=== PATIENT | female | born 1940 | race Caucasian/White ===

== ENCOUNTER → 2022-06-21 12:52 | Outpatient (CLI) | payer MEDICARE, BC, SELFPAY ==
--- NOTE | 2022-06-21 | DI.CT.S_ITS ---
PROCEDURE: CT SINUS SCREEN WO CON INDICATIONS: Deviated nasal septum TECHNIQUE: Noncontrast 3.0 mm axial images acquired from the frontal sinuses to the mid-sella, with coronal and sagittal reformats. For radiation dose reduction, the following was used: automated exposure control, adjustment of mA and/or kV according to patient size. COMPARISON: None. FINDINGS: Image quality: Excellent. Maxillary Sinuses: No bony remodeling or destruction. Sinuses are clear. Ethmoid Air Cells: No bony remodeling or destruction. Sinuses are clear. Sphenoid Sinuses: No bony remodeling or destruction. Sinuses are clear. Frontal Sinuses: No bony remodeling or destruction. Sinuses are clear. Ostiomeatal Complexes: Ostiomeatal complexes are patent. No John cells. Miscellaneous: Visualized intra-orbital contents are normal. No nicky bullosa or paradoxical turbinate curvature. No nasal septal deviation. IMPRESSION: 1. Nasal septum is very nearly midline. 2. Sinuses are clear Dictated by: Rodney Alfred M.D. on 06/21/2022 at 15:35 Approved by: Rodney Alfred M.D. on 06/21/2022 at 15:36
== END ==
PROVIDERS: PCP Family Medicine; Referring Provider Otolaryngology; Visit Provider Otolaryngology
DX: J32.4 Chronic pansinusitis (principal); J34.89 Other specified disorders of nose and nasal sinuses; G44.89 Other headache syndrome
CPT/HCPCS: 70486

== ENCOUNTER → 2023-01-03 09:05 | Outpatient (CLI) | payer MEDICARE, BC, SELFPAY ==
--- NOTE | 2023-01-03 | DI.ECHO.S_ITS ---
[facility] +---------+ : : [address] : : : : [id number] : : : : Phone: [phone]+ Echocardiogram Report + + :Name: CAMRYN PENA Study Date: 01/03/2023 Height: 66 in : :[facility] ReadingLocation: Weight: 125 lb : : Gender: Female BSA: 1.6 m2 : :: 1940 Age: 82 yrs BP: 160/79 mmHg: :Reason For Study: Shortness of Breath : :Ordering Physician: REA, : :LURDES Performed By: Leonie Terrazas : :Referring: LURDES HUERTA : + + Interpretation Summary 1) Normal left ventricular thicknes and, size with low normal systolic function (EF 50-55%). 2) Normal right ventricular size and function. 3) There is mild aortic regurgitation. 4) No prior Echo available for comparison. Procedure: A two-dimensional transthoracic echocardiogram with color flow and Doppler was performed. The study quality was technically adequate. There is no prior echocardiogram noted for this patient. Left Ventricle: The left ventricle is normal in size and wall thickness. The ejection fraction is estimated to be 50-55%. There are no focal wall motion abnormalities. Diastolic parameters suggest a relaxation abnormality of the left ventricle, consistent with probable normal filling pressures. Right Ventricle: The right ventricle is normal in size and function. Atria: The left atrial size is normal. Right atrial size is normal. There is no Doppler evidence for an interatrial shunt. Mitral Valve: The mitral valve is normal. There is no mitral valve stenosis. There is trace mitral regurgitation. Aortic Valve: The aortic valve is trileaflet. There is mild aortic valve sclerosis. There is no aortic valve stenosis. There is mild aortic regurgitation. Tricuspid Valve: The tricuspid valve is normal. There is no tricuspid stenosis. There is mild tricuspid regurgitation. The right ventricular systolic pressure is estimated to be at least 32 mmHg based on an estimated right atrial pressure of 3 mm Hg. Pulmonic Valve: The pulmonic valve is not well visualized. There is no pulmonic valvular stenosis. There is trace pulmonic regurgitation. Great Vessels: The aortic root is normal size. The ascending aorta is normal in size. The pulmonary artery is normal size. The IVC is of normal diameter and collapses greater than 50% with a sniff. This suggests a low right atrial pressure of 3 mm Hg. Pericardium/ Pleura There is no pericardial effusion. There is no pleural effusion. MMode/2D Measurements & Calculations LVIDd: 4.4 cm LVOT diam: 1.9 cm LVIDs: 3.3 cm Ao root diam: 3.3 cm FS: 25.0 % asc Aorta Diam: 3.4 cm EPSS: 1.3 cm IVSd: 0.90 cm LVPWd: 0.90 cm LV mancia. diameter/BSA (cm/m^2): 2.7 LV sys. diameter/BSA (cm/m^2): 2.0 LA A2 area: 18.0 cm2 RA long axis: 5.1 cm LA A4 area: 12.0 cm2 RA area: 12.6 cm2 LA length (vol): 5.3 cm RA vol: 26.5 ml LA vol: 34.5 ml RA : 16.2 ml/m2 LA vol index: 21.1 ml/m2 RVD1 (basal): 3.1 cm LVLs ap4: 6.9 cm LVLd ap2: 7.2 cm TAPSE_phl: 2.3 cm LVLs ap2: 6.5 cm Doppler Measurements & Calculations Ao V2 max: 109.5 cm/sec LVOT Max Michael: 90.0 cm/sec Ao V2 mean: 77.7 cm/sec LV V1 max P.2 mmHg Ao max P.0 mmHg LV V1 VTI: 19.1 cm Ao mean P.0 mmHg PAZ(I,D): 2.2 cm2 Ao V2 VTI: 24.5 cm PAZ(V,D): 2.3 cm2 sev ratio: 0.78 PAZ indexed to BSA (cm^2/m^2): 1.3 MV E max michael: 58.2 cm/sec TR max michael: 267.0 cm/sec MV A max michael: 110.0 cm/sec TR max P.5 mmHg MV E/A: 0.53 PA V2 max: 91.2 cm/sec Med Peak E' Michael: 7.1 cm/sec PA V2 mean: 62.7 cm/sec E/E' med: 8.2 PA mean P.0 mmHg Lat Peak E' Michael: 8.6 cm/sec PA pr(Accel): 43.5 mmHg E/E' lat: 6.8 E/e' average: 7.5 MV dec time: 0.24 sec SV(LVOT): 54.0 ml AV VR_phl: 0.82 PAZ(VTI)/BSA_phl: 1.3 Reading Physician:09:49 PM
== END ==
PROVIDERS: PCP Family Medicine; Referring Provider Internal Medicine Cardiovascular Disease; Visit Provider Internal Medicine Cardiovascular Disease
DX: R06.02 Shortness of breath (principal); I08.2 Rheumatic disorders of both aortic and tricuspid valves
CPT/HCPCS: 93306

== ENCOUNTER → 2023-01-24 09:35 | Outpatient (CLI) | payer MEDICARE, BC, SELFPAY | PROVIDERS: PCP Family Medicine; Referring Provider Internal Medicine Cardiovascular Disease; Visit Provider Internal Medicine Cardiovascular Disease | DX: R06.02 Shortness of breath (principal); Z87.891 Personal history of nicotine dependence; J98.8 Other specified respiratory disorders | CPT/HCPCS: 94060; 94726; 94729 ==

== ENCOUNTER 2023-04-17 08:01 | Emergency (ER) | payer MEDICARE, BC, SELFPAY ==
[2023-04-17] VITALS (8 sets, daily range): BP systolic 142–174; BP diastolic 78–83; PULSE 79–92; RESP 15–20; TEMP 36.6–36.8; O2SAT 94–100; BMI 21.2
--- NOTE | 2023-04-17 08:12 | ED_ITS ---
HPI - SOB/Dyspnea General Chief Complaint: Shortness of Breath/Dyspnea Stated Complaint: SOB Time Seen by Provider: 04/17/23 08:02 Source: patient, EMS, RN notes reviewed and old records reviewed Mode of arrival: EMS Limitations: no limitations History of Present Illness HPI Narrative: This is an 83-year-old female with history of hypertension and COPD. Patient states has had a slow decrease in her breathing but particularly in the last 2 days. She is felt more tight. She denies any chest pain or pressure. No fevers. She is noticed some nasal congestion or difficulty breathing through her nose. Patient states she has had a dry cough that has been nonproductive. Denies diaphoresis. Denies nausea or vomiting. No diarrhea or constipation, no urinary symptoms. She is chronic swelling bilateral lower extremities she is unsure if it is any worse but does not think so. Patient does an albuterol inhaler which he has been using but finding less helpful for the last day. She does not have steroid inhalers. She states her medications at home for blood pressure. She is allergic to penicillin. She has not recently been on any prednisone but has taken it in the past. Note history of smoking quit 20 years ago. PCP is Dr. Coronel. Related Data Home Medications Medication Instructions Recorded Confirmed vitamins A,C,P-emuo-mpqygj 4,296 1 cap PO BID 02/27/22 02/27/22 mcg-226 mg-90 mg capsule (PreserVision AREDS) Previous Rx's Medication Instructions Recorded albuterol sulfate 90 mcg/actuation See Rx Instructions .Route 04/17/23 breath activated powder inhaler .COMPLEX PRN shortness of breath or wheezing #1 ea prednisone 10 mg tablets in a dose See Rx Instructions PO .COMPLEX 04/17/23 pack #21 ea Allergies Allergy/AdvReac Type Severity Reaction Status Date / Time Penicillins Allergy Intermediate Rash and Verified 02/27/22 09:30 swelling Shell beans Allergy Intermediate swelling Uncoded 02/27/22 09:30 and blistering around mouth, rash Review of Systems Review of Systems ROS Unobtainable: All systems reviewed & are unremarkable except as noted in HPI and below Patient History Medical History COPD (chronic obstructive pulmonary disease) Macular degeneration Tinnitus Hearing loss Surgical History Anesthesia History of surgery on wrist (~2017) Family History Father History of emphysema Mother Alzheimer's disease Brother No problems noted. Social History Smoking Status: Former smoker (Quit 1998 ) Tobacco: How many years used: 30 alcohol intake: current (1 glass of wine weekly ) substance use type: does not use Smoking Status: Former smoker (Quit 1998 ) Exam Narrative Exam Narrative: GENERAL: Alert and oriented x three, elderly female in mild distress. HEENT: Head normocephalic, atraumatic, EOMI, pupils reactive, face symmetric, moist mucous membranes NECK: Supple, full range of motion CARDIOVASCULAR: Regular rate and rhythm without murmurs, rubs or gallops. No JVD. Mild bilateral lower extremity edema, nonpitting. RESPIRATORY: Breath sounds equal bilaterally, faint expiratory wheezes bilateral upper and lower lungs, no tachypnea, speaks in full sentences. No rales or crackles. Patient is receiving nebulizer treatment during evaluation. ABDOMEN: Soft, nontender. Normoactive bowel sounds all 4 quadrants. No guarding or rebound, rigidity, no mass : No CVA tenderness EXTREMITIES: Normal range of motion, no clubbing. Neurovascularly intact NEUROLOGICAL: Cranial nerves II through XII grossly intact. Moving all extremities SKIN: Warm, dry, no petechiae, no rashes or lesions. Initial Vital Signs Initial Vital Signs: Vital Signs Blood Pressure 174/79 H 04/17/23 08:05 Course Orders Ordered: Discontinued Medications Albuterol (Albuterol 2.5 Mg/3 Ml Neb (Adult)) 5 mg INH NOW ONE Stop: 04/17/23 08:12 Last Admin: 04/17/23 08:33 Dose: 5 mg Documented By: SAT Methylprednisolone (Methylprednisolone 125 Mg/2 Ml Vial) 125 mg IV NOW ONE Stop: 04/17/23 08:11 Last Admin: 04/17/23 08:50 Dose: 125 mg Documented By: RB Vital Signs Vital signs: Vital Signs - 8 hr 04/17/23 08:05 04/17/23 08:06 04/17/23 08:12 Temperature 98.2 F Pulse Rate 80 79 Respiratory Rate 20 Blood Pressure 174/79 H 174/79 H Pulse Oximetry 100 94 Oxygen Delivery Method Room Air 04/17/23 08:30 04/17/23 08:37 04/17/23 08:38 Temperature Pulse Rate 80 82 Respiratory Rate 18 Blood Pressure 147/83 H Pulse Oximetry 97 99 Oxygen Delivery Method Room Air 04/17/23 08:38 04/17/23 09:00 Temperature Pulse Rate 84 82 Respiratory Rate 15 Blood Pressure Pulse Oximetry 98 94 Oxygen Delivery Method MDM - SOB/Dyspnea Lab Data 04/17/23 08:25 04/17/23 08:25 Labs: Lab Results 04/17/23 Range/Units 08:25 WBC 4.6 (4.5-11.0) X10^3/uL RBC 4.09 (4.0-5.2) X10^6/uL Hgb 12.7 (12.0-16.0) g/dL Hct 37.5 (36-46) % MCV 91.5 (80-100) fL MCH 31.1 (26-34) PG MCHC 34.0 (30-36) % RDW 13.2 (11.6-14.8) % Plt Count 251 (150-400) X10^3/uL Neut % (Auto) 46.2 L (50-75) % Lymph % (Auto) 31.7 (25-40) % Faulk % (Auto) 14.3 H (3-14) % Eos % (Auto) 6.5 H (2-4) % Baso % (Auto) 1.3 (0-2) % Neut # (Auto) 2100 (4539-1414) /uL Lymph # (Auto) 1500 (2971-0411) /uL Faulk # (Auto) 700 (0-900) /uL Eos # (Auto) 300 (0-450) /uL Baso # (Auto) 100 (0-100) /uL Sodium 129 L (137-145) mmol/L Potassium 4.1 (3.4-5.1) mmol/L Chloride 94 L (98-107) mmol/L Carbon Dioxide 29 (22-32) mmol/L BUN 14 (7-17) mg/dL Creatinine 0.57 (0.52-1.04) mg/dL Estimated GFR > 60 (>60) mL/min BUN/Creatinine Ratio 24.6 H (6-22) Glucose 95 (80-110) mg/dL Calcium 9.7 (8.4-10.2) mg/dL Total Bilirubin 0.9 (0.2-1.3) mg/dL AST 30 (14-36) IU/L ALT 25 (<35) IU/L Alkaline Phosphatase 75 (38-126) U/L Total Creatine Kinase 66 (30-135) U/L Troponin I < 0.012 (0.01-0.034) ng/mL NT-Pro-B Natriuret Pep 601 H (<450) pg/mL Total Protein 7.5 (6.3-8.2) g/dL Albumin 4.3 (3.5-5.0) g/dL Globulin 3.2 (1.7-4.1) g/dL Albumin/Globulin Ratio 1.3 (1.0-2.8) Lipase 370 H (23-300) U/L SARS-CoV-2 (PCR) Negative (Negative) Influenza A (RT-PCR) Flu a negative (NEGATIVE) Influenza B (RT-PCR) Flu b negative (NEGATIVE) RSV (PCR) Negative (Negative) Imaging Data Chest x-ray: Radiologist's Impression: Close Chest X-Ray (Signed) Mercedes Armendariz - 04/17/23 PFT Result 01/24/23 Echocardiogram Ultrasound (Signed) BradleyAmbika - 01/03/[address] (Signed) Rodney Alfred - 06/21/22 [place] [address] XRay Report Signed Patient: Allyson Alas MR#: [id number] : 1940 Acct:[id number] Age/Sex: 83 / F Date of Service: 04/17/23 Loc: ED Accession Number: [id number] Procedure: XR chest 1V Ordering Provider: Tanya Smart D.O. PROCEDURE: XR CHEST 1V INDICATIONS: sob, wheeze, hx COPD TECHNIQUE: One view of the chest was acquired. COMPARISON: None. FINDINGS: Surgical changes and devices: None. Lungs and pleura: Lungs are clear. No pleural effusions or pneumothorax. Mediastinum: Mediastinal contours appear normal. Heart size is normal. Bones and chest wall: No suspicious bony lesions. Overlying soft tissues appear unremarkable. IMPRESSION: No acute cardiopulmonary abnormality is seen. Dictated by: Mercedes Armendariz M.D. on 04/17/2023 at 9:05 Approved by: Mercedes Armendariz M.D. on 04/17/2023 at 9:05 ECG Data Attestation: I personally reviewed and interpreted this ECG as follows: Prior ECG tracings: not available for review Interpretation: Sinus rhythm rate of 79 IN 170 QRS is 72 QTC of 426. No acute ST elevation or depression appreciated. Does not have any priors for comparison. MDM Narrative Medical decision making narrative: 83-year-old female with known COPD and hypertension who is wheezy on examination, does not appear to be in significant respiratory distress. Vital signs patient is hypertensive but no hypoxia. 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 Patient does have some wheezes on examination. Suspect possible viral syndrome causing flare of her COPD but patient does have some mild edema bilateral lower extremities she does not believe that is much worse than typical so will include labs, chest x-ray EKG. Labs show no leukocytosis no leftward shift, normal hemoglobin and platelets elevation of monocytes 14%. Sodium is 129 chloride 94 normal creatinine and potassium normal LFTs troponins negative with a BNP of 601 and lipase of 370. COVID/influenza/RSV is negative Chest x-ray shows no acute change EKG no priors for comparison but no acute changes. Patient noted to have echo from December of 2022 with a EF of 50-55%, right ventricular size and function mild aortic regurg. Plan for Solu-Medrol, additional albuterol and re-evaluation patient's wheeze has almost entirely resolved she feels much improved. Reviewed all if patient's findings suspect she has viral syndrome flaring her COPD at this time. She typically uses her albuterol 4-5 times daily but does 2 puffs at a time we will have her increase to 4-8 puffs daily, offered to write for nebulizer but patient defers. We will also place her on steroids for short term. Discussed return precautions all questions answered. Patient felt comfortable with this plan she does describe a lot of congestion in the nasal area so discussed can try an oral antihistamine [id number]. Discharge Plan Departure Patient Disposition: Home Clinical Impression: Acute exacerbation of chronic obstructive pulmonary disease Instructions: DI for Chronic Obstructive Pulmonary Disease Activity Restrictions/Additional Instructions: Please follow up for recheck if you are not having any improvement over the next several days. Take steroids until gone. Use inhaler 2-4 puffs every 4 hours as needed for wheezing or shortness of breath. Prescription sent to [facility] in [place]. You can take a loratadine or similar antihistamine [id number] once daily for nasal congestion. Please return if you are having new or worsening symptoms, new chest pain, increasing shortness of breath, lightheadedness or passing out, increasing swelling in extremities or other new or concerning changes. Prescriptions: New prednisone 10 mg tablets,dose pack See Rx Instructions .ROUTE .COMPLEX Qty: 21 0RF Rx Instructions: Take 6 tablets p.o. x1 day, then 5 tablets p.o. x1 day, then 4 tablets p.o. x1 day, then 3 tablets p.o. x1 day, then 2 tablets p.o. x1 day, then 1 tablet p.o. x1 day albuterol sulfate 90 mcg/actuation aerosol powdr breath activated See Rx Instructions .ROUTE .COMPLEX PRN (Reason: shortness of breath or wheezing) Qty: 1 0RF Rx Instructions: May use 4-8 puffs Q4 hours prn wheezing/shortness of breath No Action PreserVision AREDS 14,320-226-200 [id number] capsule 1 cap PO BID Referrals: Chinedu Coronel [Primary Care Provider] - Stand Alone Forms: Patient Portal/API
[2023-04-17 08:33] LABS: Add Manual Diff / Slide Review NO; Basophils Absolute Auto 100 /uL (0-100); Basophils Percent Auto 1.3 % (0-2); Eosinophils Absolute Auto 300 /uL (0-450); Eosinophils Percent Auto 6.5 % (2-4); Hematocrit 37.5 % (36-46); Hemoglobin 12.7 g/dL (12.0-16.0); Lymphocytes Absolute Auto 1500 /uL (1100-4500); Lymphocytes Percent Auto 31.7 % (25-40); Mean Corpuscular Hemoglobin 31.1 PG (26-34); Mean Corpuscular Volume 91.5 fL (80-100); Monocytes Absolute Auto 700 /uL (0-900); Monocytes Percent Auto 14.3 % (3-14); Neutrophils Absolute Auto 2100 /uL (1500-7000); Neutrophils Percent Auto 46.2 % (50-75); Platelet Count 251 X10^3/uL (150-400); Red Blood Cell Count 4.09 X10^6/uL (4.0-5.2); Red Cell Distribution Width 13.2 % (11.6-14.8); White Blood Cell Count 4.6 X10^3/uL (4.5-11.0)
[2023-04-17] MEDS: ALBUTEROL 2.5 MG/3 ML NEB (ADULT) 5 MG INH (08:33)
[2023-04-17 08:44] LABS: Alanine Aminotransferase 25 IU/L (<35); Albumin 4.3 g/dL (3.5-5.0); Albumin Globulin Ratio 1.3 (1.0-2.8); Alkaline Phosphatase 75 U/L (38-126); Aspartate Aminotransferase 30 IU/L (14-36); BUN Creatinine Ratio 24.6 (6-22); Bilirubin Total 0.9 mg/dL (0.2-1.3); Blood Urea Nitrogen 14 mg/dL (7-17); Calcium 9.7 mg/dL (8.4-10.2); Carbon Dioxide 29 mmol/L (22-32); Chloride 94 mmol/L (98-107); Creatine Kinase 66 U/L (30-135); Estimated Glomerular Filt Rate > 60 mL/min (>60); Globulin 3.2 g/dL (1.7-4.1); Glucose 95 mg/dL (80-110); HEMOLYSIS < 15 (0-50); Lipase 370 U/L (23-300); Potassium 4.1 mmol/L (3.4-5.1); Sodium 129 mmol/L (137-145); Total Protein 7.5 g/dL (6.3-8.2)
[2023-04-17] MEDS: methylPREDNISolone 125 MG/2 ML VIAL IV (08:50)
[2023-04-17 08:56] LABS: NT-proBNP (BNP-Adult 18+) 601 pg/mL (<450); Troponin I < 0.012 ng/mL (0.01-0.034)
[2023-04-17 09:09] LABS: Influenza A - CEPHEID Flu A NEGATIVE (NEGATIVE); Influenza B - CEPHEID Flu B NEGATIVE (NEGATIVE); Respiratory Syncytial Virus Negative (Negative)
[2023-04-17 09:10] LABS: COVID-19 CEPHEID 4-PLEX PCR Negative (Negative)
== END 2023-04-17 09:41 | disposition home or self-care (01) ==
PROVIDERS: Emergency Provider Emergency Medicine; PCP Family Medicine
DX: J44.1 Chronic obstructive pulmonary disease with (acute) exacerbation (principal)
CPT/HCPCS: 0241U; 36415; 71045; 80053; 82550; 83690; 83880; 84484; 85025; 93005; 93010; 96374; 99284; J2930; J7613

== ENCOUNTER → 2023-10-22 13:51 | Outpatient (CLI) | payer MEDICARE, BC, SELFPAY ==
[2023-10-22 15:25] LABS: BUN Creatinine Ratio 22.2 (6-22); Blood Urea Nitrogen 18 mg/dL (7-17); Calcium 8.7 mg/dL (8.4-10.2); Carbon Dioxide 26 mmol/L (22-32); Chloride 95 mmol/L (98-107); Estimated Glomerular Filt Rate > 60 mL/min (>60); Glucose 117 mg/dL (80-110); HEMOLYSIS < 15 (0-50); Potassium 4.4 mmol/L (3.4-5.1); Sodium 130 mmol/L (137-145)
== END ==
PROVIDERS: PCP Family Medicine; Referring Provider Family Medicine; Visit Provider Family Medicine
DX: I10 Essential (primary) hypertension (principal); E87.1 Hypo-osmolality and hyponatremia
CPT/HCPCS: 36415; 80048

== ENCOUNTER → 2024-04-16 15:21 | Outpatient (CLI) | payer MEDICARE, BC, SELFPAY ==
[2024-04-16 16:33] LABS: Influenza A - CEPHEID Flu A POSITIVE (NEGATIVE); Influenza B - CEPHEID Flu B NEGATIVE (NEGATIVE); Respiratory Syncytial Virus Negative (Negative)
[2024-04-16 16:52] LABS: COVID-19 CEPHEID 4-PLEX PCR Negative (Negative)
== END ==
PROVIDERS: PCP Family Medicine; Visit Provider Nurse Practitioner Family
DX: R05.1 Acute cough (principal)
CPT/HCPCS: 0241U

== ENCOUNTER → 2024-04-16 16:00 | Outpatient (CLI) | payer MEDICARE, BC, SELFPAY ==
--- NOTE | 2024-04-16 16:04 | DI.RAD.S_ITS ---
PROCEDURE: XR CHEST 2V INDICATIONS: Cough TECHNIQUE: 2 views of the chest were acquired. COMPARISON: [facility], CR, XR CHEST 1V, 04/17/2023, 8:27. FINDINGS: Surgical changes and devices: None. Lungs and pleura: Lungs are clear. No pleural effusions or pneumothorax. Mediastinum: Mediastinal contours are normal. Heart size is normal. Bones and chest wall: No suspicious bony abnormalities. Soft tissues appear unremarkable. IMPRESSION: No acute cardiopulmonary abnormality is seen. Dictated by: Tio Charles M.D. on 04/16/2024 at 16:25 Approved by: Tio Charles M.D. on 04/16/2024 at 16:26
== END ==
LOC: RAD 16:04
PROVIDERS: PCP Family Medicine; Referring Provider Physician Assistant; Visit Provider Physician Assistant
DX: R05.1 Acute cough (principal)
CPT/HCPCS: 0241U; 71046

== ENCOUNTER 2024-04-18 12:09 | Inpatient (IN) | payer MEDICARE, BC, SELFPAY ==
[2024-04-18] VITALS (19 sets, daily range): BP systolic 157–180; BP diastolic 77–106; PULSE 83–149; RESP 16–46; TEMP 36.6–36.9; O2SAT 82–96; BMI 20.1
--- NOTE | 2024-04-18 12:37 | DI.RAD.S_ITS ---
PROCEDURE: XR CHEST 2V INDICATIONS: cough, flu A TECHNIQUE: 2 views of the chest were acquired. COMPARISON: [facility], , XR CHEST 1V, 04/17/2023, 8:27. [facility], CR, XR CHEST 2V, 04/16/2024, 16:13. FINDINGS: Surgical changes and devices: None. Lungs and pleura: The lungs are hyperexpanded, with flattening of the hemidiaphragms seen. No pneumothorax or large pleural effusion can be seen. Mediastinum: The cardiac contours are within normal limits. The aorta demonstrates calcification and tortuosity. Bones and chest wall: No suspicious bony abnormalities. Age-appropriate bony degenerative changes are seen. Accentuated thoracic kyphosis is seen. Soft tissues appear unremarkable. IMPRESSION: Hyperexpanded lungs, without an acute cardiopulmonary process identified. Dictated by: Barrett Garg M.D. on 04/18/2024 at 12:28 Approved by: Barrett Garg M.D. on 04/18/2024 at 12:30
[2024-04-18] MEDS: ALBUTEROL/IPRATROPIUM 3 ML AMPUL 6 ML INH (15:14)
--- NOTE | 2024-04-18 15:20 | PC.NURSE ---
Pt appears in respiratory distress. Pt is nasal flaring and using accessory muscles to breath. RT called for evaluation. Pt has productive cough. VSS.
--- NOTE | 2024-04-18 15:21 | EKG_ITS ---
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
[2024-04-18 15:22] LABS: Add Manual Diff / Slide Review NO; Basophils Absolute Auto 0 /uL (0-100); Basophils Percent Auto 0.2 % (0-2); Eosinophils Absolute Auto 0 /uL (0-450); Eosinophils Percent Auto 0.1 % (2-4); Hematocrit 37.1 % (36-46); Hemoglobin 12.5 g/dL (12.0-16.0); Lymphocytes Absolute Auto 1000 /uL (1100-4500); Lymphocytes Percent Auto 16.4 % (25-40); Mean Corpuscular HGB Conc 33.7 % (30-36); Mean Corpuscular Hemoglobin 30.4 PG (26-34); Mean Corpuscular Volume 90.2 fL (80-100); Monocytes Absolute Auto 700 /uL (0-900); Monocytes Percent Auto 11.6 % (3-14); Neutrophils Absolute Auto 4400 /uL (1500-7000); Neutrophils Percent Auto 71.7 % (50-75); Platelet Count 293 X10^3/uL (150-400); Red Blood Cell Count 4.12 X10^6/uL (4.0-5.2); Red Cell Distribution Width 13.5 % (11.6-14.8); White Blood Cell Count 6.1 X10^3/uL (4.5-11.0)
[2024-04-18 15:36] LABS: Alanine Aminotransferase 45 IU/L (<35); Albumin 4.4 g/dL (3.5-5.0); Albumin Globulin Ratio 1.5 (1.0-2.8); Alkaline Phosphatase 100 U/L (38-126); Aspartate Aminotransferase 61 IU/L (14-36); BUN Creatinine Ratio 22.2 (6-22); Bilirubin Total 0.5 mg/dL (0.2-1.3); Blood Urea Nitrogen 12 mg/dL (7-17); Calcium 9.4 mg/dL (8.4-10.2); Carbon Dioxide 23 mmol/L (22-32); Chloride 95 mmol/L (98-107); Creatine Kinase 222 U/L (30-135); Estimated Glomerular Filt Rate > 60 mL/min (>60); Globulin 2.9 g/dL (1.7-4.1); Glucose 109 mg/dL (80-110); HEMOLYSIS < 15 (0-50); Lipase 236 U/L (23-300); Potassium 5.2 mmol/L (3.4-5.1); Sodium 129 mmol/L (137-145); Total Protein 7.3 g/dL (6.3-8.2)
--- NOTE | 2024-04-18 15:39 | ED.SOB ---
HPI - SOB/Dyspnea General Chief Complaint: Shortness of Breath/Dyspnea Stated Complaint: flu Time Seen by Provider: 04/18/24 14:28 Mode of arrival: Ambulatory History of Present Illness HPI Narrative: Patient is a 84-year-old female history of COPD emphysema hypertension recently diagnosed with influenza a 2 days ago presenting today with increasing shortness of breath. There was an issue with the prednisone prescription did not get ordered however she started it yesterday or today. Still having significant difficulty breathing mostly with exertion. She feels like her chest is tight. She coughs so hard she vomits. She also notes to have significant lower extremity edema bilaterally. She has no prior history of congestive heart failure. She was drinking fluids but does have decrease in appetite. Related Data Home Medications Medication Instructions Recorded Confirmed vitamins A,C,O-vwnh-nnsvrc 4,296 1 cap PO BID 02/27/22 04/16/24 mcg-226 mg-90 mg capsule (PreserVision AREDS) albuterol sulfate 90 mcg/actuation 2 puff inhalation Q6H PRN wheezing 10/22/23 04/16/24 aerosol inhaler losartan 50 mg tablet 50 mg PO DAILY 04/16/24 04/16/24 Previous Rx's Medication Instructions Recorded albuterol sulfate 90 mcg/actuation 2 inh inhalation Q6H PRN shortness 07/02/23 breath activated powder inhaler of breath or wheezing #1 ea fluticasone 250 mcg-salmeterol 50 1 inh inhalation BID #60 ea 07/02/23 mcg/dose blistr powdr for inhalation amlodipine 5 mg tablet (Norvasc) 5 mg PO DAILY #90 tabs 10/22/23 furosemide 20 mg tablet 20 mg PO DAILY #20 tabs 12/05/23 albuterol sulfate 2.5 mg/3 mL 2.5 mg (3 mL) inhalation Q6H #75 mL 04/17/24 (0.083 %) solution for nebulization benzonatate 200 mg capsule 200 mg PO BID-TID PRN cough #30 04/17/24 caps prednisone 10 mg tablets in a dose 10 mg PO DAILY #21 ea 04/17/24 pack furosemide 20 mg tablet 20 mg PO DAILY #5 tabs 04/18/24 Allergies Allergy/AdvReac Type Severity Reaction Status Date / Time doxycycline Allergy Intermediate TENNITIUS Verified 04/18/24 12:38 Penicillins Allergy Intermediate Rash and Verified 04/18/24 12:38 swelling Shell beans Allergy Intermediate swelling Uncoded 04/18/24 12:38 and blistering around mouth, rash Patient History Medical History Benign essential HTN COPD (chronic obstructive pulmonary disease) Macular degeneration Tinnitus Hearing loss Surgical History Anesthesia History of surgery on wrist (~2017) Family History Father History of emphysema Mother Alzheimer's disease Brother No problems noted. Social History Smoking Status: Former smoker Tobacco: How many years used: 30 alcohol intake: current (1 glass of wine weekly ) substance use type: does not use Smoking Status: Former smoker alcohol intake frequency: a few times a week Exam Initial Vital Signs Initial Vital Signs: Vital Signs Temperature 98 F 04/18/24 12:31 Pulse Rate 104 H 04/18/24 12:31 Respiratory Rate 18 04/18/24 12:31 Blood Pressure 180/85 H 04/18/24 12:31 Pulse Oximetry 94 04/18/24 12:31 Oxygen Delivery Method Room Air 04/18/24 12:31 GENERAL: Alert 84-year-old female and in no acute distress. HEENT: Head atraumatic,EOMI, pupils reactive, face symmetric, moist mucous membranes CARDIOVASCULAR: Regular rate and rhythm without murmurs, rubs or gallops. RESPIRATORY: Wheezing bilaterally ABDOMEN: Soft, nontender. Normoactive bowel sounds all 4 quadrants. No guarding or rebound. EXTREMITIES: Normal range of motion, no clubbing. Bilateral lower extremity edema Neurovascularly intact NEUROLOGICAL: Alert and oriented x4.Normal gait and speech. Cranial nerves II through XII grossly intact. SKIN: Warm, dry, no laceration, no petechiae, no rashes or lesions. Course Orders Ordered: ED Orders 04/18/24 12:37 Chest [XR chest 2V] Stat 04/18/24 14:29 EKG-12 Lead Stat 04/18/24 15:15 Complete Blood Count AUTO DIFF Stat Comprehensive Metabolic Panel Stat Lipase Stat NT-proBNP (BNP-Adult 18+) Stat Troponin & CK Cardiac Panel Stat 04/18/24 16:10 Sputum Culture Stat Discontinued Medications Albuterol/Ipratropium (Albuterol/Ipratropium 3 Ml Ampul) 6 ml INH NOW ONE Stop: 04/18/24 15:13 Last Admin: 04/18/24 15:14 Dose: 6 ml Documented By: DEBRA Furosemide (Furosemide 40 Mg/4 Ml Vial) 20 mg IV NOW ONE Stop: 04/18/24 15:55 Last Admin: 04/18/24 16:02 Dose: 20 mg Documented By: Methylprednisolone (Methylprednisolone 125 Mg/2 Ml Vial) 125 mg IV NOW ONE Stop: 04/18/24 15:57 Last Admin: 04/18/24 16:02 Dose: 125 mg Documented By: Vital Signs Vital signs: Vital Signs - 8 hr 04/18/24 12:31 04/18/24 14:17 04/18/24 14:18 Temperature 98 F Pulse Rate 104 H 102 H 100 H Respiratory Rate 18 Blood Pressure 180/85 H Pulse Oximetry 94 93 86 L Oxygen Delivery Method Room Air Room Air Oxygen Flow Rate 04/18/24 14:18 04/18/24 14:30 04/18/24 14:30 Temperature Pulse Rate 83 Respiratory Rate Blood Pressure 180/85 H 159/85 H Pulse Oximetry 95 Oxygen Delivery Method Nasal Cannula Oxygen Flow Rate 2 04/18/24 15:00 04/18/24 15:00 04/18/24 15:15 Temperature Pulse Rate 94 H 96 H Respiratory Rate 16 Blood Pressure 160/90 H Pulse Oximetry 94 95 Oxygen Delivery Method Room Air Oxygen Flow Rate 04/18/24 15:30 04/18/24 16:00 04/18/24 16:00 Temperature Pulse Rate 102 H 94 H Respiratory Rate 32 H 25 H Blood Pressure 159/79 H Pulse Oximetry 94 96 Oxygen Delivery Method Oxygen Flow Rate 04/18/24 16:30 04/18/24 16:30 04/18/24 17:00 Temperature Pulse Rate 104 H 92 H Respiratory Rate 46 H 21 Blood Pressure 160/106 H Pulse Oximetry 94 95 Oxygen Delivery Method Oxygen Flow Rate 04/18/24 17:00 04/18/24 17:10 04/18/24 17:30 Temperature Pulse Rate 149 H 101 H Respiratory Rate 38 H 34 H Blood Pressure 157/78 H Pulse Oximetry 82 L 95 Oxygen Delivery Method Room Air Oxygen Flow Rate 04/18/24 17:31 04/18/24 17:31 04/18/24 18:00 Temperature Pulse Rate 104 H 92 H Respiratory Rate 37 H 20 Blood Pressure 163/97 H Pulse Oximetry 95 92 Oxygen Delivery Method Oxygen Flow Rate 04/18/24 18:00 Temperature Pulse Rate Respiratory Rate Blood Pressure 163/77 H Pulse Oximetry Oxygen Delivery Method Oxygen Flow Rate MDM - SOB/Dyspnea Lab Data 04/18/24 15:15 04/18/24 15:15 Labs: Lab Results 04/18/24 Range/Units 15:15 WBC 6.1 (4.5-11.0) X10^3/uL RBC 4.12 (4.0-5.2) X10^6/uL Hgb 12.5 (12.0-16.0) g/dL Hct 37.1 (36-46) % MCV 90.2 (80-100) fL MCH 30.4 (26-34) PG MCHC 33.7 (30-36) % RDW 13.5 (11.6-14.8) % Plt Count 293 (150-400) X10^3/uL Neut % (Auto) 71.7 (50-75) % Lymph % (Auto) 16.4 L (25-40) % [place] % (Auto) 11.6 (3-14) % Eos % (Auto) 0.1 L (2-4) % Baso % (Auto) 0.2 (0-2) % Neut # (Auto) 4400 (1289-1796) /uL Lymph # (Auto) 1000 L (8235-7134) /uL [place] # (Auto) 700 (0-900) /uL Eos # (Auto) 0 (0-450) /uL Baso # (Auto) 0 (0-100) /uL Sodium 129 L (137-145) mmol/L Potassium 5.2 H (3.4-5.1) mmol/L Chloride 95 L (98-107) mmol/L Carbon Dioxide 23 (22-32) mmol/L BUN 12 (7-17) mg/dL Creatinine 0.54 (0.52-1.04) mg/dL Estimated GFR > 60 (>60) mL/min BUN/Creatinine Ratio 22.2 H (6-22) Glucose 109 (80-110) mg/dL Calcium 9.4 (8.4-10.2) mg/dL Total Bilirubin 0.5 (0.2-1.3) mg/dL AST 61 H (14-36) IU/L ALT 45 H (<35) IU/L Alkaline Phosphatase 100 (38-126) U/L Total Creatine Kinase 222 H (30-135) U/L Troponin I 0.016 (0.01-0.034) ng/mL NT-Pro-B Natriuret Pep 4540 H (<450) pg/mL Total Protein 7.3 (6.3-8.2) g/dL Albumin 4.4 (3.5-5.0) g/dL Globulin 2.9 (1.7-4.1) g/dL Albumin/Globulin Ratio 1.5 (1.0-2.8) Lipase 236 (23-300) U/L Imaging Data Chest x-ray: Radiologist's Impression: PROCEDURE: XR CHEST 2V INDICATIONS: cough, flu A TECHNIQUE: 2 views of the chest were acquired. COMPARISON: [facility], CR, XR CHEST 1V, 04/17/2023, 8:27. [facility], CR, XR CHEST 2V, 04/16/2024, 16:13. FINDINGS: Surgical changes and devices: None. Lungs and pleura: The lungs are hyperexpanded, with flattening of the hemidiaphragms seen. No pneumothorax or large pleural effusion can be seen. Mediastinum: The cardiac contours are within normal limits. The aorta demonstrates calcification and tortuosity. Bones and chest wall: No suspicious bony abnormalities. Age-appropriate bony degenerative changes are seen. Accentuated thoracic kyphosis is seen. Soft tissues appear unremarkable. IMPRESSION: Hyperexpanded lungs, without an acute cardiopulmonary process identified. Dictated by: Barrett Garg M.D. on 04/18/2024 at 12:28 ECG Data Attestation: I personally reviewed and interpreted this ECG as follows: Prior ECG tracings: available for review Interpretation: Sinus rhythm rate 95 CO interval 158 QRS [address] changes similar to previous EKGs no evidence of ischemia MDM Narrative Medical decision making narrative: MDM CC: Shortness of breath Complicating co-morbidities: COPD Medical records reviewed: Seen at walk-in clinic on 04/16/2024 positive for influenza ED visit from 04/17/2023, 1 year ago, showed increased difficulty breathing Echo in 01/03/2023 shows EF of 50-55% Differential considered: Viral illness COPD exacerbation CHF Exam documented above, pertinent findings include: Wheezing bilaterally bilateral lower extremity edema Lab Test results independently reviewed as above. Pertinent findings: BNP 4540, previously 6011 year ago, troponin 0.016 Sodium 129 potassium 5.2 chloride 95 carbon dioxide 23 BUN 12 creatinine 0.5 Bilirubin 0.5, AST 61, ALT 45 alk-phos 100 WBC 6.1 hemoglobin 12.5 hematocrit 37.1 platelets 293 Independently reviewed EKG as above: No ischemia Imaging studies independently reviewed: No chest x-ray no acute process Consultations: Dea, request tamiflu, however patient has had symptoms for 6 days and tested positive for influenza 2 days ago, out of window. Treatments: Albuterol and Lasix, Solu-Medrol Re-evaluations: Patient is feeling better after Lasix and albuterol. She was urinated quite a bit. Attempted ambulation trial. She did okay initially however by the time she got back to the room O2 sat was 82% and heart rate was 139. She was placed on oxygen. Discussion: Patient 84-year-old female diagnosed with influenza couple of days ago presenting today with increasing shortness of breath. She was have history of COPD. No history of CHF although on her med list it does show that she has previously been on Lasix. She does have some lower extremity edema and elevated BNP today as well suggesting some fluid overload. She has not hypoxic at rest however with exertion she does quickly become hypoxic. Discharge Plan Departure Patient Disposition: Admitted as Observation Clinical Impression: Influenza A, COPD (chronic obstructive pulmonary disease), CHF (congestive heart failure), Acute hyperkalemia Admit Date/Time: 04/18/24 19:44 Admit Provider: Paul Malin
[2024-04-18 15:46] LABS: NT-proBNP (BNP-Adult 18+) 4540 pg/mL (<450)
[2024-04-18 15:48] LABS: Troponin I 0.016 ng/mL (0.01-0.034)
[2024-04-18] MEDS: FUROSEMIDE 40 MG/4 ML VIAL 20 MG IV (16:02)
[2024-04-18] MEDS: methylPREDNISolone 125 MG/2 ML VIAL IV (16:02)
--- NOTE | 2024-04-18 17:25 | PC.NURSE ---
Ambulated Pt in little 20 ft. Pt's HR up to 139, Sats decreased to 82% on RA. Pt gasping for air. Returned to room. Placed on 2L per NC. Sats improved to 94%.
--- NOTE | 2024-04-18 18:56 | PC.NURSE ---
Pt understands that she is being admitted. Call lopes within reach. Denies pain. Pt is tachy to 105, pt transferring self to [facility].
[2024-04-18] MEDS: OSELTAMIVIR 75 MG CAPSULE PO (22:03)
[2024-04-19] VITALS (9 sets, daily range): BP systolic 133–165; BP diastolic 79–99; PULSE 88–113; RESP 14–20; TEMP 36.6–36.9; O2SAT 91–98
--- NOTE | 2024-04-19 03:51 | PM.HP.1 ---
History of Present Illness History of Present Illness Chief complaint: flu Narrative: 84 year old female with past medical history of COPD non O2 depedent, CHF and HTN presents with shortness of breath and coughing. Of note, the patient was diagnosed with influneza 2 days ago and was prescribed prednisone. The patient didn't get it filled right away and started it today after geting the prescription filled. The patient states that she started to have increasing shortness of breath and wheezing. The patient also has ongoing dry cough. The patient admits to have some mild LEs edema bilaterally but denies any chest pain. The patient denies any fever, chills, nausea, vomiting or diarrhea. In our ER, the patient was hemodynamically stable but was requiring 1-2 L of O2 per NC. The patient was given Solumedrol, nebs and Tamiflu. The patient also given IV Lasix 20mg x 1. CXR shows no acute findings. [facility] Medical History Benign essential HTN COPD (chronic obstructive pulmonary disease) Macular degeneration Tinnitus Hearing loss Surgical History Anesthesia History of surgery on wrist (~2017) Family History Father History of emphysema Mother Alzheimer's disease Brother No problems noted. Social History Smoking Status: Former smoker Tobacco: How many years used: 30 alcohol intake: current substance use type: does not use Meds Home Medications and Allergies Home Medications Medication Instructions Recorded Confirmed Type albuterol sulfate 90 mcg/actuation 2 puff inhalation Q6H PRN wheezing 10/22/23 04/18/24 History aerosol inhaler losartan 50 mg tablet 50 mg PO DAILY 04/16/24 04/18/24 History albuterol sulfate 2.5 mg/3 mL 2.5 mg (3 mL) inhalation Q6H #75 mL 04/17/24 04/18/24 Rx (0.083 %) solution for nebulization fluticasone 250 mcg-salmeterol 50 1 ea inhalation BID 04/18/24 04/18/24 History mcg/dose blistr powdr for inhalation furosemide 20 mg tablet 20 mg PO DAILY #5 tabs 04/18/24 04/18/24 Rx Allergies Allergy/AdvReac Type Severity Reaction Status Date / Time doxycycline Allergy Intermediate TENNITIUS Verified 04/18/24 12:38 Penicillins Allergy Intermediate Rash and Verified 04/18/24 12:38 swelling Shell beans Allergy Intermediate swelling Uncoded 04/18/24 12:38 and blistering around mouth, rash Review of Systems Review of Systems ROS: Yes All systems reviewed with the patient and are negative except as otherwise documented Exam Vital Signs (past 8 hours): - 04/18/24 21:00 04/18/24 21:30 04/18/24 21:30 Temperature 98.4 F Pulse Rate 117 H Respiratory Rate 20 Blood Pressure 160/93 H Pulse Oximetry 92 94 Oxygen Delivery Method Nasal Cannula Nasal Cannula Oxygen Flow Rate 0 2 04/19/24 01:00 Temperature 98.1 F Pulse Rate 99 H Respiratory Rate 20 Blood Pressure 165/83 H Pulse Oximetry 91 Oxygen Delivery Method Oxygen Flow Rate 2 Oxygen Delivery Method Nasal Cannula Oxygen Flow Rate 2 Narrative Exam Narrative: Physical Exam: GENERAL: The patient is not in any acute distressed. Awake and alert. HEENT: Nonicteric sclerae, PERRLA, EOMI. Oropharynx clear. Moist mucous membranes. Conjunctivae appear well perfused. HEART: Regular rate and rhythm without murmurs. No lower extremities edema. LUNGS: Clear to auscultation bilaterally. No wheezing, crackles or rhonchi ABDOMEN: Soft, positive bowel sounds, nontender. SKIN: No rash, no excessive bruising, petechiae, or purpura. NEUROLOGIC: AxO x 3. Cranial nerves II-XII intact without motor/sensory deficit. Const General: in distress Objective Labs 04/18/24 15:15 04/18/24 15:15 Labs: Laboratory Results - last 24 hr 04/18/24 15:15 WBC 6.1 RBC 4.12 Hgb 12.5 Hct 37.1 MCV 90.2 MCH 30.4 MCHC 33.7 RDW 13.5 Plt Count 293 Neut % (Auto) 71.7 Lymph % (Auto) 16.4 L [place] % (Auto) 11.6 Eos % (Auto) 0.1 L Baso % (Auto) 0.2 Neut # (Auto) 4400 Lymph # (Auto) 1000 L [place] # (Auto) 700 Eos # (Auto) 0 Baso # (Auto) 0 Sodium 129 L Potassium 5.2 H Chloride 95 L Carbon Dioxide 23 BUN 12 Creatinine 0.54 Estimated GFR > 60 BUN/Creatinine Ratio 22.2 H Glucose 109 Calcium 9.4 Total Bilirubin 0.5 AST 61 H ALT 45 H Alkaline Phosphatase 100 Total Creatine Kinase 222 H Troponin I 0.016 NT-Pro-B Natriuret Pep 4540 H Total Protein 7.3 Albumin 4.4 Globulin 2.9 Albumin/Globulin Ratio 1.5 Lipase 236 Assessment & Plan Assessment & Plan narrative: COPD exacerbation. Admit the patient to medical telemetry as inpatient. Continue IV Solumedrol ,nebs and O2. Treat underlying infection. Influenza pneumonia. Continue Tamiflu. Acute respirator failure with hypoxemia. Currently on 1-2L of O2 per NC. Likely from above. Treat as above and wean down O2 as able. Possible mild acute on chornic heart failure. Strict I/Os daily weight and continue IV lasix 40mg daily. HTN. Monitor BP and treat accordingly. DVT PPx hep SQ Code status DNR/DNI Disposition home in 2 days Time-Based Coding :: [TOTAL MINUTES] spent with patient and on the chart (including review of chart, obtaining history, exam, reviewing outside data, placing orders, documenting exam and treatment plan, and counseling patient) on [DATE].
[2024-04-19] MEDS: methylPREDNISolone 125 MG/2 ML VIAL 60 MG IV ×3 (04:34→21:00)
[2024-04-19 05:44] LABS: Add Manual Diff / Slide Review NO; Basophils Absolute Auto 0 /uL (0-100); Eosinophils Absolute Auto 0 /uL (0-450); Hematocrit 40.5 % (36-46); Hemoglobin 13.9 g/dL (12.0-16.0); Lymphocytes Absolute Auto 1100 /uL (1100-4500); Lymphocytes Percent Auto 17.2 % (25-40); Mean Corpuscular HGB Conc 34.2 % (30-36); Mean Corpuscular Hemoglobin 30.5 PG (26-34); Monocytes Absolute Auto 600 /uL (0-900); Monocytes Percent Auto 9.4 % (3-14); Neutrophils Absolute Auto 4700 /uL (1500-7000); Neutrophils Percent Auto 73.4 % (50-75); Platelet Count 366 X10^3/uL (150-400); Red Blood Cell Count 4.55 X10^6/uL (4.0-5.2); Red Cell Distribution Width 13.4 % (11.6-14.8); White Blood Cell Count 6.4 X10^3/uL (4.5-11.0)
[2024-04-19 06:05] LABS: Alanine Aminotransferase 54 IU/L (<35); Albumin 4.5 g/dL (3.5-5.0); Albumin Globulin Ratio 1.4 (1.0-2.8); Alkaline Phosphatase 105 U/L (38-126); Aspartate Aminotransferase 58 IU/L (14-36); BUN Creatinine Ratio 28.6 (6-22); Bilirubin Total 0.5 mg/dL (0.2-1.3); Blood Urea Nitrogen 18 mg/dL (7-17); Calcium 9.8 mg/dL (8.4-10.2); Carbon Dioxide 28 mmol/L (22-32); Chloride 94 mmol/L (98-107); Estimated Glomerular Filt Rate > 60 mL/min (>60); Globulin 3.2 g/dL (1.7-4.1); Glucose 128 mg/dL (80-110); HEMOLYSIS < 15 (0-50); Potassium 4.5 mmol/L (3.4-5.1); Sodium 131 mmol/L (137-145); Total Protein 7.7 g/dL (6.3-8.2)
[2024-04-19] MEDS: FUROSEMIDE 40 MG/4 ML VIAL IV (08:28)
[2024-04-19] MEDS: HEPARIN 5,000 UNIT/ML VIAL 5000 UNIT SUBCUT ×2 (08:29→21:36)
[2024-04-19] MEDS: OSELTAMIVIR 75 MG CAPSULE PO ×2 (08:29→21:36)
[2024-04-19] MEDS: SODIUM CHLORIDE 0.9% FLUSH 10 ML IV ×2 (08:29→21:55)
[2024-04-19] MEDS: BUDESONIDE 0.5 MG/2 ML NEB INH ×2 (09:04→19:23)
[2024-04-19] MEDS: ALBUTEROL/IPRATROPIUM 3 ML AMPUL INH ×3 (09:05→19:23)
--- NOTE | 2024-04-19 12:03 | PT.IIE ---
Surgical History (Last Reviewed 04/18/24 @ 15:42 by Adelaida Hand DO) Anesthesia History of surgery on wrist (~2017) Medical History (Last Reviewed 04/18/24 @ 15:42 by Adelaida Hand DO) Benign essential HTN COPD (chronic obstructive pulmonary disease) Hearing loss Macular degeneration Tinnitus Physical Therapy Inpatient Evaluation/Re-Eval M1 PT/OT-IP Prior Functional Status Start: 04/19/24 09:19 Freq: NEEDED Status: Active Protocol: Document 04/19/24 11:36 MB (Rec: 04/19/24 12:02 MB [id number]) Medical Review Prior Functional Status Medical History Reviewed Yes Diet/Fluid Consistency Regular Communication WNLs, dyspneic and has to catch her breath often Mobility and Gait I at [facility] Activities of Daily Living and IADL's I Social History Living Arrangements Assisted Living Number of Floors (Floors) One Floor Number of Stairs To Enter/Railing? No steps, does not drive Home Environment Standard Height Toilet,Walk in Shower,Built-In Shower Seat Home Equipment Hand Held Shower,Grab Bars Near Toilet,Grab Bars In Shower Employment Status Retired M2 PT-IP Current Condition Start: 04/19/24 09:19 Freq: NEEDED Status: Active Protocol: Document 04/19/24 11:36 MB (Rec: 04/19/24 12:02 MB [id number]) Physical Therapy Current Condition Current Condition Evaluation Date 04/19/24 Treatment Diagnosis SOB and influenza A M3 PT-IP Subjective Start: 04/19/24 09:19 Freq: NEEDED Status: Active Protocol: Document 04/19/24 11:36 MB (Rec: 04/19/24 12:02 MB [id number]) Subjective Physical Therapy Visit Type Type Initial Evaluation Visit Start Time 11:36 Visit Stop Time 11:53 Number of CONSERVATION SCIENTIST Visits 0 Physical Therapy Visit Comments Patient Comments Pt reports she is SOB and needing to catch her breath with all mobility Therapy Pain Assessment Pain When Pain Assessed At Rest Pain Present Pain Present Denied Pain M4 PT-IP Mobility and Gait Start: 04/19/24 09:19 Freq: NEEDED Status: Active Protocol: Document 04/19/24 11:36 MB (Rec: 04/19/24 12:02 [id number]) PT-Bed Mobility Assessment Supine to Sit Supine to Sit Standby Assistance,Head of Bed Elevated Sit to Supine Sit to Supine Standby Assistance,Head of Bed Elevated,Bedrails Scooting Scooting to Edge of Bed Standby Assistance Scooting Up and Down in Bed Standby Assistance PT-Transfer Assessment Sit to and From Stand Sit to and from Stand Standby Assistance Equipment Transfer Assistive Device None Orthotic/Prosthetic Devices or Brace: No Transfers Transfer Destination Chair Transfer Technique Stand Step Pivot Transfer Ability Level of Assist Standby Assistance Comments Mobility Comments Pt is too DELATORRE to mobilize further and does not like sitting up in the chair. O2 sats on 1.5L O2 drop to 85% transiently and tend to stay in the low 90s and HR occ bumps up to the 120s and is typically in the lower 100s PT-Balance Assessment Sitting Balance and Reactions Static Sitting Balance Ability Normal Dynamic Sitting Balance Ability Good Standing Balance and Reactions Static Standing Balance Ability Good Dynamic Standing Balance Ability Fair Device Used Holds bed and chair M5 PT-IP Objective Assessments Start: 04/19/24 09:19 Freq: NEEDED Status: Active Protocol: Document 04/19/24 11:36 MB (Rec: 04/19/24 12:02 [id number]) Orientation Orientation/Cognition Level of Alertness Alert Orientation Name,Birthday,Situation Language Function Ability No Deficits Noted Safety Awareness Understands Safety Issues Memory Description No Deficits Noted Gross Range of Motion Upper Extremity ROM Assessment Within Functional Limits Impairments Functionally assessed only and WFLs Lower Extremity ROM Assessment Within Functional Limits Strength Upper Extremity Strength Assessment Within Functional Limits Lower Extremity Strength Assessment Within Functional Limits Coordination Assessment Assessment Coordination Comments NT Sensation Assessment Comments Sensation Comments NT Muscle Tone Muscle Tone WNL Yes M6 PT-IP Treatment Start: 04/19/24 09:19 Freq: NEEDED Status: Active Protocol: Document 04/19/24 11:36 MB (Rec: 04/19/24 12:02 MB [id number]) Physical Therapy Treatment Education Education Provided Safety M7 PT-IP Assessment and Plan Start: 04/19/24 09:19 Freq: NEEDED Status: Active Protocol: Document 04/19/24 11:36 MB (Rec: 04/19/24 12:02 [id number]) PT Summary Assessment and Plan Potential Rehabilitation Potential Fair Status of Condition at Evaluation Unstable Summary Impairments Balance,Bed Mobility,Transfers ,Gait,Activity Tolerance Progress Towards Goals Slow Progress due to Activity Tolerance Assessment Summary Pt is an 84 y/o female who states that she is usually I at [employer] and does not use AD. She is too acutely sick flu-wize to tolerate much mobility today. She presents with severe DELATORRE and O2 sats dropping and HR increasing on 1.5L O2 with minimal mobility and she requires frequent rest breaks and requests to get back to bed. She will likely mobilize much better when she is feeling better. Recommend up to chair with nsg for meals when appropriate. Goals Bed Mobility Goal Independent Transfer Goal Independent Gait Goal Independent Gait Distance 100 Days to Meet Goals 5 Frequency of Treatment Frequency Of Treatment Once a Day Treatment Plan Physical Therapy Treatment Plan Bed Mobility Training,Transfer Training,Gait Training, Therapeutic Exercise,Balance Retraining,Discharge Planning, Hot or Cold Pack Precautions Other Precautions Decreasing O2 sats and increasing HR on 1.5L with minimal mobility today Recommendations To Nursing Amount of Assist Needed 1 Person Assist Discharge Recommendations PT Discharge Recommendations Home Health Transportation Needs at Discharge Private Vehicle
--- NOTE | 2024-04-19 12:46 | P.PN_ITS ---
Subjective Subjective Date Patient Seen: 04/19/24 Time Patient Seen: 08:45 Interval history: Narrative: 84 year old female with past medical history of COPD non O2 depedent, CHF and HTN presents with shortness of breath and coughing. Of note, the patient was diagnosed with influneza 2 days ago and was prescribed prednisone. The patient didn't get it filled right away and started it today after geting the prescription filled. The patient states that she started to have increasing shortness of breath and wheezing. The patient also has ongoing dry cough. The patient admits to have some mild LEs edema bilaterally but denies any chest pain. The patient denies any fever, chills, nausea, vomiting or diarrhea. In our ER, the patient was hemodynamically stable but was requiring 1-2 L of O2 per NC. The patient was given Solumedrol, nebs and Tamiflu. The patient also given IV Lasix 20mg x 1. CXR shows no acute findings. Subjective: Patient reports feeling persistent shortness of breath and cough, remaining on 1 L of oxygen by nasal cannula with saturations 92%. Exam Vital Signs (past 8 hours): - 04/19/24 05:00 04/19/24 08:00 04/19/24 09:00 Temperature 98.2 F 98.2 F Pulse Rate 113 H 88 Respiratory Rate 18 18 Blood Pressure 163/99 H 154/87 H Pulse Oximetry 94 92 Oxygen Delivery Method Nasal Cannula Oxygen Flow Rate 1 1 04/19/24 09:05 04/19/24 12:00 Temperature 97.9 F Pulse Rate 102 H 107 H Respiratory Rate 20 20 Blood Pressure 160/91 H Pulse Oximetry 98 92 Oxygen Delivery Method Nasal Cannula Oxygen Flow Rate 1.5 1 Oxygen Delivery Method Nasal Cannula Oxygen Flow Rate 1 Narrative Exam Narrative: GENERAL: The patient is awake and alert, with mildly labored breathing at rest. HEENT: Nonicteric sclerae, PERRLA, EOMI. Oropharynx clear. Moist mucous membranes. Conjunctivae appear well perfused. HEART: Regular rate and rhythm without murmurs. LUNGS: Scattered coarse bilateral rhonchi, faint end-expiratory wheeze. ABDOMEN: Soft, positive bowel sounds, nontender. EXTREMITIES: Trace edema. SKIN: No rash, skin lesions. NEUROLOGIC: AxO x 3. Cranial nerves II-XII intact without motor/sensory deficit. Objective Imaging Chest x-ray: Radiologist's impression: Hyperexpanded lungs, without an acute cardiopulmonary process identified. Labs 04/19/24 05:26 04/19/24 05:26 Labs: Laboratory Results - last 24 hr 04/18/24 04/19/24 15:15 05:26 WBC 6.1 6.4 RBC 4.12 4.55 Hgb 12.5 13.9 Hct 37.1 40.5 MCV 90.2 89.0 MCH 30.4 30.5 MCHC 33.7 34.2 RDW 13.5 13.4 Plt Count 293 366 Neut % (Auto) 71.7 73.4 Lymph % (Auto) 16.4 L 17.2 L [place] % (Auto) 11.6 9.4 Eos % (Auto) 0.1 L 0.0 L Baso % (Auto) 0.2 0.0 Neut # (Auto) 4400 4700 Lymph # (Auto) 1000 L 1100 [place] # (Auto) 700 600 Eos # (Auto) 0 0 Baso # (Auto) 0 0 Sodium 129 L 131 L Potassium 5.2 H 4.5 Chloride 95 L 94 L Carbon Dioxide 23 28 BUN 12 18 H Creatinine 0.54 0.63 Estimated GFR > 60 > 60 BUN/Creatinine Ratio 22.2 H 28.6 H Glucose 109 128 H Calcium 9.4 9.8 Total Bilirubin 0.5 0.5 AST 61 H 58 H ALT 45 H 54 H Alkaline Phosphatase 100 105 Total Creatine Kinase 222 H Troponin I 0.016 NT-Pro-B Natriuret Pep 4540 H Total Protein 7.3 7.7 Albumin 4.4 4.5 Globulin 2.9 3.2 Albumin/Globulin Ratio 1.5 1.4 Lipase 236 [facility] Medical History Benign essential HTN COPD (chronic obstructive pulmonary disease) Macular degeneration Tinnitus Hearing loss Surgical History Anesthesia History of surgery on wrist (~2017) Family History Father History of emphysema Mother Alzheimer's disease Brother No problems noted. Social History Smoking Status: Former smoker Tobacco: How many years used: 30 alcohol intake: current substance use type: does not use Assessment & Plan Assessment & Plan narrative: 1. COPD exacerbation. Admit the patient to medical telemetry as inpatient. Continue IV Solumedrol ,nebs and O2. Treat underlying infection. 2. Influenza pneumonia. Continue Tamiflu. 3. Acute respiratory failure with hypoxemia. Currently on 1-2L of O2 per NC. Likely from above. Treat as above and wean down O2 as able. 4. Possible mild acute on chronic heart failure. Strict I/Os daily weight and continue IV lasix 40mg daily. 5. HTN. Monitor BP and treat accordingly. 6. DVT PPx hep SQ 7. Code status DNR/DNI Disposition home in 2 days [facility] Charge codes Subsequent inpatient/observation care: 65514
[2024-04-19] MEDS: ACETAMINOPHEN 325 MG TABLET 650 MG PO (21:55)
[2024-04-20] VITALS (9 sets, daily range): BP systolic 134–169; BP diastolic 71–93; PULSE 79–110; RESP 12–24; TEMP 35.9–36.8; O2SAT 90–98
[2024-04-20] MEDS: methylPREDNISolone 125 MG/2 ML VIAL 60 MG IV ×2 (05:53→12:20)
[2024-04-20] MEDS: BUDESONIDE 0.5 MG/2 ML NEB INH ×2 (08:17→18:43)
[2024-04-20] MEDS: ALBUTEROL/IPRATROPIUM 3 ML AMPUL INH ×3 (08:18→18:43)
--- NOTE | 2024-04-20 08:34 | PM.PN.1 ---
Subjective Subjective Date Patient Seen: 04/20/24 Interval history: She is seen in her room to follow-up her influenza illness. The CBC is normal. The sodium is 131 with a potassium of 4.5 and a creatinine of 0.63. The AST is 58 and the ALT is 54. The BNP is 4540. She is anticipating going to [facility], where she would normally lives at the assisted living facility tomorrow. She is feeling better but still quite weak. She did not receive an influenza vaccination this year. Exam Vital Signs (past 8 hours): - 04/20/24 04:00 Temperature 98.0 F Pulse Rate 79 Respiratory Rate 16 Blood Pressure 143/78 H Pulse Oximetry 94 Oxygen Flow Rate 1 Fraction of Inspired Oxygen 24 SaO2/FiO2 Ratio 387 Oxygen Delivery Method Nasal Cannula Oxygen Flow Rate 1 Narrative Exam Narrative: Hard of hearing. Alert and oriented x3. No anxiety or distress. Heart is regular rate and rhythm without murmur Lungs are clear to auscultation bilaterally Extremities have no ankle edema. Objective Labs 04/19/24 05:26 04/19/24 05:26 [facility] Medical History Benign essential HTN COPD (chronic obstructive pulmonary disease) Macular degeneration Tinnitus Hearing loss Surgical History Anesthesia History of surgery on wrist (~2017) Family History Father History of emphysema Mother Alzheimer's disease Brother No problems noted. Social History Smoking Status: Former smoker Tobacco: How many years used: 30 alcohol intake: current substance use type: does not use Assessment & Plan Assessment & Plan narrative: 1. COPD exacerbation. Change to PO Prednisone, continue nebs and O2. Treat underlying infection. 2. Influenza pneumonia. Continue Tamiflu. 3. Acute respiratory failure with hypoxemia. Currently on 1-2L of O2 per NC. Likely from above. Treat as above and wean down O2 as able. 4. Possible mild acute on chronic heart failure. Strict I/Os daily weight and continue IV lasix 40mg daily. 5. HTN. Monitor BP and treat accordingly. 6. DVT PPx hep SQ 7. Code status DNR/DNI Disposition home in 1 more day to [facility]. Time-Based Coding :: [TOTAL MINUTES] spent with patient and on the chart (including review of chart, obtaining history, exam, reviewing outside data, placing orders, documenting exam and treatment plan, and counseling patient) on [DATE].
[2024-04-20] MEDS: ACETAMINOPHEN 325 MG TABLET 650 MG PO ×3 (09:48→22:56)
[2024-04-20] MEDS: FUROSEMIDE 40 MG/4 ML VIAL IV (09:48)
[2024-04-20] MEDS: HEPARIN 5,000 UNIT/ML VIAL 5000 UNIT SUBCUT ×2 (09:48→20:43)
[2024-04-20] MEDS: OSELTAMIVIR 75 MG CAPSULE PO ×2 (09:49→20:43)
[2024-04-20] MEDS: SODIUM CHLORIDE 0.9% FLUSH 10 ML IV ×2 (09:49→20:44)
--- NOTE | 2024-04-20 12:43 | CM.DANOTE ---
Patient is an 84 yo female who was admitted on 04/18/24 for Influenza A. Pt has MCR and BC[employer] OUT [employer] for insurance and her PCP is Dr. Anoop Partida. EMR was reviewed. Per MD, pt still with crackles and SOB and weakness and on 1LO2 and not yet stable for discharge but possibly tomorrow Tues. Per PT, 1PA and recommending home with HH. SW met bedside with pt and explained role and pt still with NC O2 and wheezing/cough but confirms she lives at [facility] alone and is active and independent at baseline and does not use DME for ambulation and does not drive but relies on facility van or friends/family. Pt's DPOA is currently her Dtr Bri who lives in [place]. Pt preference is home to [facility] at d/ and SW inquired about HH and discussed services and frequency and pt states she would like to think about it and see how she is feeling tomorrow before any HH referrals made. Plan: SW to follow for further PT and then to follow up with pt to r/o any HH needs at d/c back to [facility]. HARVEY Merino Discharge Planning/Care Management CM Discharge Assessment Start: 04/20/24 12:18 Freq: Status: Active Protocol: Document 04/20/24 12:18 BF (Rec: 04/20/24 12:20 BF [id number]) Discharge Planning Assessment Assigned Vegetable Cutter HARVEY Ruiz DPOA/Assigned Designee Name Jacqueline Gregory Contact Information [phone] Advance Directives? No Advance Directives on File No History Provided By Patient,Medical Record Has Patient been admitted in last 30 No days? Prior Living Arrangements Assisted Facility Type of transporation used prior to Relies on Others admit Facility Name Admitted From: [facility] Willing to Return to Facility? Yes Independent with ADL's Yes Is patient alert and oriented? Yes Caregiver for Another No DME Already Rented / Owned Cane Patient/Family Preference Home with Home Health Barriers to Discharge No Discharge Plan Home Community Services Physical Therapy,Home Health Nurse Transportation Arrangement friend Referrals Initiated Home Health Additional Comment Pending pt's progress with PT/ OT Whiteboard Updated in Patient Room with Yes name and ext. # of Vegetable Cutter Review Status In Process Please Provide Date Initial DC 04/20/24 Assessment Was Performed Next Review Type Continued Stay Review
--- NOTE | 2024-04-20 15:21 | OT.IP.EVAL ---
Current Diagnoses Chronic obstructive pulmonary disease, unspecified (04/18/24) Past Medical History (Last Reviewed 04/18/24 @ 15:42 by Adelaida Hand DO) Benign essential HTN COPD (chronic obstructive pulmonary disease) Hearing loss Macular degeneration Tinnitus Surgical History (Last Reviewed 04/18/24 @ 15:42 by Adelaida Hand DO) Anesthesia History of surgery on wrist (~2017) Occupational Therapy Inpatient Evaluation/Re-Eval M1 PT/OT-IP Prior Functional Status Start: 04/19/24 09:19 Freq: NEEDED Status: Active Protocol: Document 04/20/24 16:01 CGR (Rec: 04/20/24 16:13 CGR [id number]) Medical Review Prior Functional Status Medical History Reviewed Yes Diet/Fluid Consistency Regular Communication WNLs, dyspneic and has to catch her breath often Mobility and Gait I at [facility] Activities of Daily Living and IADL's Ind for all ADLs and IADLs Social History Living Arrangements Long-Term Facility Number of Floors (Floors) One Floor Number of Stairs To Enter/Railing? No steps, does not drive Home Environment Standard Height Toilet,Walk in Shower,Built-In Shower Seat Home Equipment Hand Held Shower,Grab Bars Near Toilet,Grab Bars In Shower Employment Status Retired M2 OT-IP Current Condition Start: 04/20/24 16:00 Freq: Status: Active Protocol: Document 04/20/24 16:01 CGR (Rec: 04/20/24 16:13 CGR [id number]) Occupational Therapy Current Condition Current Condition Evaluation Date 04/20/24 Treatment Diagnosis Flu, COPD exacerbation, SOB Diagnosis Onset Date 04/18/24 M3 OT- IP Subjective and Pain Start: 04/20/24 16:00 Freq: Status: Active Protocol: Document 04/20/24 16:01 CGR (Rec: 04/20/24 16:13 CGR [id number]) OT- Subjective Occupational Therapy Visit Type Type Initial Evaluation Visit Start Time 15:07 Visit Stop Time 15:21 Notes Partial co-treat with P.T. OT Pain Assessment Pain When Pain Assessed At Rest Pain Present Pain Present Denied Pain M4 OT- IP ADL's Start: 04/20/24 16:00 Freq: Status: Active Protocol: Document 04/20/24 16:01 CGR (Rec: 04/20/24 16:13 CGR [id number]) OT [id number] Comments OT Self-Feeding Comments not meal time OT ADL-Grooming General Evaluation Grooming Ability Independent Areas Needing Assistance Retrieving/Set-up of Grooming Items,Face Washing Comments OT Grooming Comments standing at sink OT ADL-Oral Care General Eval Oral Care Ability Independent Areas of Assistance Brushing Teeth,Retrieving/Set- Up of Items Comments Oral Care Comments standing at sink. Pt was very grateful for brushing her teeth. OT ADL-Dressing General Eval Lower Body Dressing Ability Independent Areas Needing Assistance Socks Comments OT Dressing Comments Pt donned socks seated in bed. OT ADL-Toileting Comments OT Toileting Comments not performed OT ADL-Bathing Comments OT Bathing Comments not performed M5 OT- IP IADL's Start: 04/20/24 16:00 Freq: Status: Active Protocol: Document 04/20/24 16:01 CGR (Rec: 04/20/24 16:13 CGR [id number]) OT-Instrumental Activities of Daily Living Deficits IADL Deficits Identified No Deficits Home Safety Awareness Awareness of Need for Assistance at Home Good Awareness Ability to Problem Solve Emergency Able to Problem Solve Situations Medication Management Medication Management No Deficits Identified Money Management Money Management No Deficits Identified Meal Preparation Meal Preparation No Deficits Identified Account Review Specialist Account Review Specialist No Deficits Identified Driving Driving Comments Pt states she does not drive. M6 OT- IP Functional Cognition Start: 04/20/24 16:00 Freq: Status: Active Protocol: Document 04/20/24 16:01 CGR (Rec: 04/20/24 16:13 CGR [id number]) Cognitive Factors Limiting Selfcare Function Cognitive Ability Level of Alertness Alert Patient Orientation Name,Age,Birthday,Month,Date, Year,Day of Week,Place, Situation Attention Span Ability Capable of Focused Attention, Capable of Sustained Attention Ability to Follow Commands Able to Follow Multi-Step Commands Cognitive Comments Cognitive Assessment Comments Pt is [place] but fully oriented OT- Vision and Hearing OT- Hearing Assessment OT- Hearing Assessment Hearing Impaired,Use of Hearing Aids OT- Vision Assessment Vision History Macular Degeneration Visual Acuity Glasses All The Time Visual Attentiveness WFL Occular Pursuits WFL Vision Assessment Comments Pt wears bifocals M7 OT- IP Mobility and Balance Start: 04/20/24 16:00 Freq: Status: Active Protocol: Document 04/20/24 16:01 CGR (Rec: 04/20/24 16:13 CGR [id number]) OT- Bed Mobility Assessment Supine to Sit Supine to Sit Assist Independent,Head of Bed Elevated Scooting Scooting to Edge of Bed Independent OT-Transfer Assessment Sit to and From Stand Sit to and from Stand Independent,Standby Assistance Transfers Transfer Ability Independent,Standby Assistance Technique Transfer Destination Bed,Chair Transfer Technique Stand Step Pivot Devices Transfer Assistive Devices Gait Belt Comments Mobility Comments Pt ambualted from the bed to the chair then to the sink and returned to the chair. OT- Gait Assessment Gait Gait Assistance Required: Independent,Standby Assistance Assistive Devices Assistive Device Gait Belt Comments Gait Ability Comments Mobility in the room. OT- Balance Assessment Sitting Balance and Reactions Static Sitting Balance Ability Normal Dynamic Sitting Balance Ability Normal M8 OT- IP Objective Assessments Start: 04/20/24 16:00 Freq: Status: Active Protocol: Document 04/20/24 16:01 CGR (Rec: 04/20/24 16:13 R [id number]) OT Gross Range of Motion Upper Extremity Range of Motion Assessment Within Functional Limits OT Strength Upper Extremity Strength Assessment Within Functional Limits Comments Strength Comments grossly 4+/5 OT- Coordination Assessment Upper Extremity Finger to Nose Test Within Functional Limits Finger Tapping Test Within Functional Limits OT-Muscle Tone Assessment Muscle Tone WNL Yes OT Sensation Assessment Edema Edema Absent M9 OT- IP Assessment and Plan Start: 04/20/24 16:00 Freq: Status: Active Protocol: Document 04/20/24 16:01 CGR (Rec: 04/20/24 16:13 CGR [id number]) OT Summary Assessment and Plan Potential Rehabilitation Potential Excellent Analytic Complexity at Evaluation Low Summary OT Impairments Balance,Functional Mobility, Activity Tolerance Progress Towards Goals Goals Met Assessment Summary Pt presents as a low complexity evaluation s/p admit for the flu and COPD exacerbation. Pt is performing at her baseline of IND for ADLs with lower activity tolerance. P.T. will be addressing mobility and activity tolerance so will defer to P.T. No further OT needs. Frequency of Treatment Frequency Of Treatment Discharge Discharge Recommendations Other Discharge Recommendations Defer to P.T.
--- NOTE | 2024-04-20 15:50 | PT.IPTN ---
Current Diagnoses Chronic obstructive pulmonary disease, unspecified (04/18/24) Physical Therapy Treatment Note M2 PT-IP Current Condition Start: 04/19/24 09:19 Freq: NEEDED Status: Active Protocol: Document 04/20/24 15:18 SP (Rec: 04/20/24 16:19 SP [id number]) Physical Therapy Current Condition Current Condition Evaluation Date 04/19/24 Treatment Diagnosis SOB and influenza A M3 PT-IP Subjective Start: 04/19/24 09:19 Freq: NEEDED Status: Active Protocol: Document 04/20/24 15:18 SP (Rec: 04/20/24 16:19 SP [id number]) Subjective Physical Therapy Visit Type Type Treatment Note Visit Start Time 15:18 Visit Stop Time 15:50 Number of DYNAMOMETER TESTER Visits 1 Physical Therapy Visit Comments Patient Comments Pt agreeable to working DYNAMOMETER TESTER. Therapy Pain Assessment Pain Present Pain Present Denied Pain Location Ribs Scale Used soreness in ribs and abdoment from coughing M4 PT-IP Mobility and Gait Start: 04/19/24 09:19 Freq: NEEDED Status: Active Protocol: Document 04/20/24 15:18 SP (Rec: 04/20/24 16:28 SP [id number]) PT-Transfer Assessment Sit to and From Stand Sit to and from Stand Standby Assistance Equipment Transfer Assistive Device None,Gait Belt,Front Wheeled Walker,4 Wheeled Walker Transfers Transfer Destination Chair Transfer Technique gait around room /c no AD, FWW , 4WW, DYNAMOMETER TESTER assisted O2 line Transfer Ability Level of Assist Standby Assistance Comments Mobility Comments Pt compeleted 5xSTS use BUEs on chair arms support. Gait around room no AD, little sways reports tiring, stop stand rest breath. Trialed 2nd lap and 3rd laps using fWW then 4WW for education performance and education breath and slower energy conservation and reports does help not so tiring. Continue destat with mobility 87-89% on 1L, at rest improves to 90-91 % on 1L, seated rest breath and use breathing pickle apparatus improves to 93% on 1L. Recommending continue skilled PT for progressing ed breath and energy conservation and use AD. Friend at [facility] has 1 can borrow. PT-Balance Assessment Sitting Balance and Reactions Static Sitting Balance Ability Normal Dynamic Sitting Balance Ability Normal Standing Balance and Reactions Static Standing Balance Ability Good Dynamic Standing Balance Ability Fair Device Used no AD, tandem LOB Functional Assessments Functional Tests 5 Times Sit to Stand 5 reps not timed Other Functional Tests Performed see ex: comments NBOS, semitandem, tandem. M5 PT-IP Objective Assessments Start: 04/19/24 09:19 Freq: NEEDED Status: Active Protocol: Document 04/19/24 11:36 MB (Rec: 04/19/24 12:02 MB [id number]) Orientation Orientation/Cognition Level of Alertness Alert Orientation Name,Birthday,Situation Language Function Ability No Deficits Noted Safety Awareness Understands Safety Issues Memory Description No Deficits Noted Gross Range of Motion Upper Extremity ROM Assessment Within Functional Limits Impairments Functionally assessed only and WFLs Lower Extremity ROM Assessment Within Functional Limits Strength Upper Extremity Strength Assessment Within Functional Limits Lower Extremity Strength Assessment Within Functional Limits Coordination Assessment Assessment Coordination Comments NT Sensation Assessment Comments Sensation Comments NT Muscle Tone Muscle Tone WNL Yes M6 PT-IP Treatment Start: 04/19/24 09:19 Freq: NEEDED Status: Active Protocol: Document 04/20/24 15:18 SP (Rec: 04/20/24 16:19 SP [id number]) Physical Therapy Treatment Education Education Provided Safety Other Treatments Other Treatment Performed Instructed 5 reps of STS from chair, use arm rests support for functional strengthening. NBOS: Head turns & EC 30 sec stable, Semitandem: head turns , EC 30 sec each LE position Tandem: unable complete without UE support. M7 PT-IP Assessment and Plan Start: 04/19/24 09:19 Freq: NEEDED Status: Active Protocol: Document 04/20/24 15:18 SP (Rec: 04/20/24 16:19 SP [id number]) PT Summary Assessment and Plan Potential Rehabilitation Potential Fair Status of Condition at Evaluation Unstable Summary Impairments Balance,Bed Mobility,Transfers ,Gait,Activity Tolerance Progress Towards Goals Slow Progress due to Activity Tolerance Assessment Summary Pt eager to mobilize gait around room 3 laps, approx 90 ft but tires quickly need stand/seated rest between lengths and c/o SOB SaO2 87-88 % on 1 L HR 132bpm, education for slower pacing, diaphramatic breath and provided use of FWW for energy conservation support, improves to 93% on1L HR 118 bpm. Riterated use of pickle breathing apparatus Respiratory Therapy supplied for support. Continued recommend up to chair with nsg for meals when appropriate. Pt would benefit from continued skilled PT for standing strengthening and balance and progress gait distance, continue education use of FWW/4WW for support energy conservation. Goals Bed Mobility Goal Independent Transfer Goal Independent Gait Goal Independent Gait Distance 100 Days to Meet Goals 5 Frequency of Treatment Frequency Of Treatment Once a Day Treatment Plan Physical Therapy Treatment Plan Bed Mobility Training,Transfer Training,Gait Training, Therapeutic Exercise,Balance Retraining,Discharge Planning, Hot or Cold Pack Other Recommendations and Next Treatment STS, standing strength ex, Focus further distance gait LRAD, ed breath & energy conservation. Precautions Other Precautions Decreasing O2 sats and increasing HR on 1.5L with minimal mobility today Recommendations To Nursing Amount of Assist Needed Standby Assistance Discharge Recommendations PT Discharge Recommendations Home Health Other Discharge Recommendations FWW/4WW can borrow from neighbor for longer distances in facility energy conservation. Transportation Needs at Discharge Private Vehicle
[2024-04-20] MEDS: predniSONE 20 MG TABLET 30 MG PO (16:41)
[2024-04-20] MEDS: BENZONATATE 100 MG CAPSULE PO (16:41)
[2024-04-21 02:21] VITALS: BP 160/83; PULSE 85; RESP 19; TEMP 36.9; O2SAT 94
[2024-04-21] MEDS: BENZONATATE 100 MG CAPSULE PO (05:09)
[2024-04-21 06:00] VITALS: BP 144/89; PULSE 90; RESP 17; TEMP 37; O2SAT 93
--- NOTE | 2024-04-21 07:59 | P.DS_ITS ---
History of Present Illness History of Present Illness Date Patient Seen: 04/21/24 Chief complaint: flu Narrative: 84 year old female with past medical history of COPD non O2 depedent, CHF and HTN presents with shortness of breath and coughing. Of note, the patient was diagnosed with influneza 2 days ago and was prescribed prednisone. The patient didn't get it filled right away and started it today after geting the prescription filled. The patient states that she started to have increasing shortness of breath and wheezing. The patient also has ongoing dry cough. The patient admits to have some mild LEs edema bilaterally but denies any chest pain. The patient denies any fever, chills, nausea, vomiting or diarrhea. In our ER, the patient was hemodynamically stable but was requiring 1-2 L of O2 per NC. The patient was given Solumedrol, nebs and Tamiflu. The patient also given IV Lasix 20mg x 1. CXR shows no acute findings. Discharge Providers Provider Date of admission: 04/18/24 19:44 Discharge Date: 04/21/24 Primary care physician: Anoop Partida DO Consults: 04/18/24 20:04 Consult to Occupational Therapy Evaluate & Treat Comment: Physician Instructions: Evaluate and treat Consult to Physical Therapy Evaluate & Treat Comment: Physician Instructions: Evaluate and Treat Discharge provider: Carole Klein MD Summary Hospital Course Discharge Diagnosis: 1. COPD exacerbation. At discharge on PO Prednisone, Albuterol and O2. 2. Influenza pneumonia. Complete 5 day course of Tamiflu. 3. Acute respiratory failure with hypoxemia. Currently on 1-2L of O2 per NC. 86% on room air at discharge. Arranged 1.5 L NC for home use. 4. Acute on chronic heart failure. Resume home Lasix at discharge. 5. HTN. Losartan Code status DNR/DNI Hospital Course: She is reporting that her strength has improved close to her baseline. She did have a cough exacerbation last night and this morning. Her sputum culture is growing ?mold. ? Until that is identified she will be covered for the next 10 days with fluconazole. This will need to be followed up by her PCP at next visit. She will be on a prednisone 30 mg daily course and complete 5 days of Tamiflu. Home oxygen has been arranged. Status at Discharge Cognitive/behavioral status at discharge: at baseline, oriented Functional status at discharge: independent ambulation Overall status at discharge: patient is progressing back to baseline Exam Vital Signs (past 8 hours): - 04/21/24 02:21 04/21/24 06:00 Temperature 98.4 F 98.6 F Pulse Rate 85 90 Respiratory Rate 19 17 Blood Pressure 160/83 H 144/89 H Pulse Oximetry 94 93 Oxygen Flow Rate 1 1 Fraction of Inspired Oxygen 24 SaO2/FiO2 Ratio 387 Oxygen Delivery Method Nasal Cannula Oxygen Flow Rate 1 Narrative Exam Narrative: Alert, oriented x3, coughing, no apparent distress. Heart is regular rate and rhythm without murmur Lungs are clear to auscultation with diminished breath sounds bilaterally. Extremities have no ankle edema Objective Labs 04/19/24 05:26 04/19/24 05:26 [facility] Medical History Benign essential HTN COPD (chronic obstructive pulmonary disease) Macular degeneration Tinnitus Hearing loss Surgical History Anesthesia History of surgery on wrist (~2017) Family History Father History of emphysema Mother Alzheimer's disease Brother No problems noted. Social History Smoking Status: Former smoker Tobacco: How many years used: 30 alcohol intake: current substance use type: does not use Discharge Plan Discharge Plan Patient Disposition: Home Provider Discharge Comment: Home oxygen 1.5 L NM Discharge orders & Medications Prescriptions: New furosemide 20 mg tablet 20 mg PO DAILY Qty: 5 0RF prednisone 20 mg Tablet 30 mg PO DAILY Qty: 7 0RF benzonatate 100 mg Capsule 100 mg PO TID PRN (Reason: Cough) Qty: 20 0RF oseltamivir [Tamiflu] 75 mg Capsule 75 mg PO BID Qty: 4 0RF fluconazole 100 mg tablet 100 mg PO DAILY Qty: 10 0RF Continued losartan 50 mg tablet 50 mg PO DAILY albuterol sulfate 2.5 mg /3 mL (0.083 %) solution for nebulization 2.5 mg inhalation Q6H Qty: 75 0RF albuterol sulfate 90 mcg/actuation HFA aerosol inhaler 2 puff inhalation Q6H PRN (Reason: wheezing) fluticasone propion-salmeterol 250-50 mcg/dose blister with device 1 ea INHALATION BID Follow up/Referrals: Anoop Partida DO [Primary Care Provider] - Activity Restrictions/Additional Instructions: *You have been diagnosed with influenza a, CHF, COPD *What to do: At this time you do have influenza a which is likely causing your fever and body aches, you also have increased fluid on you as well. *Continue to take medications as directed Take prednisone as prescribed Take furosemide 20 mg once a day *Follow up with your primary care provider in 2-3 days or call [phone] *Return to ER if you should have increasing shortness of breath body aches not drinking fluids, increased confusion or any new, worsening or concerning symptoms Diet/Activity/Treatments Diet: Regular Visit Report/Discharge Packet Instructions: DI for Influenza -- Adult, Prednisone, Furosemide, Oseltamivir, Benzonatate (By mouth) Stand Alone Forms: Patient Portal/API, Stroke Signs & Symptoms, Patient Portal/API/Survey Discharge Data Primary Care Provider: Anoop Partida
--- NOTE | 2024-04-21 08:20 | PT-IP ANOTE ---
Pt declined working with DIRECTOR OF QUALITY IMPROVEMENT upon arrival early am. I can't right now, I feel to wiped out coughing alot last night. Agreeable to work with physical therapy later. Pt was not seen today.
[2024-04-21 08:48] VITALS: PULSE 92; RESP 20; O2SAT 94
[2024-04-21] MEDS: ALBUTEROL/IPRATROPIUM 3 ML AMPUL INH ×2 (08:48→13:37)
[2024-04-21] MEDS: BUDESONIDE 0.5 MG/2 ML NEB INH (08:48)
[2024-04-21] MEDS: OSELTAMIVIR 75 MG CAPSULE PO (09:30)
[2024-04-21] MEDS: FUROSEMIDE 40 MG/4 ML VIAL IV (09:30)
[2024-04-21] MEDS: ACETAMINOPHEN 325 MG TABLET 650 MG PO (09:30)
[2024-04-21] MEDS: predniSONE 20 MG TABLET 30 MG PO (09:30)
[2024-04-21] MEDS: SODIUM CHLORIDE 0.9% FLUSH 10 ML IV (09:31)
[2024-04-21 09:48] VITALS: TEMP 36.8
[2024-04-21 09:50] VITALS: BP 177/80
--- NOTE | 2024-04-21 13:16 | PT-IP ANOTE ---
Pt refused physical therapy treatment this afternoon upon arrival. I am leaving in 1 hr and don't feel need try anything further with therapy. She restated I can borrow a neighbor's FWW if feel needed. Pt was not seen, will defer further progress with HHPT upon DC.
[2024-04-21 13:37] VITALS: PULSE 89; RESP 20; O2SAT 94
--- NOTE | 2024-04-21 13:40 | CM.DPC ---
DCP Discharge Home Per MD, pt is medically stable to d/c home today once RT assesses for new home O2 and Dtr will provide transport home this afternoon. Per HAND INSPECTOR, pt refused today and still recommending home with FWW and pt confirms she has a friend at [facility] that can loan her FWW at d/c and pt denies any further needs and PT recommending home. Pt confirms that she does not feel HH needed and preference is home soon via Dtr POV. Sara Bui MSW
--- NOTE | 2024-04-21 14:39 | PC.NURSE ---
IV and Telemetry removed. Discussed new medications, worsening symptoms, follow up, home o2, and activity, s/s of stroke. No further questions. wheeled out via w/c by PCT to private vehicle and accompanied by daughter.
== END 2024-04-21 14:16 | disposition home or self-care (01) | DRG 190 ==
LOC: ED 19:39 → AC 04-19 08:52
PROVIDERS: Admitting Provider Internal Medicine; Emergency Provider Emergency Medicine; PCP Family Medicine; Referring Provider Emergency Medicine; Visit Provider Internal Medicine
DX: J44.1 Chronic obstructive pulmonary disease with (acute) exacerbation (principal); J10.01 Influenza due to other identified influenza virus with the same other identified influenza virus pneumonia; J96.01 Acute respiratory failure with hypoxia; I50.9 Heart failure, unspecified; E87.5 Hyperkalemia; I11.0 Hypertensive heart disease with heart failure; Z66 Do not resuscitate; Z87.891 Personal history of nicotine dependence
CPT/HCPCS: 36415; 71046; 80053; 82550; 83690; 83880; 84484; 85025; 87070; 87107; 87205; 93005; 94618; 94640; 94667; 94762; 96374; 96375; 97110; 97116; 97162; 97165; 99284; 99285; J1644; J1940; J2919

== ENCOUNTER 2024-04-23 12:07 | Inpatient (IN) | payer MEDICARE, BC, SELFPAY ==
[2024-04-22 16:48] VITALS: BMI 20.1
[2024-04-23] VITALS (25 sets, daily range): BP systolic 133–168; BP diastolic 62–85; PULSE 72–94; RESP 14–35; TEMP 36.7–37.6; O2SAT 94–98; BMI 19.3
--- NOTE | 2024-04-23 12:21 | DI.RAD.S_ITS ---
PROCEDURE: XR CHEST 1V INDICATIONS: Shortness of breath TECHNIQUE: One view of the chest was acquired. COMPARISON: [facility], CR, XR CHEST 2V, 04/16/2024, 16:13. [facility], CR, XR CHEST 2V, 04/18/2024, 12:50. [facility], CR, XR CHEST 1V, 04/17/2023, 8:27. FINDINGS: Surgical changes and devices: None. Lungs and pleura: Lungs are hyperexpanded. No pleural effusion or pneumothorax. Mediastinum: Normal size of the cardiac silhouette. Aortic atherosclerotic calcifications and tortuosity are again noted. Bones and chest wall: No suspicious bony lesions. Overlying soft tissues appear unremarkable. IMPRESSION: No acute cardiopulmonary abnormality is seen. Approved by: Nathaniel Givens M.D. on 04/23/2024 at 12:46
[2024-04-23] MEDS: ALBUTEROL/IPRATROPIUM 3 ML AMPUL INH (12:29)
--- NOTE | 2024-04-23 12:42 | EKG_ITS ---
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
[2024-04-23 12:45] LABS: Add Manual Diff / Slide Review NO; Basophils Absolute Auto 100 /uL (0-100); Basophils Percent Auto 0.7 % (0-2); Eosinophils Absolute Auto 0 /uL (0-450); Hematocrit 38.7 % (36-46); Hemoglobin 13.2 g/dL (12.0-16.0); Lymphocytes Absolute Auto 800 /uL (1100-4500); Lymphocytes Percent Auto 5.7 % (25-40); Mean Corpuscular HGB Conc 34.2 % (30-36); Mean Corpuscular Hemoglobin 30.2 PG (26-34); Mean Corpuscular Volume 88.3 fL (80-100); Monocytes Absolute Auto 700 /uL (0-900); Monocytes Percent Auto 4.7 % (3-14); Neutrophils Absolute Auto 13100 /uL (1500-7000); Neutrophils Percent Auto 88.9 % (50-75); Platelet Count 511 X10^3/uL (150-400); Red Blood Cell Count 4.39 X10^6/uL (4.0-5.2); Red Cell Distribution Width 12.6 % (11.6-14.8); White Blood Cell Count 14.7 X10^3/uL (4.5-11.0)
[2024-04-23 13:00] LABS: Alanine Aminotransferase 40 IU/L (<35); Albumin 4.1 g/dL (3.5-5.0); Albumin Globulin Ratio 1.4 (1.0-2.8); Alkaline Phosphatase 77 U/L (38-126); Aspartate Aminotransferase 45 IU/L (14-36); BUN Creatinine Ratio 36.6 (6-22); Bilirubin Total 1.1 mg/dL (0.2-1.3); Blood Urea Nitrogen 26 mg/dL (7-17); Calcium 8.4 mg/dL (8.4-10.2); Carbon Dioxide 26 mmol/L (22-32); Estimated Glomerular Filt Rate > 60 mL/min (>60); Globulin 2.9 g/dL (1.7-4.1); Glucose 130 mg/dL (80-110); HEMOLYSIS 40 (0-50); Lactate (Lactic Acid) 1.3 mmol/L (0.7-2.1); Potassium 4.7 mmol/L (3.4-5.1)
[2024-04-23 13:05] LABS: Chloride 74 mmol/L (98-107); Sodium 109 mmol/L (137-145)
[2024-04-23 13:12] LABS: NT-proBNP (BNP-Adult 18+) 5530 pg/mL (<450); Troponin I 0.013 ng/mL (0.01-0.034)
--- NOTE | 2024-04-23 13:19 | DI.US.S_ITS ---
PROCEDURE: US PERIPH VENOUS LOW EXTREM BI INDICATIONS: swelling TECHNIQUE: Real-time imaging, as well as color and pulse Doppler interrogation, were performed of the deep veins of both legs from the inguinal ligament to the popliteal fossa, with documentation of the visualized calf veins. COMPARISON: None. FINDINGS: Right: The common femoral, femoral, popliteal, and the visualized calf veins are normally compressible, and free of intraluminal thrombus. Color and pulse Doppler demonstrate normal phasic intravascular flow. There is normal augmentation response to distal compression maneuver. Left: The common femoral, femoral, popliteal, and the visualized calf veins are normally compressible, and free of intraluminal thrombus. Color and pulse Doppler demonstrate normal phasic intravascular flow. There is normal augmentation response to distal compression maneuver. IMPRESSION: No findings of deep venous thrombosis in either lower extremity. Approved by: Nathaniel Givens M.D. on 04/23/2024 at 14:36
[2024-04-23] MEDS: SODIUM CHLORIDE 3 % 100 ML 600 ML IV (13:35)
[2024-04-23 14:57] LABS: BUN Creatinine Ratio 38.5 (6-22); Blood Urea Nitrogen 25 mg/dL (7-17); Calcium 8.3 mg/dL (8.4-10.2); Carbon Dioxide 26 mmol/L (22-32); Chloride 78 mmol/L (98-107); Estimated Glomerular Filt Rate > 60 mL/min (>60); Glucose 125 mg/dL (80-110); HEMOLYSIS < 15 (0-50); Potassium 4.6 mmol/L (3.4-5.1)
[2024-04-23 15:02] LABS: Sodium 111 mmol/L (137-145)
--- NOTE | 2024-04-23 15:04 | ED_ITS ---
HPI - SOB/Dyspnea General Chief Complaint: Shortness of Breath/Dyspnea Stated Complaint: SOB, swelling in legs and feet, returning pt Time Seen by Provider: 04/23/24 12:37 Source: patient Mode of arrival: Wheelchair History of Present Illness HPI Narrative: Patient is a 84-year-old female history of COPD non O2 dependent, CHF hypertension presenting today with increasing shortness of breath. She was admitted to the hospital April 18 through the with COPD and influenza a She has been home for 2 days. Daughter states that she was doing well the 1st day today she started having some difficulty breathing. She now has lower extremity edema. She says that the edema actually went down. She was discharged home on Tamiflu prednisone and furosemide. She is really not eating very much he was drinking water but not excessively. Related Data Home Medications Medication Instructions Recorded Confirmed albuterol sulfate 90 mcg/actuation 2 puff inhalation Q6H PRN wheezing 10/22/23 04/23/24 aerosol inhaler losartan 50 mg tablet 50 mg PO DAILY 04/16/24 04/23/24 fluticasone 250 mcg-salmeterol 50 1 ea inhalation BID 04/18/24 04/23/24 mcg/dose blistr powdr for inhalation Previous Rx's Medication Instructions Recorded albuterol sulfate 2.5 mg/3 mL 2.5 mg (3 mL) inhalation Q6H #75 mL 04/17/24 (0.083 %) solution for nebulization furosemide 20 mg tablet 20 mg PO DAILY #5 tabs 04/18/24 benzonatate 100 mg capsule 100 mg PO TID PRN Cough #20 caps 04/21/24 fluconazole 100 mg tablet 100 mg PO DAILY #10 tabs 04/21/24 oseltamivir 75 mg capsule (Tamiflu) 75 mg PO BID #4 caps 04/21/24 prednisone 20 mg tablet 30 mg (1.5 x 20 mg) PO DAILY #7 04/21/24 tabs Allergies Allergy/AdvReac Type Severity Reaction Status Date / Time doxycycline Allergy Intermediate TENNITIUS Verified 04/18/24 12:38 Penicillins Allergy Intermediate Rash and Verified 04/18/24 12:38 swelling Shell beans Allergy Intermediate swelling Uncoded 04/18/24 12:38 and blistering around mouth, rash Patient History Medical History Benign essential HTN COPD (chronic obstructive pulmonary disease) Macular degeneration Tinnitus Hearing loss Surgical History Anesthesia History of surgery on wrist (~2017) Family History Father History of emphysema Mother Alzheimer's disease Brother No problems noted. Social History household members: none Smoking Status: Former smoker Tobacco: How many years used: 30 alcohol intake: current substance use type: does not use Smoking Status: Former smoker alcohol intake frequency: a few times a week Exam Initial Vital Signs Initial Vital Signs: Vital Signs Temperature 98.1 F 04/23/24 12:09 Pulse Rate 92 H 04/23/24 12:09 Respiratory Rate 30 H 04/23/24 12:09 Blood Pressure 149/72 H 04/23/24 12:09 Pulse Oximetry 94 04/23/24 12:09 Oxygen Delivery Method Nasal Cannula 04/23/24 12:09 Oxygen Flow Rate 2 04/23/24 12:09 GENERAL: Alert pleasant thin 84-year-old female hard of hearing and in [no acute] distress. HEENT: Head atraumatic,EOMI, pupils reactive, face symmetric, dry mucous membranes CARDIOVASCULAR: Regular rate and rhythm without murmurs, rubs or gallops. RESPIRATORY: Slight wheezing bilaterally, no significant wheezing or conversational dyspnea she did receive an albuterol treatment prior to my evaluation ABDOMEN: Soft, nontender. Normoactive bowel sounds all 4 quadrants. No guarding or rebound. EXTREMITIES: Normal range of motion, no clubbing. Bilateral lower extremity edema calves are nontender Neurovascularly intact NEUROLOGICAL: Alert and oriented x4.Normal gait and speech. Cranial nerves II through XII grossly intact. SKIN: Warm, dry, no laceration, no petechiae, no rashes or lesions. Course Orders Ordered: ED Orders 04/23/24 12:21 XR chest 1V Stat EKG-12 Lead Stat Measure peak expiratory flow ONCE RT Consult Eval and Treat NOW 04/23/24 12:36 Complete Blood Count AUTO DIFF Stat Comprehensive Metabolic Panel Stat Lactate (Lactic Acid) Stat NT-proBNP (BNP-Adult 18+) Stat Prothrombin Time INR Stat Troponin I Stat 04/23/24 13:19 US periph venous low extrem bi Stat 04/23/24 14:30 BMP [Basic Metabolic Panel] Stat Albuterol (Albuterol 2.5 Mg/3 Ml Neb (Adult)) 2.5 mg INH RTQ6HR ILANA Benzonatate (Benzonatate 100 Mg Capsule) 100 mg PO TID PRN PRN Reason: Cough Enoxaparin Sodium (Enoxaparin 30 Mg/0.3 Ml Syringe) 30 mg SUBCUT DAILY ILANA Losartan Potassium (Losartan 50 Mg Tablet) 50 mg PO DAILY ILANA Naloxone HCl (Naloxone 0.4 Mg/Ml Vial) 0.2 mg IV Q2MIN PRN PRN Reason: Opiate Reversal Prednisone (Prednisone 20 Mg Tablet) 30 mg PO DAILY ILANA Discontinued Medications Albuterol (Albuterol Hfa Mdi 60 Puff/8 Gm Inhaler) 2 puff INH Q6H PRN PRN Reason: wheezing Albuterol/Ipratropium (Albuterol/Ipratropium 3 Ml Ampul) 3 ml INH NOW ONE Stop: 04/23/24 12:26 Last Admin: 04/23/24 12:29 Dose: 3 ml Documented By: PONCHO Sodium Chloride (Hypertonic Saline 3%) 100 mls @ 600 mls/hr IV NOW ONE Stop: 04/23/24 13:27 Last Infusion: 04/23/24 13:50 Dose: Infused Documented By: Admin: 04/23/24 13:35 Dose: 600 mls/hr Documented By: ANNE Sodium Chloride (Normal Saline 0.9%) 1,000 mls @ 100 mls/hr IV CONT ILANA Last Admin: 04/23/24 17:09 Dose: Not Given Documented By: CORDELL Sodium Chloride (Hypertonic Saline 3%) 100 mls @ 150 mls/hr IV NOW ONE Stop: 04/23/24 17:29 Last Admin: 04/23/24 18:00 Dose: Not Given Documented By: CORDELL Sodium Chloride (Hypertonic Saline 3%) 50 mls @ 150 mls/hr IV NOW ONE Stop: 04/23/24 18:09 Last Infusion: 04/23/24 17:46 Dose: Infused Documented By: Admin: 04/23/24 17:26 Dose: 150 mls/hr Documented By: CORDELL Vital Signs Vital signs: Vital Signs - 8 hr 04/23/24 12:09 04/23/24 12:30 04/23/24 12:51 Temperature 98.1 F Pulse Rate 92 H 90 83 Respiratory Rate 30 H 24 33 H Blood Pressure 149/72 H Pulse Oximetry 94 98 97 Oxygen Delivery Method Nasal Cannula Nasal Cannula Oxygen Flow Rate 2 2 Fraction of Inspired Oxygen 28 04/23/24 13:00 04/23/24 13:30 04/23/24 13:50 Temperature Pulse Rate 85 85 86 Respiratory Rate 33 H 29 H 24 Blood Pressure Pulse Oximetry 97 96 94 Oxygen Delivery Method Nasal Cannula Oxygen Flow Rate 2 Fraction of Inspired Oxygen 04/23/24 13:50 04/23/24 14:00 04/23/24 14:00 Temperature Pulse Rate 84 Respiratory Rate 24 Blood Pressure 155/78 H 147/85 H Pulse Oximetry 96 Oxygen Delivery Method Oxygen Flow Rate Fraction of Inspired Oxygen 04/23/24 14:30 04/23/24 14:30 04/23/24 15:00 Temperature Pulse Rate 88 82 Respiratory Rate 24 Blood Pressure 146/71 H Pulse Oximetry 96 95 Oxygen Delivery Method Nasal Cannula Oxygen Flow Rate 2 Fraction of Inspired Oxygen 04/23/24 15:00 Temperature Pulse Rate Respiratory Rate Blood Pressure 133/73 Pulse Oximetry Oxygen Delivery Method Oxygen Flow Rate Fraction of Inspired Oxygen MDM - SOB/Dyspnea Lab Data 04/23/24 12:36 04/23/24 18:33 Labs: Lab Results 04/23/24 04/23/24 Range/Units 12:36 14:30 WBC 14.7 H (4.5-11.0) X10^3/uL RBC 4.39 (4.0-5.2) X10^6/uL Hgb 13.2 (12.0-16.0) g/dL Hct 38.7 (36-46) % MCV 88.3 (80-100) fL MCH 30.2 (26-34) PG MCHC 34.2 (30-36) % RDW 12.6 (11.6-14.8) % Plt Count 511 H (150-400) X10^3/uL Neut % (Auto) 88.9 H (50-75) % Lymph % (Auto) 5.7 L (25-40) % [place] % (Auto) 4.7 (3-14) % Eos % (Auto) 0.0 L (2-4) % Baso % (Auto) 0.7 (0-2) % Neut # (Auto) 85820 H (1894-2660) /uL Lymph # (Auto) 800 L (9682-0708) /uL [place] # (Auto) 700 (0-900) /uL Eos # (Auto) 0 (0-450) /uL Baso # (Auto) 100 (0-100) /uL PT 11.0 (9.4-12.5) SECONDS INR 1.0 (0.9-1.3) Sodium 109 L* D 111 L* (137-145) mmol/L Potassium 4.7 4.6 (3.4-5.1) mmol/L Chloride 74 L* 78 L (98-107) mmol/L Carbon Dioxide 26 26 (22-32) mmol/L BUN 26 H 25 H (7-17) mg/dL Creatinine 0.71 0.65 (0.52-1.04) mg/dL Estimated GFR > 60 > 60 (>60) mL/min BUN/Creatinine Ratio 36.6 H 38.5 H (6-22) Glucose 130 H 125 H (80-110) mg/dL Lactate 1.3 (0.7-2.1) mmol/L Calcium 8.4 8.3 L (8.4-10.2) mg/dL Total Bilirubin 1.1 (0.2-1.3) mg/dL AST 45 H (14-36) IU/L ALT 40 H (<35) IU/L Alkaline Phosphatase 77 (38-126) U/L Troponin I 0.013 (0.01-0.034) ng/mL NT-Pro-B Natriuret Pep 5530 H (<450) pg/mL Total Protein 7.0 (6.3-8.2) g/dL Albumin 4.1 (3.5-5.0) g/dL Globulin 2.9 (1.7-4.1) g/dL Albumin/Globulin Ratio 1.4 (1.0-2.8) Imaging Data Chest x-ray: Radiologist's Impression: PROCEDURE: XR CHEST 1V INDICATIONS: Shortness of breath TECHNIQUE: One view of the chest was acquired. COMPARISON: [facility], CR, XR CHEST 2V, 04/16/2024, 16:13. [facility], CR, XR CHEST 2V, 04/18/2024, 12:50. [facility], CR, XR CHEST 1V, 04/17/2023, 8:27. FINDINGS: Surgical changes and devices: None. Lungs and pleura: Lungs are hyperexpanded. No pleural effusion or pneumothorax. Mediastinum: Normal size of the cardiac silhouette. Aortic atherosclerotic calcifications and tortuosity are again noted. Bones and chest wall: No suspicious bony lesions. Overlying soft tissues appear unremarkable. IMPRESSION: No acute cardiopulmonary abnormality is seen. Approved by: Nathaniel Givens M.D. on 04/23/2024 at 12:46 US - DVT: Radiologist's Impression: PROCEDURE: US PERIPH VENOUS LOW EXTREM BI INDICATIONS: swelling TECHNIQUE: Real-time imaging, as well as color and pulse Doppler interrogation, were performed of the deep veins of both legs from the inguinal ligament to the popliteal fossa, with documentation of the visualized calf veins. COMPARISON: None. FINDINGS: Right: The common femoral, femoral, popliteal, and the visualized calf veins are normally compressible, and free of intraluminal thrombus. Color and pulse Doppler demonstrate normal phasic intravascular flow. There is normal augmentation response to distal compression maneuver. Left: The common femoral, femoral, popliteal, and the visualized calf veins are normally compressible, and free of intraluminal thrombus. Color and pulse Doppler demonstrate normal phasic intravascular flow. There is normal augmentation response to distal compression maneuver. IMPRESSION: No findings of deep venous thrombosis in either lower extremity. Approved by: Nathaniel Givens M.D. on 04/23/2024 at 14:36 ECG Data Attestation: I personally reviewed and interpreted this ECG as follows: Interpretation: Sinus rhythm rate 87 MD interval 148 QRS [address] changes similar to prior MDM Narrative Medical decision making narrative: MDM CC: Shortness of breath Complicating co-morbidities: COPD not oxygen dependent Medical records reviewed: Admission records reviewed Differential considered: COPD CHF pulmonary embolism Exam documented above, pertinent findings include: Alert thin 84-year-old female bilateral lower extremity edema breath sounds are clear Lab Test results independently reviewed as above. Pertinent findings: Sodium 109 previously 131, this did improve to 111 after hypertonic saline 3% 100 mL bolus Potassium 4.46 chloride 78 carbon dioxide 26 BUN 23 creatinine 0.6 glucose 125 Independently reviewed EKG as above Sinus rhythm Imaging studies independently reviewed: DVT study negative Chest x-ray no acute process Consultations: Dr. Klein accepts patient Treatments: 3% 100 mL bolus Re-evaluations: Patient remains awake alert oriented appropriate. Breathing has improved after albuterol she does continue to have some mild lower extremity edema Discussion: Patient 84-year-old female who has history of COPD not on oxygen congestive heart failure presents today with increasing shortness of breath. She has been drinking water but has had overall poor p.o. intake over last 2 days. She suddenly had increased lower extremity edema today. Breathing improved pretty quickly with albuterol but she is still requiring 1-2 L of oxygen. She was found to be quite hyponatremic with a sodium of 109. I think this is due to poor p.o. intake. It is quite acute over the last 2 days Pulmonary embolism was considered however breathing improved rather quickly with albuterol and she has a negative bilateral lower extremity Doppler. Discharge Plan Departure Patient Disposition: Admitted As Inpatient Clinical Impression: Acute hyponatremia Admit Date/Time: 04/23/24 15:22 Admit Provider: Carole Klein
--- NOTE | 2024-04-23 16:17 | PC.NURSE ---
PT reports that her SOB has decreased since arriving. Bilateral lung sounds are more clear with fine crackles. She continues to deny pain. Daughter enrique remains at bedside.
--- NOTE | 2024-04-23 17:21 | P.HP_ITS ---
History of Present Illness History of Present Illness Chief complaint: SOB, swelling in legs and feet, returning pt Narrative: This is an 84-year-old female with COPD, hypertension, macular degeneration, hearing loss and recent influenza A infection. She was just released from the hospital 2 days ago after completing her Tamiflu. She was prescribed 30 mg of prednisone daily along with fluconazole for ?mold? on her sputum culture but otherwise was continued on her low-dose Lasix and usual small amount of medications. She does not normally eat or drink very much and that seemed to have been exacerbated this week at the [facility] later [facility]. Her daughter brought her back today to the ED because of increasing edema and trouble breathing. Testing documented a sodium level of 109. In the ED she was given a 100 mL 3% saline bolus and the sodium level came up to 111. She has never had severe hyponatremia before. Her recent sodium levels are in the 129-131 range. She has had no seizures, myoclonus or tetany. She has no chest pain, vomiting or diarrhea. She has not been drinking excessive amounts of liquids. [facility]LY [facility] Medical History Benign essential HTN COPD (chronic obstructive pulmonary disease) Macular degeneration Tinnitus Hearing loss Surgical History Anesthesia History of surgery on wrist (~2017) Family History Father History of emphysema Mother Alzheimer's disease Brother No problems noted. Social History household members: none Smoking Status: Former smoker Tobacco: How many years used: 30 alcohol intake: current substance use type: does not use Meds Home Medications and Allergies Home Medications Medication Instructions Recorded Confirmed Type albuterol sulfate 90 mcg/actuation 2 puff inhalation Q6H PRN wheezing 10/22/23 04/23/24 History aerosol inhaler losartan 50 mg tablet 50 mg PO DAILY 04/16/24 04/22/24 History albuterol sulfate 2.5 mg/3 mL 2.5 mg (3 mL) inhalation Q6H #75 mL 04/17/24 04/23/24 Rx (0.083 %) solution for nebulization fluticasone 250 mcg-salmeterol 50 1 ea inhalation BID 04/18/24 04/23/24 History mcg/dose blistr powdr for inhalation furosemide 20 mg tablet 20 mg PO DAILY #5 tabs 04/18/24 04/23/24 Rx benzonatate 100 mg capsule 100 mg PO TID PRN Cough #20 caps 04/21/24 04/23/24 Rx fluconazole 100 mg tablet 100 mg PO DAILY #10 tabs 04/21/24 04/23/24 Rx oseltamivir 75 mg capsule (Tamiflu) 75 mg PO BID #4 caps 04/21/24 04/23/24 Rx prednisone 20 mg tablet 30 mg (1.5 x 20 mg) PO DAILY #7 04/21/24 04/22/24 Rx tabs Allergies Allergy/AdvReac Type Severity Reaction Status Date / Time doxycycline Allergy Intermediate TENNITIUS Verified 04/18/24 12:38 Penicillins Allergy Intermediate Rash and Verified 04/18/24 12:38 swelling Shell beans Allergy Intermediate swelling Uncoded 04/18/24 12:38 and blistering around mouth, rash Review of Systems Review of Systems Narrative: Positive for shortness of breath, peripheral edema, poor appetite and weakness. Negative for fevers, chills, sweats, dysuria, coughing, wheezing, diarrhea, vomiting, abdominal pain, chest pain, joint pain, rashes, sore throat, new allergies. Exam Vital Signs (past 8 hours): - 04/23/24 12:09 04/23/24 12:30 04/23/24 12:51 Temperature 98.1 F Pulse Rate 92 H 90 83 Respiratory Rate 30 H 24 33 H Blood Pressure 149/72 H Pulse Oximetry 94 98 97 Oxygen Delivery Method Nasal Cannula Nasal Cannula Oxygen Flow Rate 2 2 Fraction of Inspired Oxygen 28 04/23/24 13:00 04/23/24 13:30 04/23/24 13:50 Temperature Pulse Rate 85 85 86 Respiratory Rate 33 H 29 H 24 Blood Pressure Pulse Oximetry 97 96 94 Oxygen Delivery Method Nasal Cannula Oxygen Flow Rate 2 Fraction of Inspired Oxygen 04/23/24 13:50 04/23/24 14:00 04/23/24 14:00 Temperature Pulse Rate 84 Respiratory Rate 24 Blood Pressure 155/78 H 147/85 H Pulse Oximetry 96 Oxygen Delivery Method Oxygen Flow Rate Fraction of Inspired Oxygen 04/23/24 14:30 04/23/24 14:30 04/23/24 15:00 Temperature Pulse Rate 88 82 Respiratory Rate 24 Blood Pressure 146/71 H Pulse Oximetry 96 95 Oxygen Delivery Method Nasal Cannula Oxygen Flow Rate 2 Fraction of Inspired Oxygen 04/23/24 15:00 04/23/24 15:30 04/23/24 15:30 Temperature Pulse Rate 76 Respiratory Rate 30 H Blood Pressure 133/73 141/83 H Pulse Oximetry 96 Oxygen Delivery Method Nasal Cannula Oxygen Flow Rate 2 Fraction of Inspired Oxygen 04/23/24 16:00 04/23/24 16:00 Temperature Pulse Rate 72 Respiratory Rate 16 Blood Pressure 133/62 Pulse Oximetry 97 Oxygen Delivery Method Nasal Cannula Oxygen Flow Rate 2 Fraction of Inspired Oxygen Fraction of Inspired Oxygen 28 SaO2/FiO2 Ratio 350 Oxygen Delivery Method Nasal Cannula Oxygen Flow Rate 2 Narrative Exam Narrative: She is alert and oriented x3. She has in no apparent distress. She is hard of hearing. Pupils are equally round and reactive to light and accommodation. Extraocular muscles are intact. Sclerae are pink and nonicteric. Lymph nodes are not present in the head/supraclavicular/neck area. There is no thyromegaly Throat looks normal but dry. JVD is less than 6 cm. No carotid bruits are heard Heart is regular rate and rhythm without murmur Lungs are clear to auscultation bilaterally Abdomen is soft, bowel sounds positive, nontender, no organomegaly. Extremities have no ankle edema Skin has no rash or jaundice. There are scattered bruises. Neurological exam there is no tetany, increased reflexes, dysmetria, cranial nerve dysfunction, lateralizing deficit. Objective Labs 04/23/24 12:36 04/23/24 14:30 Labs: Laboratory Results - last 24 hr 04/23/24 04/23/24 12:36 14:30 WBC 14.7 H RBC 4.39 Hgb 13.2 Hct 38.7 MCV 88.3 MCH 30.2 MCHC 34.2 RDW 12.6 Plt Count 511 H Neut % (Auto) 88.9 H Lymph % (Auto) 5.7 L [place] % (Auto) 4.7 Eos % (Auto) 0.0 L Baso % (Auto) 0.7 Neut # (Auto) 00443 H Lymph # (Auto) 800 L [place] # (Auto) 700 Eos # (Auto) 0 Baso # (Auto) 100 PT 11.0 INR 1.0 Sodium 109 L* D 111 L* Potassium 4.7 4.6 Chloride 74 L* 78 L Carbon Dioxide 26 26 BUN 26 H 25 H Creatinine 0.71 0.65 Estimated GFR > 60 > 60 BUN/Creatinine Ratio 36.6 H 38.5 H Glucose 130 H 125 H Lactate 1.3 Calcium 8.4 8.3 L Total Bilirubin 1.1 AST 45 H ALT 40 H Alkaline Phosphatase 77 Troponin I 0.013 NT-Pro-B Natriuret Pep 5530 H Total Protein 7.0 Albumin 4.1 Globulin 2.9 Albumin/Globulin Ratio 1.4 Assessment & Plan Assessment & Plan narrative: This is an 84-year-old female who was just released from the hospital 2 days ago after completing her Influenza A Tamiflu. She was prescribed 30 mg of prednisone daily along with fluconazole for ?mold? on her sputum culture but otherwise was continued on her low-dose Lasix and usual small amount of medications. She does not normally eat or drink very much and that seemed to have been exacerbated this week at the assisted living [facility]. Her daughter brought her back today to the ED because of increasing edema and trouble breathing. Testing documented a sodium level of 109. Severe hyponatremia, present on admission. -Two days ago her sodium was 131. Today it is 109. -after 100 mL bolus of 3% saline her sodium level rises to 111. -give additional 50 mL bolus of 3% saline and recheck sodium level. -the goal is to raise her sodium level by 4-6 over the 1st 24 hours. -the etiology appears to be related to poor oral intake, Lasix and other unknown factors. COPD without current exacerbation -recent influenza A which she seems to have recovered from. -continue prednisone and albuterol. Hypertension -continue losartan and furosemide ?Mold? in recent sputum culture -holding fluconazole due to lack of symptoms and possible relationship to the hyponatremia Repeat culture if she develops a productive cough. Enoxaparin for DVT prevention Her daughter is her backup decision maker. Time-Based Coding :: [TOTAL MINUTES] spent with patient and on the chart (including review of chart, obtaining history, exam, reviewing outside data, placing orders, documenting exam and treatment plan, and counseling patient) on [DATE]. Quality VTE Deep Vein Thrombosis/Pulmonary Embolism Present on Admission: No
[2024-04-23] MEDS: SODIUM CHLORIDE 3 % 50 ML 150 ML IV (17:26)
--- NOTE | 2024-04-23 18:14 | PC.NURSE ---
Patient arrived to room 231, immediately transferred to [facility] where she had a small urine output and small soft BM. Patient wiped herself multiple times till there was blood on the toilet paper. Visible area of external hemorrhoid that looked irritated. Patient on 2L O2 by NC, satting at 97%, is tachypneic at 30-40 shallow respirations per minute. Fine crackles in bases, wet cough with yellow mucoid expectorant that she spits into tissue. Patient is AxOx4 but very hard of hearing. Patient given 3% Saline, 50mls around arrival, recheck being drawn right now at 1818. Patient without complaint at this time.
[2024-04-23 18:55] LABS: BUN Creatinine Ratio 38.3 (6-22); Blood Urea Nitrogen 23 mg/dL (7-17); Calcium 8.3 mg/dL (8.4-10.2); Carbon Dioxide 26 mmol/L (22-32); Chloride 80 mmol/L (98-107); Estimated Glomerular Filt Rate > 60 mL/min (>60); Glucose 143 mg/dL (80-110); HEMOLYSIS 38 (0-50); Potassium 4.4 mmol/L (3.4-5.1)
[2024-04-23 18:58] LABS: Sodium 112 mmol/L (137-145)
[2024-04-23 19:26] LABS: MRSA (Nasal) PCR NOT DETECTED (Not Detect)
[2024-04-23] MEDS: ALBUTEROL 2.5 MG/3 ML NEB (ADULT) INH (20:02)
[2024-04-24] VITALS (21 sets, daily range): BP systolic 127–197; BP diastolic 60–91; PULSE 76–105; RESP 15–41; TEMP 35.7–37.3; O2SAT 90–97
[2024-04-24 05:41] LABS: Add Manual Diff / Slide Review NO; Basophils Absolute Auto 0 /uL (0-100); Basophils Percent Auto 0.1 % (0-2); Eosinophils Absolute Auto 0 /uL (0-450); Eosinophils Percent Auto 0.1 % (2-4); Hematocrit 36.8 % (36-46); Hemoglobin 12.8 g/dL (12.0-16.0); Lymphocytes Absolute Auto 1200 /uL (1100-4500); Lymphocytes Percent Auto 7.1 % (25-40); Mean Corpuscular HGB Conc 34.7 % (30-36); Mean Corpuscular Hemoglobin 30.3 PG (26-34); Mean Corpuscular Volume 87.4 fL (80-100); Monocytes Absolute Auto 2100 /uL (0-900); Monocytes Percent Auto 12.9 % (3-14); Neutrophils Absolute Auto 13000 /uL (1500-7000); Neutrophils Percent Auto 79.8 % (50-75); Platelet Count 443 X10^3/uL (150-400); Red Blood Cell Count 4.21 X10^6/uL (4.0-5.2); Red Cell Distribution Width 12.9 % (11.6-14.8); White Blood Cell Count 16.3 X10^3/uL (4.5-11.0)
[2024-04-24 05:42] LABS: BUN Creatinine Ratio 33.3 (6-22); Blood Urea Nitrogen 20 mg/dL (7-17); Calcium 8.6 mg/dL (8.4-10.2); Carbon Dioxide 29 mmol/L (22-32); Chloride 83 mmol/L (98-107); Estimated Glomerular Filt Rate > 60 mL/min (>60); Glucose 97 mg/dL (80-110); HEMOLYSIS < 15 (0-50); Potassium 3.9 mmol/L (3.4-5.1)
[2024-04-24 05:49] LABS: Sodium 115 mmol/L (137-145)
[2024-04-24] MEDS: BENZONATATE 100 MG CAPSULE PO (08:16)
[2024-04-24] MEDS: LOSARTAN 50 MG TABLET PO (08:16)
[2024-04-24] MEDS: predniSONE 20 MG TABLET 30 MG PO (08:17)
[2024-04-24] MEDS: ENOXAPARIN 30 MG/0.3 ML SYRINGE SUBCUT (08:17)
--- NOTE | 2024-04-24 08:19 | P.PN_ITS ---
Subjective Subjective Date Patient Seen: 04/24/24 Interval history: She is seen today to follow-up her COPD and severe hyponatremia. She says she is having more trouble breathing today despite the prednisone and albuterol. Her sodium level anna to 112 last night and then to 115 this morning. That is a 6 point rise which was the goal for the 1st 24 hours. This was done using 2 or 3 small volume saline 3% boluses. She is requesting Tylenol and Robitussin for her cough. Tessalon has not been sufficient to suppress her cough adequately. Exam Vital Signs (past 8 hours): - 04/24/24 04:00 04/24/24 08:16 Temperature 98.3 F Pulse Rate 76 93 H Respiratory Rate 17 Blood Pressure 143/70 H 156/79 H Pulse Oximetry 94 Oxygen Flow Rate 1 Fraction of Inspired Oxygen 28 SaO2/FiO2 Ratio 350 Oxygen Delivery Method Nasal Cannula Oxygen Flow Rate 1 Narrative Exam Narrative: Alert and oriented x3. Appears to be in moderate distress from dyspnea and persistent coughing. Heart is regular rate and rhythm without murmur Lungs have wheezes bilaterally Bilateral trace ankle edema. She is very hard of hearing. Objective Labs 04/24/24 04:15 04/24/24 04:15 Labs: Laboratory Results - last 24 hr 04/23/24 04/23/24 04/23/24 12:36 14:30 17:06 WBC 14.7 H RBC 4.39 Hgb 13.2 Hct 38.7 MCV 88.3 MCH 30.2 MCHC 34.2 RDW 12.6 Plt Count 511 H Neut % (Auto) 88.9 H Lymph % (Auto) 5.7 L [place] % (Auto) 4.7 Eos % (Auto) 0.0 L Baso % (Auto) 0.7 Neut # (Auto) 49446 H Lymph # (Auto) 800 L [place] # (Auto) 700 Eos # (Auto) 0 Baso # (Auto) 100 PT 11.0 INR 1.0 Sodium 109 L* D 111 L* Potassium 4.7 4.6 Chloride 74 L* 78 L Carbon Dioxide 26 26 BUN 26 H 25 H Creatinine 0.71 0.65 Estimated GFR > 60 > 60 BUN/Creatinine Ratio 36.6 H 38.5 H Glucose 130 H 125 H Lactate 1.3 Calcium 8.4 8.3 L Total Bilirubin 1.1 AST 45 H ALT 40 H Alkaline Phosphatase 77 Troponin I 0.013 NT-Pro-B Natriuret Pep 5530 H Total Protein 7.0 Albumin 4.1 Globulin 2.9 Albumin/Globulin Ratio 1.4 Nasal Screen MRSA (PCR) Not detected 04/23/24 04/24/24 18:33 04:15 WBC 16.3 H RBC 4.21 Hgb 12.8 Hct 36.8 MCV 87.4 MCH 30.3 MCHC 34.7 RDW 12.9 Plt Count 443 H Neut % (Auto) 79.8 H Lymph % (Auto) 7.1 L [place] % (Auto) 12.9 Eos % (Auto) 0.1 L Baso % (Auto) 0.1 Neut # (Auto) 92627 H Lymph # (Auto) 1200 [place] # (Auto) 2100 H Eos # (Auto) 0 Baso # (Auto) 0 PT INR Sodium 112 L* 115 L* Potassium 4.4 3.9 Chloride 80 L 83 L Carbon Dioxide 26 29 BUN 23 H 20 H Creatinine 0.60 0.60 Estimated GFR > 60 > 60 BUN/Creatinine Ratio 38.3 H 33.3 H Glucose 143 H 97 Lactate Calcium 8.3 L 8.6 Total Bilirubin AST ALT Alkaline Phosphatase Troponin I NT-Pro-B Natriuret Pep Total Protein Albumin Globulin Albumin/Globulin Ratio Nasal Screen MRSA (PCR) [facility] Medical History Benign essential HTN COPD (chronic obstructive pulmonary disease) Macular degeneration Tinnitus Hearing loss Surgical History Anesthesia History of surgery on wrist (~2017) Family History Father History of emphysema Mother Alzheimer's disease Brother No problems noted. Social History household members: none Smoking Status: Former smoker Tobacco: How many years used: 30 alcohol intake: current substance use type: does not use Assessment & Plan Assessment & Plan narrative: This is an 84-year-old female who was just released from the hospital 2 days ago after completing her Influenza A Tamiflu. She was prescribed 30 mg of prednisone daily along with fluconazole for ?mold? on her sputum culture but otherwise was continued on her low-dose Lasix and usual small amount of medications. She does not normally eat or drink very much and that seemed to have been exacerbated this week at the assisted living community. Her daughter brought her back today to the ED because of increasing edema and trouble breathing. Testing documented a sodium level of 109. Severe hyponatremia, present on admission. -Two days ago her sodium was 131. On admission it is 109. -after 100 mL bolus of 3% saline her sodium level rises to 111. -after 50 ml bolus of 3% saline her sodium level is 112 -This morning her sodium level is 115 -the goal is to raise her sodium level by 4-6 over 24 hours. -the etiology appears to be related to poor oral intake, Lasix and other unknown factors. COPD with current exacerbation -recent influenza A which she seems to have recovered from. -begin Solumedrol IV as she appears to be worsening despite Prednisone PO -Albuterol -BNP 5530 but symptoms point towards COPD. Add Lasix if not responding. Hypertension -continue losartan and furosemide ?Mold? in recent sputum culture -holding fluconazole due to lack of symptoms and possible relationship to the hyponatremia Repeat culture if she develops a productive cough. Enoxaparin for DVT prevention Her daughter is her backup decision maker. She is Full Code. Time-Based Coding :: [TOTAL MINUTES] spent with patient and on the chart (including review of chart, obtaining history, exam, reviewing outside data, placing orders, documenting exam and treatment plan, and counseling patient) on [DATE]. Quality VTE Deep Vein Thrombosis/Pulmonary Embolism Present on Admission: No
[2024-04-24] MEDS: ALBUTEROL 2.5 MG/3 ML NEB (ADULT) INH ×3 (08:40→19:46)
--- NOTE | 2024-04-24 10:05 | PC.NURSE ---
Addendum entered by Josefa Ward R.N. 04/24/24 20:08: 1930 Report given to julius BOURNE. Plan of care discussed. Addendum entered by Josefa Ward R.N. 04/24/24 17:24: 1300 Patient daughter updated on plan of care. 1600 Patient daughter updated on plan of care. Addendum entered by Josefa Ward R.N. 04/24/24 10:58: [address] 1045 Patient back on unit from CT. Original Note: 23 Report received from julius BOURNE. Plan of care discussed. Patient AAO x's 3, able to HERRERA. Denies pain, numbness and tingling at this time. PIV noted to BUE. Call light within reach and bed in lowest position. 0900 Patient assisted to bedside commode, 88% on 1L NC with exertion. Patient back to bed sating 92% 0945 MD Stickle at the bedside. Patient assessed and updated on plan of care. Patient possibly to have CXR or CT scan. Steroid medication and Tylenol possibly to be added to MAR.
--- NOTE | 2024-04-24 10:17 | DI.CT.S_ITS ---
PROCEDURE: CT ANGIO CHEST PE PROTOCOL INDICATIONS: Shortness of Breath TECHNIQUE: After the administration of intravenous contrast, 2 mm thick sections acquired from the pulmonary apices to the posterior costophrenic angles. 3-dimensional maximum intensity projection (MIP) coronal and sagittal reformats were then acquired through the thorax. For radiation dose reduction, the following was used: automated exposure control, adjustment of mA and/or kV according to patient size. COMPARISON: None. FINDINGS: Image quality: Diagnostic. Pulmonary arteries: Pulmonary arteries are normal in size, and demonstrate no intraluminal filling defects to suggest central pulmonary embolism. Lower Neck: No enlarged lymph nodes. Thyroid: Normal CT appearance. Axillae: No enlarged lymph nodes. Chest Wall: Unremarkable. Bones: Mild thoracic endplate degenerative change. No suspicious bone lesions. Lungs and Pleura: [id number] centrilobular emphysema in upper and lower lobes. Patchy bilateral peripheral airways of nodular interstitial thickening and a small peripheral consolidation of the left posterior lung base and to lesser extent at the right posterior lung base. Minimal ground-glass opacities along the anterior pleural surfaces right middle lobe and lingula. No dominant dense consolidations. No pleural effusion or pneumothorax. Incidental small part solid nodule in the lateral right middle lobe, 206. Heart: Normal size heart. Trace anterior pericardial effusion or thickening. Mild to moderate coronary artery calcification. Thoracic Vessels: Mild ascending aortic aneurysm at 4.4 cm AP diameter. Heavy calcification at the aortic arch and great vessel origins. Moderate calcification of the normal caliber descending thoracic aorta. Mediastinum and Codie: No enlarged lymph nodes. There is a fat containing hernia in the posterior mediastinum along the prevertebral space to the right of the aorta. Esophagus: No wall thickening. No hiatal hernia. Upper Abdomen: Visualized upper abdomen solid organs and bowel loops appear normal. IMPRESSION: No pulmonary embolus. Small bilateral posterior lower lobe mixed interstitial and small left base alveolar opacities most suggestive of an infectious or inflammatory process, as are the minimal anterior ground-glass opacities. [id number] emphysematous change. Ascending aortic aneurysm. Consider surveillance. Dictated by: Kailey London M.D. on 04/24/2024 at 11:37 Approved by: Kailey London M.D. on 04/24/2024 at 11:45
--- NOTE | 2024-04-24 11:37 | DIET.CONS ---
Dietary Consultation Note Admission Date: 04/23/2024 15:22 Assessment: 84 y F admitted for severe hyponatremia. RD screened for low MNA. Pt getting scan this morning at attempted visits. EMR reviewed. Suspected to have low PO intakes for last week per H&P. Recorded PO intakes from 04/19-04/21 during recent hospitalization were 75-100%, however per DFM, these meals were 1/2 portion sizes. Ht: 167.64 cm Wt: 54.431 kg BMI: 19.3 UBW: 56.245 kg on 10/22/23 (-3% weight loss, non-severe) Last BM: 04/23/24 (04/23/24 21:00) MNA: 8 Kevan Score: 17 Diet: 04/23/24 Dinner General (Regular) Diet Diet Modifications: Nutrition Percent Meal Consumed 10 04/23/24 18:00 Labs: RBC 4.21 X10^6/uL (4.0-5.2) 04/24/24 04:15 Hgb 12.8 g/dL (12.0-16.0) 04/24/24 04:15 Hct 36.8 % (36-46) 04/24/24 04:15 Creatinine 0.60 mg/dL (0.52-1.04) 04/24/24 04:15 Lactate 1.3 mmol/L (0.7-2.1) 04/23/24 12:36 NT-Pro-B Natriuret Pep 5530 pg/mL (<450) H 04/23/24 12:36 Nutrition Diagnosis: Inadequate oral intakes r/t decrease appetite aeb reported low intakes, small portion sizing at meals Interventions: ONS BID EER: 1800 kcals (30 kcals/kg per BMI) 55 g protein (1g/kg per age) Monitoring/Evaluations: PO intakes, ONS tolerance Electronically Signed by: Emerita Garcia 04/24/24 11:37 Clinical Dietitian [address] [id number]
[2024-04-24] MEDS: methylPREDNISolone 125 MG/2 ML VIAL 60 MG IV ×2 (11:51→18:12)
[2024-04-24] MEDS: CEFEPIME 2 GM in SODIUM CHLORIDE 0.9% 100 ML IV (15:57)
--- NOTE | 2024-04-24 16:26 | CM.DANOTE ---
DCP Assessment Note pt is a 84yo F readmit here with severe hyponatremia. previously admitted for influenza A PCP Anoop Partida Payer Medicare and BCBS out of [facility] JUNIOR PROJECT COORDINATOR reviewed EMR. Per chart review, pt lives indep at [facility], dc'd home with no CM needs previous admission. Per hospitalist in morning rounds, unsure why sodium dropped so low. doing some testing to find out. Hold PT/OT for today, f/u on PT for Saturday. JUNIOR PROJECT COORDINATOR met with pt briefly in room. pt [place]. pt confirms living at [facility] indep, reports not wanting to dc until there are more answers to her sodium. denied HH last admission, will see how she does with PT this admission prior to discharging back home. P: CLAUDETTE unknown, likely a few days. anticipate return home to [facility], r/o need for HH. CM team will continue to follow closely for any DCP needs that arise. HARVEY Gomez Discharge Planning/Care Management CM Discharge Assessment Start: 04/24/24 16:24 Freq: Status: Active Protocol: Document 04/24/24 16:24 SL (Rec: 04/24/24 16:26 [id number]) Discharge Planning Assessment Assigned [employer] Operator Surface HARVEY Segundo DPOA/Assigned Designee Name renato Gregory Contact Information [phone] Advance Directives? No Advance Directives on File No History Provided By Patient,Medical Record Has Patient been admitted in last 30 Yes days? Comment 04/20/24-04/21/24 Prior Living Arrangements Custodial Facility Comment [facility] Household Members none Facility Name Admitted From: [facility] [address] Independent with ADL's Yes Is patient alert and oriented? Yes DME Already Rented / Owned Cane Discharge Plan Home Transportation Arrangement friend vs dtr Additional Comment Pending pt's progress with PT/ OT Review Status In Process Please Provide Date Initial DC 04/24/24 Assessment Was Performed Next Review Type Continued Stay Review
[2024-04-24] MEDS: ACETAMINOPHEN 325 MG TABLET 650 MG PO (18:14)
[2024-04-24] MEDS: MIRTAZAPINE 15 MG TABLET 7.5 MG PO (20:52)
[2024-04-24] MEDS: CODEINE/GUAIFENESIN LIQUID 5ML UDC 5 ML PO (20:56)
[2024-04-25] VITALS (17 sets, daily range): BP systolic 117–176; BP diastolic 66–88; PULSE 69–99; RESP 14–42; TEMP 36.3–37.4; O2SAT 88–98
[2024-04-25] MEDS: methylPREDNISolone 125 MG/2 ML VIAL 60 MG IV ×3 (02:37→17:41)
[2024-04-25] MEDS: CEFEPIME 2 GM in SODIUM CHLORIDE 0.9% 100 ML IV ×2 (03:39→15:12)
[2024-04-25] MEDS: CODEINE/GUAIFENESIN LIQUID 5ML UDC 5 ML PO ×3 (04:38→17:55)
[2024-04-25 05:49] LABS: BUN Creatinine Ratio 33.8 (6-22); Blood Urea Nitrogen 24 mg/dL (7-17); Calcium 8.6 mg/dL (8.4-10.2); Carbon Dioxide 30 mmol/L (22-32); Chloride 87 mmol/L (98-107); Estimated Glomerular Filt Rate > 60 mL/min (>60); Glucose 136 mg/dL (80-110); HEMOLYSIS < 15 (0-50); Potassium 4.1 mmol/L (3.4-5.1)
[2024-04-25 05:53] LABS: Sodium 118 mmol/L (137-145)
--- NOTE | 2024-04-25 08:00 | PM.PN.1 ---
Subjective Subjective Date Patient Seen: 04/25/24 Interval history: She is seen today to follow-up her COPD exacerbation and severe hyponatremia. She says she feels better. She actually looks better and sounds better too. She is not on antibiotics. A sputum culture was collected and will be sent today. The sodium level is 118. She will receive another 100 mL 3% saline bolus today. Exam Vital Signs (past 8 hours): - 04/25/24 00:01 04/25/24 00:01 04/25/24 02:00 Temperature Pulse Rate 77 69 Respiratory Rate 15 14 Blood Pressure 117/66 Pulse Oximetry 96 88 L Oxygen Flow Rate 04/25/24 03:30 04/25/24 03:38 Temperature 98.6 F 97.6 F Pulse Rate 71 Respiratory Rate 14 Blood Pressure 117/66 Pulse Oximetry 96 Oxygen Flow Rate 3 2 Fraction of Inspired Oxygen 28 SaO2/FiO2 Ratio 350 Oxygen Delivery Method Nasal Cannula Oxygen Flow Rate 2 Narrative Exam Narrative: Alert and oriented x3. No apparent distress Very hard of hearing Heart is regular rate and rhythm without murmur Lungs have mild wheezing bilaterally Extremities have trace bilateral ankle edema. Objective Labs 04/24/24 04:15 04/25/24 04:10 Labs: Laboratory Results - last 24 hr 04/25/24 04:10 Sodium 118 L* Potassium 4.1 Chloride 87 L Carbon Dioxide 30 BUN 24 H Creatinine 0.71 Estimated GFR > 60 BUN/Creatinine Ratio 33.8 H Glucose 136 H Calcium 8.6 PFSH Medical History Benign essential HTN COPD (chronic obstructive pulmonary disease) Macular degeneration Tinnitus Hearing loss Surgical History Anesthesia History of surgery on wrist (~2017) Family History Father History of emphysema Mother Alzheimer's disease Brother No problems noted. Social History household members: none Smoking Status: Former smoker Tobacco: How many years used: 30 alcohol intake: current substance use type: does not use Assessment & Plan Assessment & Plan narrative: This is an 84-year-old female who was just released from the hospital 2 days ago after completing her Influenza A Tamiflu. She was prescribed 30 mg of prednisone daily along with fluconazole for ?mold? on her sputum culture but otherwise was continued on her low-dose Lasix and usual small amount of medications. She does not normally eat or drink very much and that seemed to have been exacerbated this week at the assisted living community. Her daughter brought her back today to the ED because of increasing edema and trouble breathing. Testing documented a sodium level of 109. Severe hyponatremia, present on admission. -Two days prior her sodium was 131. On admission it was 109. -after 100 mL bolus of 3% saline her sodium level rises to 111. -after 50 ml bolus of 3% saline her sodium level is 112 -04/24 sodium level is 115 -04/25 sodium level is 118 -the goal is to raise her sodium level by 4-6 over 24 hours. -give additional 100 mL bolus of 3% saline 04/25 -the etiology appears to be related to poor oral intake, Lasix and other unknown factors. COPD with current exacerbation -chest CT negative for PE. Small bilateral posterior lower lobe mixed interstitial and small left base alveolar opacities most suggestive of an infectious or inflammatory process -recent influenza A which she seems to have recovered from. -improving without any antibiotic intervention. -begin Solumedrol IV as she appears to be worsening despite Prednisone PO -Albuterol -BNP 5530 but symptoms point towards COPD. Add Lasix if not responding. Hypertension -continue losartan and furosemide ?Mold? in recent sputum culture -holding fluconazole due to lack of symptoms and possible relationship to the hyponatremia -successful at obtaining sputum for repeat culture on 04/25 Enoxaparin for DVT prevention Her daughter is her backup decision maker. She is Full Code. Time-Based Coding :: [TOTAL MINUTES] spent with patient and on the chart (including review of chart, obtaining history, exam, reviewing outside data, placing orders, documenting exam and treatment plan, and counseling patient) on [DATE]. Quality VTE Deep Vein Thrombosis/Pulmonary Embolism Present on Admission: No
[2024-04-25] MEDS: ALBUTEROL 2.5 MG/3 ML NEB (ADULT) INH ×3 (08:39→20:10)
[2024-04-25] MEDS: ENOXAPARIN 40 MG/0.4 ML SYRINGE SUBCUT (09:15)
[2024-04-25] MEDS: LOSARTAN 50 MG TABLET PO (09:15)
[2024-04-25] MEDS: ACETAMINOPHEN 325 MG TABLET 650 MG PO ×2 (09:49→20:32)
[2024-04-25] MEDS: SODIUM CHLORIDE 3 % 100 ML 20 ML IV (10:00)
--- NOTE | 2024-04-25 14:37 | CM.DPNOTE ---
DCP note FINANCIAL ASSOCIATE reviewed EMR. Sodium of 118 today. Provider approved PT eval, PT attempted, pt refused. FINANCIAL ASSOCIATE attempted to meet with pt in room, sleeping soundly, allowed to rest. P: CLAUDETTE unknown, likely a few days. anticipate return home to [facility], r/o need for HH. CM team will continue to follow closely for any DCP needs that arise. Ratna Clarke, HARVEY
--- NOTE | 2024-04-25 15:41 | PT-IP ANOTE ---
PT eval order received. EMR reviewed. pt with Sodium level of 118. talked to nurse and stated that pt is currently receiving IV to increase sodium and will be ok to see PT. checked on pt and pt refused PT. stated that she is worn out today and does not want to move. informed pt that PT will check later today and pt requested not to. stated that she does not want to do PT for today. informed pt to do PT tomorrow and agreed. informed nurse and case hardener.
[2024-04-25 19:55] LABS: Sodium 125 mmol/L (137-145)
[2024-04-25] MEDS: MIRTAZAPINE 15 MG TABLET 7.5 MG PO (20:33)
[2024-04-26] VITALS (20 sets, daily range): BP systolic 143–214; BP diastolic 70–105; PULSE 72–107; RESP 15–47; TEMP 36.2–36.8; O2SAT 93–98
[2024-04-26] MEDS: methylPREDNISolone 125 MG/2 ML VIAL 60 MG IV ×3 (02:41→18:23)
[2024-04-26] MEDS: CEFEPIME 2 GM in SODIUM CHLORIDE 0.9% 100 ML IV ×2 (02:42→15:58)
[2024-04-26] MEDS: CODEINE/GUAIFENESIN LIQUID 5ML UDC 5 ML PO ×2 (02:54→20:29)
[2024-04-26 04:35] LABS: BUN Creatinine Ratio 45.3 (6-22); Blood Urea Nitrogen 34 mg/dL (7-17); Calcium 9.1 mg/dL (8.4-10.2); Carbon Dioxide 30 mmol/L (22-32); Chloride 94 mmol/L (98-107); Estimated Glomerular Filt Rate > 60 mL/min (>60); Glucose 131 mg/dL (80-110); HEMOLYSIS < 15 (0-50); Potassium 4.9 mmol/L (3.4-5.1); Sodium 125 mmol/L (137-145)
[2024-04-26] MEDS: ALBUTEROL 2.5 MG/3 ML NEB (ADULT) INH ×3 (07:51→19:05)
[2024-04-26] MEDS: ENOXAPARIN 40 MG/0.4 ML SYRINGE SUBCUT (08:15)
[2024-04-26] MEDS: ACETAMINOPHEN 325 MG TABLET 650 MG PO ×2 (08:16→20:29)
[2024-04-26] MEDS: LOSARTAN 50 MG TABLET PO (08:16)
--- NOTE | 2024-04-26 08:19 | PM.PN.1 ---
Subjective Subjective Date Patient Seen: 04/26/24 Interval history: She is seen today to follow-up her COPD exacerbation and her severe hyponatremia. She says she feels like she is slightly better. She is eating more now. The sodium level this morning is 125. She does look a little better on exam. The blood pressure is 167/77. Exam Vital Signs (past 8 hours): - 04/26/24 00:30 04/26/24 03:56 04/26/24 04:28 Temperature 97.3 F L 97.4 F L Pulse Rate 72 75 Respiratory Rate 15 15 Blood Pressure 153/78 H 159/77 H Pulse Oximetry 98 93 Oxygen Delivery Method Nasal Cannula Oxygen Flow Rate 04/26/24 07:29 04/26/24 07:30 04/26/24 07:30 Temperature 98.0 F Pulse Rate 104 H Respiratory Rate 47 H Blood Pressure 214/100 H 207/105 H Pulse Oximetry 94 Oxygen Delivery Method Oxygen Flow Rate 1 04/26/24 07:55 04/26/24 08:16 Temperature Pulse Rate 81 89 Respiratory Rate 18 Blood Pressure 167/77 H Pulse Oximetry 98 Oxygen Delivery Method Nasal Cannula Oxygen Flow Rate 97 Fraction of Inspired Oxygen 28 SaO2/FiO2 Ratio 350 Oxygen Delivery Method Nasal Cannula Oxygen Flow Rate 97 Narrative Exam Narrative: Alert and oriented x3. Moderate distress from respiratory effort. Heart is regular rate and rhythm without murmur Lungs are clear to auscultation bilaterally Extremities have no ankle edema Objective Labs 04/24/24 04:15 04/26/24 08:47 Labs: Laboratory Results - last 24 hr 04/25/24 04/26/24 19:43 03:50 Sodium 125 L 125 L Potassium 4.9 Chloride 94 L Carbon Dioxide 30 BUN 34 H Creatinine 0.75 Estimated GFR > 60 BUN/Creatinine Ratio 45.3 H Glucose 131 H Calcium 9.1 PFSH Medical History Benign essential HTN COPD (chronic obstructive pulmonary disease) Macular degeneration Tinnitus Hearing loss Surgical History Anesthesia History of surgery on wrist (~2017) Family History Father History of emphysema Mother Alzheimer's disease Brother No problems noted. Social History household members: none Smoking Status: Former smoker Tobacco: How many years used: 30 alcohol intake: current substance use type: does not use Assessment & Plan Assessment & Plan narrative: This is an 84-year-old female who was just released from the hospital 2 days ago after completing her Influenza A Tamiflu. She was prescribed 30 mg of prednisone daily along with fluconazole for ?mold? on her sputum culture but otherwise was continued on her low-dose Lasix and usual small amount of medications. She does not normally eat or drink very much and that seemed to have been exacerbated this week at the [facility] living [facility]. Her daughter brought her back today to the ED because of increasing edema and trouble breathing. Testing documented a sodium level of 109. Severe hyponatremia, present on admission. -Two days prior to admission her sodium was 131. On admission it was 109. -after 100 mL bolus of 3% saline her sodium level rises to 111. -after 50 ml bolus of 3% saline her sodium level is 112 -04/24 sodium level is 115 -04/25 sodium level is 118 -04/26 sodium level is 125 -the goal is to raise her sodium level by 4-6 over 24 hours. -gave additional 100 mL bolus of 3% saline 04/25 -the etiology appears to be related to poor oral intake, Lasix and other unknown factors. No signs of Lung Cancer on CT. COPD with current exacerbation -chest CT negative for PE. Small bilateral posterior lower lobe mixed interstitial and small left base alveolar opacities most suggestive of an infectious or inflammatory process -recent influenza A which she seems to have recovered from. -Improvements appear to be stalling so will add Ceftriaxone as there are GNB on the sputum gram stain. -Solumedrol IV -Albuterol -BNP 5530 but symptoms point towards COPD. Add Lasix if not responding. Hypertension -continue losartan and furosemide ?Mold? in recent sputum culture -holding fluconazole due to lack of symptoms and possible relationship to the hyponatremia -successful at obtaining sputum for repeat culture on 04/25 Disposition: Likely will return to her assisted living facility. Enoxaparin for DVT prevention Her daughter is her backup decision maker. She is Full Code. Time-Based Coding :: [TOTAL MINUTES] spent with patient and on the chart (including review of chart, obtaining history, exam, reviewing outside data, placing orders, documenting exam and treatment plan, and counseling patient) on [DATE]. Quality VTE Deep Vein Thrombosis/Pulmonary Embolism Present on Admission: No
[2024-04-26 09:06] LABS: BUN Creatinine Ratio 48.5 (6-22); Blood Urea Nitrogen 33 mg/dL (7-17); Calcium 9.3 mg/dL (8.4-10.2); Carbon Dioxide 27 mmol/L (22-32); Chloride 95 mmol/L (98-107); Estimated Glomerular Filt Rate > 60 mL/min (>60); Glucose 136 mg/dL (80-110); HEMOLYSIS 23 (0-50); Sodium 127 mmol/L (137-145)
--- NOTE | 2024-04-26 11:10 | PT.IIE ---
Current Diagnoses Hypo-osmolality and hyponatremia (04/23/24) Surgical History (Last Reviewed 04/23/24 @ 15:05 by Adelaida Hand DO) Anesthesia History of surgery on wrist (~2017) Medical History (Last Reviewed 04/23/24 @ 15:05 by Adelaida Hand DO) Benign essential HTN COPD (chronic obstructive pulmonary disease) Hearing loss Macular degeneration Tinnitus Physical Therapy Inpatient Evaluation/Re-Eval M1 PT/OT-IP Prior Functional Status Start: 04/26/24 09:37 Freq: NEEDED Status: Active Protocol: Document 04/26/24 10:50 MB (Rec: 04/26/24 11:10 MB [id number]) Medical Review Prior Functional Status Medical History Reviewed Yes Diet/Fluid Consistency Regular Communication [facility] Mobility and Gait I, denies falls at [facility] Activities of Daily Living and [facility]'s [facility], pt reports she is I with gait and ADLs, does not drive Social History Household Members none Living Arrangements Alf Facility Number of Stairs To Enter/Railing? Accessible entrance and living in [facility] Home Environment Standard Height Toilet,Walk in Shower,Built-In Shower Seat Home Equipment Hand Held Shower,Grab Bars Near Toilet,Grab Bars In Shower Employment Status Retired M2 PT-IP Current Condition Start: 04/26/24 09:37 Freq: NEEDED Status: Active Protocol: Document 04/26/24 10:50 MB (Rec: 04/26/24 11:10 MB [id number]) Physical Therapy Current Condition Current Condition Evaluation Date 04/26/24 Treatment Diagnosis Return to hospital after adm for influenza A, readm for low sodium M3 PT-IP Subjective Start: 04/26/24 09:37 Freq: NEEDED Status: Active Protocol: Document 04/26/24 10:50 MB (Rec: 04/26/24 11:10 MB [id number]) Subjective Physical Therapy Visit Type Type Initial Evaluation Visit Start Time 10:50 Visit Stop Time 11:00 Number of GLASS BLOWING INSTRUCTOR Visits 0 Physical Therapy Visit Comments Patient Comments Pt states she is cold and she con't with cough. Therapy Pain Assessment Pain When Pain Assessed At Rest Pain Present Pain Present Denied Pain M4 PT-IP Mobility and Gait Start: 04/26/24 09:37 Freq: NEEDED Status: Active Protocol: Document 04/26/24 10:50 MB (Rec: 04/26/24 11:10 MB [id number]) PT-Bed Mobility Assessment Rolling Type of Rolling Roll to Right Level of Assist Contact Guard Assistance Supine to Sit Supine to Sit Contact Guard Assistance,1 Person Assistance,Head of Bed Elevated Scooting Scooting to Edge of Bed Contact Guard Assistance PT-Transfer Assessment Sit to and From Stand Sit to and from Stand Contact Guard Assistance,1 Person Assistance,Use of Upper Extremities Equipment Transfer Assistive Device None Orthotic/Prosthetic Devices or Brace: No Transfers Transfer Destination Chair Transfer Technique Stepping Transfer Ability Level of Assist Contact Guard Assistance Gait Assessment Gait Gait Assistance Required: Contact Guard Assist Distance (Feet) 2 Able to Maintain Weight Bearing Status Yes During Gait Assistive Devices Assistive Device None Orthotic/Prosthetic Devices or Brace: No Gait Deviations General Gait Pattern Flexed Trunk,Step-to Gait Factors Limiting Gait Function Factors Limiting Gait Function Decreased Activity Tolerance, Poor Balance,Respiratory Distress PT-Balance Assessment Sitting Balance and Reactions Static Sitting Balance Ability Good Dynamic Sitting Balance Ability Good Standing Balance and Reactions Static Standing Balance Ability Good Dynamic Standing Balance Ability Fair M5 PT-IP Objective Assessments Start: 04/26/24 09:37 Freq: NEEDED Status: Active Protocol: Document 04/26/24 10:50 MB (Rec: 04/26/24 11:10 MB [id number]) Orientation Orientation/Cognition Level of Alertness Alert Orientation Name,Age,Birthday,Month,Date, Year,Day of Week,Place, Situation Language Function Ability Hard of Hearing Safety Awareness Decreased Safety Awareness Memory Description No Deficits Noted Gross Range of Motion Upper Extremity ROM Impairments Defer to OT Lower Extremity ROM Assessment Within Functional Limits Strength Lower Extremity Strength Assessment Within Functional Limits Coordination Assessment Assessment Coordination Comments NT Sensation Assessment Comments Sensation Comments NT Muscle Tone Muscle Tone WNL Yes M6 PT-IP Treatment Start: 04/26/24 09:37 Freq: NEEDED Status: Active Protocol: Document 04/26/24 10:50 MB (Rec: 04/26/24 11:10 MB [id number]) Physical Therapy Treatment Education Education Provided Safety M7 PT-IP Assessment and Plan Start: 04/26/24 09:37 Freq: NEEDED Status: Active Protocol: Document 04/26/24 10:50 MB (Rec: 04/26/24 11:10 MB [id number]) PT Summary Assessment and Plan Potential Rehabilitation Potential Good Status of Condition at Evaluation Evolving Summary Impairments Balance,Bed Mobility,Transfers ,Gait,Activity Tolerance Progress Towards Goals Slow Progress due to Medical Issues,Slow Progress due to Activity Tolerance Assessment Summary Pt is an 84 y/o female who was readm to hospital with low sodium. She has recent d/c after influenza A. She lives at [facility] and reports I and that she has not had falls . She con't on droplet precautions and 1L O2 this adm and no O2 desaturation with minimal mobility. She con't with cough. Pt con't with acute illness that limits functional mobility. Left up in chair with call lopes and ICU nsg consent. Progress activity as pt tolerates and recommend up to chair for meals and up to toileting, both with nsg. Goals Bed Mobility Goal Independent Transfer Goal Independent Gait Goal Independent Gait Distance 100 Other Goals Attempt to progress gait to no AD given that is her baseline . Days to Meet Goals 5 Frequency of Treatment Frequency Of Treatment Once a Day Treatment Plan Physical Therapy Treatment Plan Bed Mobility Training,Transfer Training,Gait Training, Therapeutic Exercise,Balance Retraining,Discharge Planning, Hot or Cold Pack,Neuromuscular Re-ed,Coordination Retraining ,Manual Therapy Precautions Other Precautions Droplet (completed treatment for influenza A per chart) Recommendations To Nursing Amount of Assist Needed 1 Person Assist Discharge Recommendations PT Discharge Recommendations Home with Assistance,Home Health Transportation Needs at Discharge Private Vehicle
[2024-04-26] MEDS: cefTRIAXone 1,000 MG in SODIUM CHLORIDE 0.9% 100 ML 200 MG IV (12:03)
[2024-04-26] MEDS: SODIUM CHLORIDE 0.9% FLUSH 10 ML IV (20:18)
[2024-04-27] VITALS (26 sets, daily range): BP systolic 140–198; BP diastolic 70–93; PULSE 70–135; RESP 14–42; TEMP 35.7–37; O2SAT 92–97
[2024-04-27] MEDS: methylPREDNISolone 125 MG/2 ML VIAL 60 MG IV ×3 (02:47→17:54)
[2024-04-27] MEDS: CEFEPIME 2 GM in SODIUM CHLORIDE 0.9% 100 ML IV ×2 (02:47→15:15)
[2024-04-27] MEDS: ALBUTEROL 2.5 MG/3 ML NEB (ADULT) INH ×4 (04:01→19:24)
[2024-04-27 05:11] LABS: Add Manual Diff / Slide Review NO; Basophils Absolute Auto 0 /uL (0-100); Eosinophils Absolute Auto 0 /uL (0-450); Hematocrit 39.1 % (36-46); Hemoglobin 13.1 g/dL (12.0-16.0); Lymphocytes Absolute Auto 700 /uL (1100-4500); Lymphocytes Percent Auto 4.4 % (25-40); Mean Corpuscular HGB Conc 33.6 % (30-36); Mean Corpuscular Hemoglobin 30.1 PG (26-34); Mean Corpuscular Volume 89.7 fL (80-100); Monocytes Absolute Auto 1100 /uL (0-900); Monocytes Percent Auto 6.6 % (3-14); Neutrophils Absolute Auto 14700 /uL (1500-7000); Platelet Count 615 X10^3/uL (150-400); Red Blood Cell Count 4.36 X10^6/uL (4.0-5.2); Red Cell Distribution Width 13.6 % (11.6-14.8); White Blood Cell Count 16.6 X10^3/uL (4.5-11.0)
[2024-04-27 05:19] LABS: BUN Creatinine Ratio 51.3 (6-22); Blood Urea Nitrogen 39 mg/dL (7-17); Calcium 9.2 mg/dL (8.4-10.2); Carbon Dioxide 29 mmol/L (22-32); Chloride 93 mmol/L (98-107); Estimated Glomerular Filt Rate > 60 mL/min (>60); Glucose 130 mg/dL (80-110); HEMOLYSIS < 15 (0-50); Potassium 4.7 mmol/L (3.4-5.1); Sodium 127 mmol/L (137-145)
--- NOTE | 2024-04-27 08:07 | PM.PN.1 ---
Subjective Subjective Date Patient Seen: 04/27/24 Interval history: She is seen today to follow-up her pneumonia, hyponatremia and COPD exacerbation. The white blood count is 60.6. The sodium has risen from 05/02 up to 127. Her sputum culture is showing moderate growth of mixed keisha. No mold this time. Antibiotics were started yesterday. She tells me that she drinks a lot of water and does not use much salt in her diet. This is not our understanding from our 1st interview with her and her daughter originally. This would explain the severe hyponatremia. We will add salt tablets. She will be going to [facility] in about 2 days. This time she agrees to using home health RN visits. Exam Vital Signs (past 8 hours): - 04/27/24 04:00 04/27/24 04:02 Temperature 98.6 F Pulse Rate 83 84 Respiratory Rate 22 24 Blood Pressure 167/77 H Pulse Oximetry 93 95 Oxygen Delivery Method Nasal Cannula Oxygen Flow Rate 1 1 Fraction of Inspired Oxygen 24 Fraction of Inspired Oxygen 24 SaO2/FiO2 Ratio 400 Oxygen Delivery Method Nasal Cannula Oxygen Flow Rate 1 Narrative Exam Narrative: Alert and oriented x3. Feeling somewhat better. No apparent distress. Heart is mildly tachycardic, regular rhythm, no murmur Lungs are clear to auscultation bilaterally Extremities have no ankle edema Objective Labs 04/27/24 04:20 04/27/24 04:20 Labs: Laboratory Results - last 24 hr 04/26/24 04/27/24 08:47 04:20 WBC 16.6 H RBC 4.36 Hgb 13.1 Hct 39.1 MCV 89.7 MCH 30.1 MCHC 33.6 RDW 13.6 Plt Count 615 H Neut % (Auto) 89.0 H Lymph % (Auto) 4.4 L [place] % (Auto) 6.6 Eos % (Auto) 0.0 L Baso % (Auto) 0.0 Neut # (Auto) 65781 H Lymph # (Auto) 700 L [place] # (Auto) 1100 H Eos # (Auto) 0 Baso # (Auto) 0 Sodium 127 L 127 L Potassium 5.0 4.7 Chloride 95 L 93 L Carbon Dioxide 27 29 BUN 33 H 39 H Creatinine 0.68 0.76 Estimated GFR > 60 > 60 BUN/Creatinine Ratio 48.5 H 51.3 H Glucose 136 H 130 H Calcium 9.3 9.2 [facility] Medical History Benign essential HTN COPD (chronic obstructive pulmonary disease) Macular degeneration Tinnitus Hearing loss Surgical History Anesthesia History of surgery on wrist (~2017) Family History Father History of emphysema Mother Alzheimer's disease Brother No problems noted. Social History household members: none Smoking Status: Former smoker Tobacco: How many years used: 30 alcohol intake: current substance use type: does not use Assessment & Plan Assessment & Plan narrative: This is an 84-year-old female who was just released from the hospital 2 days ago after completing her Influenza A Tamiflu. She was prescribed 30 mg of prednisone daily along with fluconazole for ?mold? on her sputum culture but otherwise was continued on her low-dose Lasix and usual small amount of medications. She does not normally eat or drink very much and that seemed to have been exacerbated this week at the assisted living [facility]. Her daughter brought her back today to the ED because of increasing edema and trouble breathing. Testing documented a sodium level of 109. Severe hyponatremia, present on admission. -Two days prior to admission her sodium was 131. On admission it was 109. -after 100 mL bolus of 3% saline her sodium level rises to 111. -after 50 ml bolus of 3% saline her sodium level is 112 -/17 sodium level is 115 -/18 sodium level is 118 -/19 sodium level is 125 -1/20 sodium level is 127 -the goal has been to raise her sodium level by 4-6 over 24 hours. -gave additional 100 mL bolus of 3% saline 04/25 -the etiology appears to be related to poor oral intake, Lasix and other unknown factors. No signs of Lung Cancer on CT. -04/27/2024 patient indicates ?I drink a lot of water, I love water?. Salt tablets will be added to her daily routine. COPD with current exacerbation -chest CT negative for PE. Small bilateral posterior lower lobe mixed interstitial and small left base alveolar opacities most suggestive of an infectious or inflammatory process -recent influenza A which she seems to have recovered from. -Improvements appear to be stalling so added Ceftriaxone as there were GNB on the sputum gram stain. -Solumedrol IV -Albuterol -BNP 5530 but symptoms point towards COPD. Add Lasix if not responding. Hypertension -continue losartan and furosemide ?Mold? in recent sputum culture -holding fluconazole due to lack of symptoms and possible relationship to the hyponatremia -successful at obtaining sputum for repeat culture on 04/25 -sputum culture is moderate growth mixed keisha Disposition: Likely will return to her assisted living facility. She is now agreeable to home health RN visits. Enoxaparin for DVT prevention Her daughter is her backup decision maker. She is Full Code. Time-Based Coding :: [TOTAL MINUTES] spent with patient and on the chart (including review of chart, obtaining history, exam, reviewing outside data, placing orders, documenting exam and treatment plan, and counseling patient) on [DATE]. Quality VTE Deep Vein Thrombosis/Pulmonary Embolism Present on Admission: No
[2024-04-27] MEDS: LOSARTAN 50 MG TABLET PO (08:16)
[2024-04-27] MEDS: ACETAMINOPHEN 325 MG TABLET 650 MG PO ×3 (08:16→21:43)
[2024-04-27] MEDS: ENOXAPARIN 40 MG/0.4 ML SYRINGE SUBCUT (08:17)
[2024-04-27] MEDS: SODIUM CHLORIDE 0.9% FLUSH 10 ML IV ×3 (08:17→20:20)
--- NOTE | 2024-04-27 10:26 | CM.DPNOTE ---
Addendum entered by HARVEY Gomez 04/27/24 10:39: From Leonie at [facility], able to accept pt. HOGSHEAD STRIPPER updated pt and gave copy of brochure. pt appreciative and sweet. SL Original Note: DCP note HOGSHEAD STRIPPER reviewed EMR. Per provider in morning rounds, anticipate another two days before pt is stable to nm. Per PT, rec HH. Per RN, pt could likely benefit from NURSE RESEARCH shower aid as well with . HOGSHEAD STRIPPER met with pt in room. Pleasant and chatty, agreeable to HH, no preference for agency. asked that this HOGSHEAD STRIPPER update dtr Bri. HOGSHEAD STRIPPER spoke with dtr [facility] ([phone]) about dcp. in agreement with . no preference for agency. dtr will be transport home when pt is stable. Referral sent to [facility] based on rotating vendor calendar. HOGSHEAD STRIPPER lvm with Leonie at [facility] notifying of referral. Acceptance pending. HOGSHEAD STRIPPER completed f2f and order. TCM team will need to be notified at nm. P: CLAUDETTE 04/29 home to [facility] with dtr to transport and [facility] to follow pending official acceptance (RN/PT/OT/NURSE RESEARCH). CM team will continue to follow as needed HARVEY Gomez
--- NOTE | 2024-04-27 10:49 | DIET.CONS ---
Dietary Consultation Note Admission Date: 04/23/2024 15:22 Assessment: RD f/u Pt with improved recorded PO intakes averaging 80%. Per DFM, meals are full portion sizes and full meals (i.e meat/poultry, carb, veg/side, dessert, drink). Met with pt at bedside. Pt reports improved appetite now. Reports decreased appetite previously for a week with small meals/portions. Before this past week or 2, her usual intake is just 1 meal per day at lunch. She plans to start implementing a dinner when she goes back to her [facility]. Reports they make and will bring dinner to her. Encouraged this plan to support weight gain. Pt noted her food allergy of shell beans. Per chart, allergy already entered in. Ht: 167.64 cm Wt: 54.431 kg BMI: 19.3 UBW: 56.245 kg on 10/22/23 (-3% weight loss, non-severe) Last BM: 04/25/24 (04/25/24 06:00) MNA: 8 Kevan Score: 21 Diet: 04/23/24 Dinner General (Regular) Diet Diet Modifications: Nutrition Percent Meal Consumed 75% 04/26/24 18:00 Percent Meal Consumed 50% 04/26/24 14:25 Percent Meal Consumed 90% 04/25/24 17:40 Percent Meal Consumed 90% 04/25/24 12:23 Labs: RBC 4.36 X10^6/uL (4.0-5.2) 04/27/24 04:20 Hgb 13.1 g/dL (12.0-16.0) 04/27/24 04:20 Hct 39.1 % (36-46) 04/27/24 04:20 Creatinine 0.76 mg/dL (0.52-1.04) 04/27/24 04:20 Lactate 1.3 mmol/L (0.7-2.1) 04/23/24 12:36 NT-Pro-B Natriuret Pep 5530 pg/mL (<450) H 04/23/24 12:36 Nutrition Diagnosis: Underweight BMI for age r/t inadequate oral intake aeb BMI 19.3, pt reports only 1 meal per day and a decreased appetite with <75% EER for 1-2 weeks Interventions: 1. Pt to aim for 2 meals per day over 1, >75% intake of both meals, and snack as needed between. EER: [id number] kcals (30-33 kcals/kg per BMI) 55 g protein (1g/kg per age) Monitoring/Evaluations: PO intakes and meal composition Electronically Signed by: Emerita Garcia 04/27/24 10:49 Clinical Dietitian [address] [id number]
[2024-04-27] MEDS: cefTRIAXone 1,000 MG in SODIUM CHLORIDE 0.9% 100 ML 200 MG IV (10:58)
[2024-04-27] MEDS: SODIUM CHLORIDE 1,000 MG TABLET 1000 MG PO (10:58)
--- NOTE | 2024-04-27 11:33 | PT-IP ANOTE ---
Pt adamantly refuses PT and getting OOB while she has IV running. Con't PT efforts.
[2024-04-27] MEDS: DOCUSATE 100 MG CAPSULE PO (12:20)
[2024-04-27] MEDS: SENNOSIDES 8.6 MG TABLET PO (12:20)
[2024-04-27] MEDS: CODEINE/GUAIFENESIN LIQUID 5ML UDC 5 ML PO (21:44)
[2024-04-28] VITALS (25 sets, daily range): BP systolic 153–189; BP diastolic 72–123; PULSE 73–117; RESP 10–38; TEMP 36.4–36.8; O2SAT 80–99
[2024-04-28] MEDS: methylPREDNISolone 125 MG/2 ML VIAL 60 MG IV ×3 (02:39→16:55)
[2024-04-28] MEDS: CEFEPIME 2 GM in SODIUM CHLORIDE 0.9% 100 ML IV ×2 (02:40→16:55)
[2024-04-28] MEDS: ALBUTEROL 2.5 MG/3 ML NEB (ADULT) INH ×4 (03:18→20:38)
[2024-04-28 05:19] LABS: Add Manual Diff / Slide Review NO; Basophils Absolute Auto 0 /uL (0-100); Basophils Percent Auto 0.1 % (0-2); Eosinophils Absolute Auto 0 /uL (0-450); Hematocrit 34.3 % (36-46); Hemoglobin 11.9 g/dL (12.0-16.0); Lymphocytes Absolute Auto 600 /uL (1100-4500); Lymphocytes Percent Auto 4.7 % (25-40); Mean Corpuscular HGB Conc 34.7 % (30-36); Mean Corpuscular Hemoglobin 31.2 PG (26-34); Mean Corpuscular Volume 89.7 fL (80-100); Monocytes Absolute Auto 900 /uL (0-900); Monocytes Percent Auto 7.6 % (3-14); Neutrophils Absolute Auto 10800 /uL (1500-7000); Neutrophils Percent Auto 87.6 % (50-75); Platelet Count 499 X10^3/uL (150-400); Red Blood Cell Count 3.83 X10^6/uL (4.0-5.2); Red Cell Distribution Width 13.6 % (11.6-14.8); White Blood Cell Count 12.3 X10^3/uL (4.5-11.0)
[2024-04-28 05:28] LABS: BUN Creatinine Ratio 50.7 (6-22); Blood Urea Nitrogen 38 mg/dL (7-17); Calcium 9.2 mg/dL (8.4-10.2); Carbon Dioxide 29 mmol/L (22-32); Chloride 94 mmol/L (98-107); Estimated Glomerular Filt Rate > 60 mL/min (>60); Glucose 121 mg/dL (80-110); HEMOLYSIS < 15 (0-50); Potassium 5.1 mmol/L (3.4-5.1); Sodium 127 mmol/L (137-145)
--- NOTE | 2024-04-28 08:09 | PM.PN.1 ---
Subjective Subjective Date Patient Seen: 04/28/24 Interval history: She is seen today to follow-up her pneumonia, COPD exacerbation and severe hyponatremia. Her white blood count has improved, down to 12.3. The hemoglobin is 11.9. The platelets have improved, down to 499. The sodium is stable at 127. The potassium is 5.1 and the creatinine is normal at 0.75. She says she is starting to feel better and her appetite is coming back. She has been on IV cefepime since admission. Exam Vital Signs (past 8 hours): - 04/28/24 02:00 04/28/24 03:18 04/28/24 03:54 Temperature Pulse Rate 79 84 89 Respiratory Rate 20 18 26 H Blood Pressure Pulse Oximetry 97 97 96 Oxygen Delivery Method Nasal Cannula Oxygen Flow Rate 1 Fraction of Inspired Oxygen 24 04/28/24 03:54 04/28/24 03:55 04/28/24 03:55 Temperature Pulse Rate 85 Respiratory Rate 18 Blood Pressure 189/81 H 170/77 H Pulse Oximetry 96 Oxygen Delivery Method Oxygen Flow Rate Fraction of Inspired Oxygen 04/28/24 04:00 04/28/24 04:00 04/28/24 06:00 Temperature 97.6 F Pulse Rate 88 86 75 Respiratory Rate 18 28 H 16 Blood Pressure 170/77 H Pulse Oximetry 96 96 97 Oxygen Delivery Method Oxygen Flow Rate 1 Fraction of Inspired Oxygen 04/28/24 07:16 Temperature Pulse Rate 73 Respiratory Rate Blood Pressure Pulse Oximetry 99 Oxygen Delivery Method Nasal Cannula Oxygen Flow Rate 1 Fraction of Inspired Oxygen 24 Fraction of Inspired Oxygen 24 SaO2/FiO2 Ratio 412 Oxygen Delivery Method Nasal Cannula Oxygen Flow Rate 1 Narrative Exam Narrative: She is alert and oriented x3. No apparent distress She remains hard of hearing. Her facial appearance is more healthy. Heart is regular rate and rhythm without murmur Lungs are clear to auscultation bilaterally Extremities have no ankle edema Objective Labs 04/28/24 03:50 04/28/24 03:50 Labs: Laboratory Results - last 24 hr 04/28/24 03:50 WBC 12.3 H RBC 3.83 L Hgb 11.9 L Hct 34.3 L MCV 89.7 MCH 31.2 MCHC 34.7 RDW 13.6 Plt Count 499 H Neut % (Auto) 87.6 H Lymph % (Auto) 4.7 L Stevens % (Auto) 7.6 Eos % (Auto) 0.0 L Baso % (Auto) 0.1 Neut # (Auto) 99979 H Lymph # (Auto) 600 L Stevens # (Auto) 900 Eos # (Auto) 0 Baso # (Auto) 0 Sodium 127 L Potassium 5.1 Chloride 94 L Carbon Dioxide 29 BUN 38 H Creatinine 0.75 Estimated GFR > 60 BUN/Creatinine Ratio 50.7 H Glucose 121 H Calcium 9.2 PFSH Medical History Benign essential HTN COPD (chronic obstructive pulmonary disease) Macular degeneration Tinnitus Hearing loss Surgical History Anesthesia History of surgery on wrist (~2017) Family History Father History of emphysema Mother Alzheimer's disease Brother No problems noted. Social History household members: none Smoking Status: Former smoker Tobacco: How many years used: 30 alcohol intake: current substance use type: does not use Assessment & Plan Assessment & Plan narrative: This is an 84-year-old female who was just released from the hospital 2 days ago after completing her Influenza A Tamiflu. She was prescribed 30 mg of prednisone daily along with fluconazole for ?mold? on her sputum culture but otherwise was continued on her low-dose Lasix and usual small amount of medications. She does not normally eat or drink very much and that seemed to have been exacerbated this week at the assisted living community. Her daughter brought her back today to the ED because of increasing edema and trouble breathing. Testing documented a sodium level of 109. Severe hyponatremia, present on admission. -Two days prior to admission her sodium was 131. On admission it was 109. -after 100 mL bolus of 3% saline her sodium level rises to 111. -after 50 ml bolus of 3% saline her sodium level is 112 -04/24 sodium level is 115 -04/25 sodium level is 118 -04/26 sodium level is 125 -04/27 and 04/28 sodium level is 127 -the goal has been to raise her sodium level by 4-6 over 24 hours. -gave additional 100 mL bolus of 3% saline 04/25 -the etiology appears to be related to poor oral intake, Lasix and other unknown factors. No signs of Lung Cancer on CT. -04/27/2024 patient indicates ?I drink a lot of water, I love water?. Salt tablets added. COPD with current exacerbation -chest CT negative for PE. Small bilateral posterior lower lobe mixed interstitial and small left base alveolar opacities most suggestive of an infectious or inflammatory process -recent influenza A which she seems to have recovered from. -Cefepime IV -Solumedrol IV -Albuterol -BNP 5530 but symptoms point towards COPD. Resumed home Lasix PO on 04/28/24. Hypertension -continue losartan and furosemide ?Mold? in recent sputum culture -holding fluconazole due to lack of symptoms and possible relationship to the hyponatremia -successful at obtaining sputum for repeat culture on 04/25 -sputum culture is moderate growth mixed keisha Disposition: Likely will return to her assisted living facility in 1-2 days. She is now agreeable to home health RN visits. Enoxaparin for DVT prevention Her daughter is her backup decision maker. She is Full Code. Time-Based Coding :: [TOTAL MINUTES] spent with patient and on the chart (including review of chart, obtaining history, exam, reviewing outside data, placing orders, documenting exam and treatment plan, and counseling patient) on [DATE]. Quality VTE Deep Vein Thrombosis/Pulmonary Embolism Present on Admission: No
--- NOTE | 2024-04-28 08:14 | PT.IPTN ---
Current Diagnoses Hypo-osmolality and hyponatremia (04/23/24) Physical Therapy Treatment Note M2 PT-IP Current Condition Start: 04/26/24 09:37 Freq: NEEDED Status: Active Protocol: Document 04/28/24 07:59 SP (Rec: 04/28/24 08:31 SP [id number]) Physical Therapy Current Condition Current Condition Evaluation Date 04/26/24 Treatment Diagnosis Return to hospital after adm for influenza A, readm for low sodium M3 PT-IP Subjective Start: 04/26/24 09:37 Freq: NEEDED Status: Active Protocol: Document 04/28/24 07:59 SP (Rec: 04/28/24 08:31 SP [id number]) Subjective Physical Therapy Visit Type Type Treatment Note Visit Start Time 07:59 Visit Stop Time 08:14 Number of WEB DEVELOPMENT CONSULTANT Visits 1 Physical Therapy Visit Comments Patient Comments Pt agreeable to working with WEB DEVELOPMENT CONSULTANT. Patient Goals Return home. Therapy Pain Assessment Pain Present Pain Present Denied Pain M4 PT-IP Mobility and Gait Start: 04/26/24 09:37 Freq: NEEDED Status: Active Protocol: Document 04/28/24 07:59 SP (Rec: 04/28/24 08:31 SP [id number]) PT-Bed Mobility Assessment Supine to Sit Supine to Sit Independent Scooting Scooting to Edge of Bed Independent PT-Transfer Assessment Sit to and From Stand Sit to and from Stand Standby Assistance,Use of Upper Extremities Equipment Transfer Assistive Device None,Gait Belt Orthotic/Prosthetic Devices or Brace: No Transfers Transfer Destination Chair Transfer Technique ambulated with no AD Transfer Ability Level of Assist Standby Assistance Comments Mobility Comments I with bed mobility. Complete STS with light use BUEs on bed stability. Gait around room to door and back x2 laps approx 60 ft helping manage O2 , heart monitor & pulse oximeter tubing SBA, noted trunk weight shift gait but no LOB or deviations, occ counter contact but report out of habit. She continues to report can borroow FWW if needed longer distances from neighbor if needed for energy conservation. Pt good at verbalizing and demonstrating slow gait, breath during mobility. SaO2 91% on1L during mobility, BP LUE automated 181/123 HR 102 when returned to chair, no SOB. 1 Min rest BP 173/99 HR 107 SaO2 97% 1L. Pt was up in chair with call light and all needs in reach before left. WEB DEVELOPMENT CONSULTANT notified nursing hypertension. Recommending HHPT with assist available. Gait Assessment Gait Gait Assistance Required: Standby Assistance Distance (Feet) 60 Able to Maintain Weight Bearing Status Yes During Gait Assistive Devices Assistive Device None Gait Deviations General Gait Pattern Antalgic,Flexed Trunk,Narrow Based Gait Factors Limiting Gait Function Factors Limiting Gait Function Decreased Activity Tolerance Comments Gait Comments see mobility comments Stair Climbing Assessment Comments Stair Climbing Comments no stairs at [facility] need to assess. PT-Balance Assessment Sitting Balance and Reactions Static Sitting Balance Ability Normal Dynamic Sitting Balance Ability Normal Standing Balance and Reactions Static Standing Balance Ability Good Dynamic Standing Balance Ability Good Device Used none M5 PT-IP Objective Assessments Start: 04/26/24 09:37 Freq: NEEDED Status: Active Protocol: Document 04/26/24 10:50 MB (Rec: 04/26/24 11:10 MB [id number]) Orientation Orientation/Cognition Level of Alertness Alert Orientation Name,Age,Birthday,Month,Date, Year,Day of Week,Place, Situation Language Function Ability Hard of Hearing Safety Awareness Decreased Safety Awareness Memory Description No Deficits Noted Gross Range of Motion Upper Extremity ROM Impairments Defer to OT Lower Extremity ROM Assessment Within Functional Limits Strength Lower Extremity Strength Assessment Within Functional Limits Coordination Assessment Assessment Coordination Comments NT Sensation Assessment Comments Sensation Comments NT Muscle Tone Muscle Tone WNL Yes M6 PT-IP Treatment Start: 04/26/24 09:37 Freq: NEEDED Status: Active Protocol: Document 04/26/24 10:50 MB (Rec: 04/26/24 11:10 MB [id number]) Physical Therapy Treatment Education Education Provided Safety M7 PT-IP Assessment and Plan Start: 04/26/24 09:37 Freq: NEEDED Status: Active Protocol: Document 04/28/24 07:59 SP (Rec: 04/28/24 08:31 SP [id number]) PT Summary Assessment and Plan Potential Rehabilitation Potential Good Status of Condition at Evaluation Evolving Summary Impairments Balance,Bed Mobility,Transfers ,Gait,Activity Tolerance Progress Towards Goals Slow Progress due to Medical Issues,Slow Progress due to Activity Tolerance Assessment Summary Pt I bed mob, sBA due to trunk sways but no LOB, ed for breath and energy conservation during gait no AD but suggested use of FWW if needed and stated can borrow from neighbor if needed longer distances in [facility], she helps manage tubing around room 60 ft. Hypertensive BP, decreased with seated rest. Nursing notified for safe awareness. Recommending HHPT with assist available. Goals Bed Mobility Goal Independent Transfer Goal Independent Gait Goal Independent Gait Distance 100 Other Goals Attempt to progress gait to no AD given that is her baseline . Days to Meet Goals 5 Frequency of Treatment Frequency Of Treatment Once a Day Treatment Plan Physical Therapy Treatment Plan Bed Mobility Training,Transfer Training,Gait Training, Therapeutic Exercise,Balance Retraining,Discharge Planning, Hot or Cold Pack,Neuromuscular Re-ed,Coordination Retraining ,Manual Therapy Other Recommendations and Next Treatment STS, standing strength ex, Focus further distance gait LRAD, ed breath & energy conservation. Precautions Other Precautions Droplet (completed treatment for influenza A per chart) Recommendations To Nursing Amount of Assist Needed Standby Assistance Discharge Recommendations PT Discharge Recommendations Home with Assistance,Home Health Transportation Needs at Discharge Private Vehicle
[2024-04-28] MEDS: ENOXAPARIN 40 MG/0.4 ML SYRINGE SUBCUT (08:24)
[2024-04-28] MEDS: SODIUM CHLORIDE 1,000 MG TABLET 1000 MG PO (08:24)
[2024-04-28] MEDS: LOSARTAN 50 MG TABLET PO (08:24)
[2024-04-28] MEDS: FUROSEMIDE 20 MG TABLET PO (08:24)
[2024-04-28] MEDS: SODIUM CHLORIDE 0.9% FLUSH 10 ML IV ×2 (08:24→21:34)
[2024-04-28] MEDS: CODEINE/GUAIFENESIN LIQUID 5ML UDC 5 ML PO ×2 (08:28→20:47)
[2024-04-28] MEDS: ACETAMINOPHEN 325 MG TABLET 650 MG PO ×2 (08:28→20:48)
--- NOTE | 2024-04-28 11:22 | CM.DPNOTE ---
DCP note Per hospitalist in morning rounds, anticipate another day or two before stable to dc home with HH. another day of IV abx and monitoring sodium. Per PT, pt did better today than previous days and is getting stronger. Per RN, plans to update dtr Bri via phone no plans to dc pt today. Per RN, no other new CM needs identified at this time. HOG GRADER updated Leonie at [facility] with anticipated dc timeline. P: CLAUDETTE 04/29 vs 04/30 home to [facility] with dtr Bri to transport and [facility] to follow (RN/PT/OT/BROKE MAN). Need to updated TCM at dc. CM team will continue to follow as needed HARVEY Gomez
[2024-04-28] MEDS: DOCUSATE 100 MG CAPSULE PO (20:48)
[2024-04-28] MEDS: SENNOSIDES 8.6 MG TABLET PO (20:48)
[2024-04-28] MEDS: MIRTAZAPINE 15 MG TABLET 7.5 MG PO (21:33)
[2024-04-29] VITALS (16 sets, daily range): BP systolic 162–184; BP diastolic 82–97; PULSE 74–106; RESP 12–39; TEMP 36.6–36.8; O2SAT 84–95
[2024-04-29] MEDS: methylPREDNISolone 125 MG/2 ML VIAL 60 MG IV ×3 (01:35→17:35)
[2024-04-29] MEDS: ALBUTEROL 2.5 MG/3 ML NEB (ADULT) INH ×4 (02:21→20:34)
[2024-04-29] MEDS: CEFEPIME 2 GM in SODIUM CHLORIDE 0.9% 100 ML IV ×2 (02:56→16:42)
[2024-04-29] MEDS: CODEINE/GUAIFENESIN LIQUID 5ML UDC 5 ML PO ×3 (03:21→20:44)
--- NOTE | 2024-04-29 08:15 | PM.PN.1 ---
Subjective Subjective Date Patient Seen: 04/29/24 Interval history: She is seen today to follow-up her hyponatremia, pneumonia and COPD exacerbation. The blood pressure is 1 some 2/83. The sodium will be rechecked tomorrow. It was 127 yesterday. She will probably return to [facility] TOMORROW. THE LOSARTAN WILL BE INCREASED FROM 50 UP TO 100 MG DAILY. She has been started on salt tablets. Exam Vital Signs (past 8 hours): - 04/29/24 04:00 04/29/24 07:56 Temperature 97.9 F Pulse Rate 92 H 82 Respiratory Rate 21 16 Blood Pressure 172/83 H Pulse Oximetry 94 95 Oxygen Delivery Method Room Air Oxygen Flow Rate 0 Fraction of Inspired Oxygen 20 SaO2/FiO2 Ratio 465 Oxygen Delivery Method Room Air Oxygen Flow Rate 0 Narrative Exam Narrative: Alert and oriented x3. No apparent distress. Right maxillary bony prominence is noted today. It seems to be more asymmetric than usual. Her facial subcutaneous tissue wasting seems to be improving with steroid therapy and better nutrition. Heart is regular rate rhythm without murmur Lungs are clear to auscultation bilaterally Extremities have no ankle edema Objective Labs 04/28/24 03:50 04/28/24 03:50 PFSH Medical History Benign essential HTN COPD (chronic obstructive pulmonary disease) Macular degeneration Tinnitus Hearing loss Surgical History Anesthesia History of surgery on wrist (~2017) Family History Father History of emphysema Mother Alzheimer's disease Brother No problems noted. Social History household members: none Smoking Status: Former smoker Tobacco: How many years used: 30 alcohol intake: current substance use type: does not use Assessment & Plan Assessment & Plan narrative: This is an 84-year-old female who was just released from the hospital 2 days ago after completing her Influenza A Tamiflu. She was prescribed 30 mg of prednisone daily along with fluconazole for ?mold? on her sputum culture but otherwise was continued on her low-dose Lasix and usual small amount of medications. She does not normally eat or drink very much and that seemed to have been exacerbated this week at the assisted living formerly [facility]. Her daughter brought her back today to the ED because of increasing edema and trouble breathing. Testing documented a sodium level of 109. Severe hyponatremia, present on admission. -Two days prior to admission her sodium was 131. On admission it was 109. -after 100 mL bolus of 3% saline her sodium level rises to 111. -after 50 ml bolus of 3% saline her sodium level is 112 -04/24 sodium level is 115 -04/25 sodium level is 118 -04/26 sodium level is 125 -04/27 and 04/28 sodium level is 127 -the goal has been to raise her sodium level by 4-6 over 24 hours. -gave additional 100 mL bolus of 3% saline 04/25 -the etiology appears to be related to poor oral intake, Lasix and other unknown factors. No signs of Lung Cancer on CT. -04/27/2024 patient indicates ?I drink a lot of water, I love water?. -Salt tablets added. COPD with current exacerbation -chest CT negative for PE. Small bilateral posterior lower lobe mixed interstitial and small left base alveolar opacities most suggestive of an infectious or inflammatory process -recent influenza A which she seems to have recovered from. -Cefepime IV -Solumedrol IV -Albuterol -BNP 5530 but symptoms point towards COPD. Resumed home Lasix PO on 04/28/24. Hypertension -continue losartan and furosemide ?Mold? in recent sputum culture -holding fluconazole due to lack of symptoms and possible relationship to the hyponatremia -successful at obtaining sputum for repeat culture on 04/25 -sputum culture is moderate growth mixed keisha Disposition: Likely will return to her assisted living facility 04/30/24. She is now agreeable to home health RN visits. Enoxaparin for DVT prevention Her daughter is her backup decision maker. She is Full Code. Time-Based Coding :: [TOTAL MINUTES] spent with patient and on the chart (including review of chart, obtaining history, exam, reviewing outside data, placing orders, documenting exam and treatment plan, and counseling patient) on [DATE]. Quality VTE Deep Vein Thrombosis/Pulmonary Embolism Present on Admission: No
[2024-04-29] MEDS: FUROSEMIDE 20 MG TABLET PO (08:35)
[2024-04-29] MEDS: ENOXAPARIN 40 MG/0.4 ML SYRINGE SUBCUT (08:35)
[2024-04-29] MEDS: LOSARTAN 50 MG TABLET 100 MG PO (08:35)
[2024-04-29] MEDS: ACETAMINOPHEN 325 MG TABLET 650 MG PO ×2 (08:36→21:19)
[2024-04-29] MEDS: SODIUM CHLORIDE 1,000 MG TABLET 1000 MG PO (08:37)
[2024-04-29] MEDS: SODIUM CHLORIDE 0.9% FLUSH 10 ML IV ×2 (08:37→20:35)
--- NOTE | 2024-04-29 13:43 | PT-IP ANOTE ---
Pt declined working with CRIMINALIST TECHNICIAN. She stated I just got up and went around the room and to the bathroom with nursing and tired out. I did my leg exercises in sitting earlier, I am good for today. You can come back tomorrow? Pt wasn't seen, will continue to assess progress tomorrow.
[2024-04-29] MEDS: SENNOSIDES 8.6 MG TABLET PO (20:34)
[2024-04-29] MEDS: MIRTAZAPINE 15 MG TABLET 7.5 MG PO (20:34)
[2024-04-29] MEDS: DOCUSATE 100 MG CAPSULE PO (20:34)
[2024-04-30] MEDS: ALBUTEROL 2.5 MG/3 ML NEB (ADULT) INH ×2 (02:05→07:52)
[2024-04-30] MEDS: methylPREDNISolone 125 MG/2 ML VIAL 60 MG IV (02:06)
[2024-04-30] MEDS: CEFEPIME 2 GM in SODIUM CHLORIDE 0.9% 100 ML IV (03:00)
[2024-04-30 04:00] VITALS: BP 185/85; PULSE 88; RESP 18; TEMP 36.8; O2SAT 94
[2024-04-30 05:14] LABS: BUN Creatinine Ratio 58.2 (6-22); Blood Urea Nitrogen 39 mg/dL (7-17); Calcium 9.1 mg/dL (8.4-10.2); Carbon Dioxide 26 mmol/L (22-32); Chloride 95 mmol/L (98-107); Estimated Glomerular Filt Rate > 60 mL/min (>60); Glucose 123 mg/dL (80-110); HEMOLYSIS 16 (0-50); Potassium 4.4 mmol/L (3.4-5.1); Sodium 126 mmol/L (137-145)
[2024-04-30 07:52] VITALS: PULSE 84; RESP 20; O2SAT 96
[2024-04-30 08:09] VITALS: BP 186/87; PULSE 96
[2024-04-30] MEDS: DOCUSATE 100 MG CAPSULE PO (08:09)
[2024-04-30] MEDS: LOSARTAN 50 MG TABLET 100 MG PO (08:09)
[2024-04-30] MEDS: SENNOSIDES 8.6 MG TABLET PO (08:09)
[2024-04-30] MEDS: FUROSEMIDE 20 MG TABLET PO (08:09)
[2024-04-30] MEDS: SODIUM CHLORIDE 1,000 MG TABLET 1000 MG PO (08:09)
[2024-04-30] MEDS: SODIUM CHLORIDE 0.9% FLUSH 10 ML IV (08:11)
[2024-04-30] MEDS: ENOXAPARIN 40 MG/0.4 ML SYRINGE SUBCUT (08:11)
[2024-04-30] MEDS: ACETAMINOPHEN 325 MG TABLET 650 MG PO (08:17)
--- NOTE | 2024-04-30 10:54 | P.DS_ITS ---
History of Present Illness History of Present Illness Chief complaint: SOB, swelling in legs and feet, returning pt Narrative: From H&P: This is an 84-year-old female with COPD, hypertension, macular degeneration, hearing loss and recent influenza A infection. She was just released from the hospital 2 days ago after completing her Tamiflu. She was prescribed 30 mg of prednisone daily along with fluconazole for ?mold? on her sputum culture but otherwise was continued on her low-dose Lasix and usual small amount of medications. She does not normally eat or drink very much and that seemed to have been exacerbated this week at the [facility]. Her daughter brought her back today to the ED because of increasing edema and trouble breathing. Testing documented a sodium level of 109. In the ED she was given a 100 mL 3% saline bolus and the sodium level came up to 111. She has never had severe hyponatremia before. Her recent sodium levels are in the 129-131 range. She has had no seizures, myoclonus or tetany. She has no chest pain, vomiting or diarrhea. She has not been drinking excessive amounts of liquids. Discharge Providers Provider Date of admission: 04/23/24 15:22 Discharge Date: 04/30/24 Primary care physician: Anoop Partida DO Consults: 04/24/24 16:39 Consult to Dietitian, Adult Routine Comment: Reason For Exam: Malnourished 04/25/24 10:35 Consult to Physical Therapy Evaluate & Treat Comment: Physician Instructions: Evaluate and Treat 04/27/24 10:25 Consult to Home Health Routine Comment: Reason For Exam: RN/PT/OT/BOOKMOBILE CLERK Discharge provider: Jamil Arevalo MD Summary Hospital Course Discharge Diagnosis: 1. Hyponatremia, present on admission and improved. 2. COPD exacerbation, present on admission and improved. 3. Recent influenza a, present on admission and improved. 4. Hypertension, present on admission and stable. Hospital Course: She was admitted and treated for hyponatremia and COPD exacerbation. She received bronchodilators, and IV steroids. She had recently had influenza a. She was also treated with saline and did improve with regards to her sodium. Ultimately salt tablets were also started. She did admit to eating very little recently and also had been given a prescription for diuretic. Both of these may have contributed to her hyponatremia. On the day of discharge she had her usual 1+ chronic leg edema, and denied any concerns about her level of breathing or comfort of breathing. She was enthusiastic about returning home to her environment and home health is also listed for ongoing care needs. In addition we will recheck labs with home health in about 5 days. This would include a basic metabolic panel. Status at Discharge Cognitive/behavioral status at discharge: oriented Functional status at discharge: uses cane/walker Overall status at discharge: patient is progressing back to baseline Time Spent with Patient Time spent: Greater than 30 minutes Exam Vital Signs (past 8 hours): - 04/30/24 04:00 04/30/24 07:52 04/30/24 08:00 Temperature 98.3 F Pulse Rate 88 84 Respiratory Rate 18 20 Blood Pressure 185/85 H Pulse Oximetry 94 96 Oxygen Delivery Method Room Air Room Air Oxygen Flow Rate 0 04/30/24 08:09 Temperature Pulse Rate 96 H Respiratory Rate Blood Pressure 186/87 H Pulse Oximetry Oxygen Delivery Method Oxygen Flow Rate Fraction of Inspired Oxygen 20 SaO2/FiO2 Ratio 465 Oxygen Delivery Method Room Air Oxygen Flow Rate 0 Narrative Exam Narrative: NAD, alert and oriented. Fluent speech. Lungs are notable for scattered expiratory wheezing, normal rate and effort. Heart is regular, no murmur gallop or rub. Abdomen is soft, non distended. Extremities are with 1+ edema. Objective ECG Impression: Sinus rhythm with premature supraventricular complexes Cannot rule out Anterior infarct , age undetermined Imaging Multiple studies:: Radiologist's impression: Chest CTA: No pulmonary embolus. Small bilateral posterior lower lobe mixed interstitial and small left base alveolar opacities most suggestive of an infectious or inflammatory process, as are the minimal anterior ground-glass opacities. [id number] emphysematous change. Ascending aortic aneurysm. Consider surveillance. Leg ultrasound: No findings of deep venous thrombosis in either lower extremity. Chest x-ray: No acute cardiopulmonary abnormality is seen. Labs 04/28/24 03:50 04/30/24 04:10 Labs: Laboratory Results - last 24 hr 04/30/24 04:10 Sodium 126 L Potassium 4.4 Chloride 95 L Carbon Dioxide 26 BUN 39 H Creatinine 0.67 Estimated GFR > 60 BUN/Creatinine Ratio 58.2 H Glucose 123 H Calcium 9.1 PFSH Medical History Benign essential HTN COPD (chronic obstructive pulmonary disease) Macular degeneration Tinnitus Hearing loss Surgical History Anesthesia History of surgery on wrist (~2017) Family History Father History of emphysema Mother Alzheimer's disease Brother No problems noted. Social History household members: none Smoking Status: Former smoker Tobacco: How many years used: 30 alcohol intake: current substance use type: does not use Discharge Assessment & Plan Assessment and Plan Assessment: 1. Hyponatremia, present on admission and improved. 2. COPD exacerbation, present on admission and improved. 3. Recent influenza a, present on admission and improved. 4. Hypertension, present on admission and stable. Plan of Treatment: Discharge home to [facility], with [facility]. Repeat basic metabolic panel with home health in approximately 5 days. Discharge Plan Discharge Plan Patient Disposition: Home Provider Discharge Comment: Stable for discharge back to [facility] with home health, [facility]. Repeat labs in approximately 4 days.BMP. Discharge orders & Medications Prescriptions: New losartan 50 mg Tablet 100 mg PO DAILY Qty: 30 1RF sodium chloride 1,000 mg Tablet,Soluble 1,000 mg PO DAILY Qty: 14 0RF Continued albuterol sulfate 2.5 mg /3 mL (0.083 %) solution for nebulization 2.5 mg inhalation Q6H Qty: 75 0RF albuterol sulfate 90 mcg/actuation HFA aerosol inhaler 2 puff inhalation Q6H PRN (Reason: wheezing) furosemide 20 mg tablet 20 mg PO DAILY Qty: 5 0RF fluticasone propion-salmeterol 250-50 mcg/dose blister with device 1 ea INHALATION BID benzonatate 100 mg Capsule 100 mg PO TID PRN (Reason: Cough) Qty: 20 0RF Discontinued losartan 50 mg tablet 50 mg PO DAILY prednisone 20 mg Tablet 30 mg PO DAILY Qty: 7 0RF oseltamivir [Tamiflu] 75 mg Capsule 75 mg PO BID Qty: 4 0RF fluconazole 100 mg tablet 100 mg PO DAILY Qty: 10 0RF Follow up/Referrals: Anoop Partida DO [Primary Care Provider] - Diet/Activity/Treatments Diet: Regular Activity: As tolerated. Visit Report/Discharge Packet Instructions: DI for Hyponatremia Stand Alone Forms: Patient Portal/API, Stroke Signs & Symptoms Discharge Data Primary Care Provider: Anoop Partida VTE Deep Vein Thrombosis/Pulmonary Embolism Present on Admission: No
--- NOTE | 2024-04-30 13:20 | PC.NURSE ---
Pt on RA, agreeable to discharge plan. Pt education provided, stroke s/s, follow up appt, worsening symptoms, and medication management. IV discontinued, telemetry removed. Pt wheeled via w/c to private vehicle at approx. 1310.
--- NOTE | 2024-04-30 15:45 | CM.DPNOTE ---
DC Note Discharge home back to [place], daughter transported, [facility] updated with patient's discharge. JON Longoria, kindly agreed to email [facility] completed and signed F2F and HH order. Transitions of Care nurses updated at PCP office. Plan: Discharge back to [place] via family transport. [facility] RN/PT/OT/DURAL MECHANIC JW
== END 2024-04-30 13:10 | disposition home health service (06) | DRG 640 ==
LOC: ED 12:37 → AC 15:22 → ICU 16:17
PROVIDERS: Admitting Provider Family Medicine; Emergency Provider Emergency Medicine; PCP Family Medicine; Referring Provider Emergency Medicine; Visit Provider Family Medicine
DX: E87.1 Hypo-osmolality and hyponatremia (principal); J18.9 Pneumonia, unspecified organism; J44.1 Chronic obstructive pulmonary disease with (acute) exacerbation; J44.0 Chronic obstructive pulmonary disease with (acute) lower respiratory infection; I10 Essential (primary) hypertension; H35.30 Unspecified macular degeneration; H91.90 Unspecified hearing loss, unspecified ear; Z87.891 Personal history of nicotine dependence; Z87.09 Personal history of other diseases of the respiratory system; Z88.0 Allergy status to penicillin
CPT/HCPCS: 36415; 71045; 71275; 80048; 80053; 83605; 83880; 84295; 84484; 85025; 85610; 87040; 87070; 87205; 87797; 93005; 93010; 93970; 94640; 97162; 97530; 99285; J0692; J0696; J1650; J2919; J7613; Q9967

== ENCOUNTER → 2024-05-05 09:56 | Outpatient (CLI) | payer MEDICARE, BC, SELFPAY ==
[2024-04-23 16:49] VITALS: BMI 19.3
[2024-05-05 11:09] LABS: BUN Creatinine Ratio 24.1 (6-22); Blood Urea Nitrogen 13 mg/dL (7-17); Calcium 8.3 mg/dL (8.4-10.2); Carbon Dioxide 32 mmol/L (22-32); Chloride 92 mmol/L (98-107); Estimated Glomerular Filt Rate > 60 mL/min (>60); Glucose 154 mg/dL (80-110); HEMOLYSIS < 15 (0-50); Potassium 3.6 mmol/L (3.4-5.1); Sodium 127 mmol/L (137-145)
== END ==
PROVIDERS: PCP Family Medicine; Referring Provider Family Medicine; Visit Provider Family Medicine
DX: E87.1 Hypo-osmolality and hyponatremia (principal); E87.5 Hyperkalemia; I50.9 Heart failure, unspecified
CPT/HCPCS: 36415; 80048

== ENCOUNTER → 2024-05-13 16:15 | Outpatient (CLI) | payer MEDICARE, BC, SELFPAY ==
[2024-04-23 16:49] VITALS: BMI 19.3
[2024-05-13 16:45] LABS: BUN Creatinine Ratio 22.4 (6-22); Blood Urea Nitrogen 15 mg/dL (7-17); Calcium 8.8 mg/dL (8.4-10.2); Carbon Dioxide 28 mmol/L (22-32); Chloride 88 mmol/L (98-107); Estimated Glomerular Filt Rate > 60 mL/min (>60); Glucose 99 mg/dL (80-110); HEMOLYSIS < 15 (0-50); Potassium 4.3 mmol/L (3.4-5.1); Sodium 124 mmol/L (137-145)
== END ==
LOC: LAB 16:17
PROVIDERS: PCP Family Medicine; Referring Provider Family Medicine; Visit Provider Family Medicine
DX: E87.1 Hypo-osmolality and hyponatremia (principal)
CPT/HCPCS: 36415; 80048

== ENCOUNTER → 2024-06-11 15:02 | Outpatient (CLI) | payer MEDICARE, BC, SELFPAY ==
[2024-04-23 16:49] VITALS: BMI 19.3
[2024-06-11 15:58] LABS: BUN Creatinine Ratio 27.4 (6-22); Blood Urea Nitrogen 17 mg/dL (7-17); Calcium 9.2 mg/dL (8.4-10.2); Carbon Dioxide 28 mmol/L (22-32); Chloride 95 mmol/L (98-107); Estimated Glomerular Filt Rate > 60 mL/min (>60); Glucose 89 mg/dL (80-110); HEMOLYSIS < 15 (0-50); Sodium 132 mmol/L (137-145)
== END ==
PROVIDERS: PCP Family Medicine; Referring Provider Family Medicine; Visit Provider Family Medicine
DX: I12.9 Hypertensive chronic kidney disease with stage 1 through stage 4 chronic kidney disease, or unspecified chronic kidney disease (principal); I50.9 Heart failure, unspecified; H93.19 Tinnitus, unspecified ear; I71.21 Aneurysm of the ascending aorta, without rupture; E87.1 Hypo-osmolality and hyponatremia
CPT/HCPCS: 36415; 80048

== ENCOUNTER → 2024-07-30 13:41 | Outpatient (CLI) | payer MEDICARE, BC, SELFPAY ==
[2024-04-23 16:49] VITALS: BMI 19.3
--- NOTE | 2024-07-30 13:42 | DI.ECHO.S_ITS ---
[place] +---------+ [facility] : : [id number] : [place] : : [id number] : : Phone: [phone] Echocardiogram Report + + :Name: CAMRYN PENA Study Date: 07/30/2024 Height: 65 in : :[facility] ReadingLocation: Weight: 128 lb : : Gender: Female BSA: 1.6 m2 : :: 1940 Age: 84 yrs BP: 146/78 mmHg: :Reason For Study: CONGESTIVE HEART FAILURE : :Ordering Physician: AUDIE, : :SUMI Performed By: Pedro Brooks : :Referring: SUMI BRONSON : + + Interpretation Summary Normal sinus rhythm. Normal left ventricular thickness and size with mildly reduced LV systolic function; EF is estimated at 40-45%. Stage II diastolic dysfunction. Normal chamber sizes. Moderate aortic regurgitation with pressure half time estimated at 304 msec and mildly dilated ascending aorta (3.9 cm diameter). Compared to prior echo 01/03/2023, LV is less dynamic. EF is down from 45-50% to 40-45%. Procedure: A two-dimensional transthoracic echocardiogram with color flow and Doppler was performed. The study quality was technically good. Comparison is made with the echocardiogram of 01/03/2023. The patient was in atrial fibrillation with heart rates between 79-94 bpm during the exam. Left Ventricle: The left ventricle is normal in size. There is normal left ventricular wall thickness. There is no ventricular septal defect visualized. The ejection fraction is estimated to be 40-45%. There is mild global hypokinesis of the left ventricle. Diastolic function could not be accurately assessed due to atrial fibrillation. Right Ventricle: Borderline right ventricular enlargement. The right ventricular systolic function is normal. Atria: The left atrial size is normal. Right atrial size is normal. There is no Doppler evidence for an interatrial shunt. Mitral Valve: The mitral valve leaflets appear normal. There is no evidence of stenosis, fluttering, or prolapse. There is no mitral regurgitation noted. Aortic Valve: The aortic valve is trileaflet. The aortic valve opens well. There is mild aortic regurgitation. Tricuspid Valve: The tricuspid valve is normal in structure and function. There is mild to moderate tricuspid regurgitation. The right ventricular systolic pressure is estimated to be at least 56 mmHg based on an estimated right atrial pressure of 3 mm Hg. Pulmonic Valve: The pulmonic valve leaflets are thin and pliable; valve motion is normal. There is no pulmonic valvular regurgitation. Great Vessels: The aortic root is mildly dilated. The ascending aorta is mildly enlarged. The pulmonary artery is normal size. The IVC is of normal diameter and collapses greater than 50% with a sniff. This suggests a low right atrial pressure of 3 mm Hg. Pericardium/ Pleura There is no pericardial effusion. There is no pleural effusion. MMode/2D Measurements & Calculations LVIDd: 4.3 cm LVOT diam: 2.1 cm LVIDs: 3.4 cm Ao root diam: 3.8 cm FS: 20.3 % asc Aorta Diam: 3.9 cm EPSS: 0.96 cm IVSd: 0.95 cm LVPWd: 0.88 cm LV mancia. diameter/BSA (cm/m^2): 2.6 LV sys. diameter/BSA (cm/m^2): 2.1 LA A2 area: 21.5 cm2 RA long axis: 4.7 cm LA A4 area: 15.6 cm2 RA area: 16.5 cm2 LA length (vol): 5.1 cm RA vol: 48.9 ml LA vol: 56.3 ml RA : 29.9 ml/m2 LA vol index: 34.4 ml/m2 IVC diam: 1.2 cm RVD1 (basal): 4.0 cm RVD2 (mid): 2.4 cm TAPSE: 2.2 cm Doppler Measurements & Calculations Ao V2 max: 133.3 cm/sec LVOT Max Michael: 111.0 cm/sec Ao V2 mean: 104.0 cm/sec LV V1 max P.9 mmHg Ao max P.1 mmHg LV V1 VTI: 26.2 cm Ao mean P.6 mmHg PAZ(I,D): 3.0 cm2 Ao V2 VTI: 29.7 cm PAZ(V,D): 2.8 cm2 sev ratio: 0.88 PAZ indexed to BSA (cm^2/m^2): 1.8 AI P1/2t: 229.7 msec AI dec slope: 555.9 cm/sec2 MV E max michael: 69.3 cm/sec TR max michael: 364.3 cm/sec MV A max michael: 103.0 cm/sec TR max P.1 mmHg MV E/A: 0.67 PA V2 max: 103.2 cm/sec Med Peak E' Michael: 4.0 cm/sec PA V2 mean: 69.4 cm/sec E/E' med: 17.4 PA mean P.1 mmHg Lat Peak E' Michael: 4.2 cm/sec PA pr(Accel): 32.8 mmHg E/E' lat: 16.5 E/e' average: 17.0 MV dec time: 0.14 sec SV(LVOT): 89.1 ml Electronically signed by: Casandra Morales M.D. on Reading Physician:07/31/2024 01:29 AM
--- NOTE | 2024-07-30 15:30 | DI.US.S_ITS ---
PROCEDURE: US CAROTID DOPPLER BI INDICATIONS: tinnitus TECHNIQUE: Color and pulse Doppler interrogation was performed of both carotid systems, with image documentation and velocity measurements. COMPARISON: None. FINDINGS: Stenosis calculations are based on SRU (Society of Radi[employer] in Ultras[employer]) criteria. Right side: Brachial blood pressure: 141/74 mm Hg. Common carotid artery peak systolic velocity: 53 cm/sec. Internal carotid artery peak systolic velocity: 74 cm/sec. Internal carotid artery end diastolic velocity: 18 cm/sec. External carotid artery peak systolic velocity: 156 cm/sec. ICA/CCA peak systolic ratio: 1.4 . Yu scale imaging description: Atherosclerotic plaque Percent internal carotid artery stenosis: Less than 50 . Vertebral artery: Flow direction is antegrade. Left side: Brachial blood pressure: 151/71 mm Hg. Common carotid artery peak systolic velocity: 64 cm/sec. Internal carotid artery peak systolic velocity: 129 cm/sec. Internal carotid artery end diastolic velocity: 37 cm/sec. External carotid artery peak systolic velocity: 67 cm/sec. ICA/CCA peak systolic ratio: 2.0 . Yu scale imaging description: Atherosclerotic plaque Percent internal carotid artery stenosis: Greater than 50 . Vertebral artery: Flow direction is antegrade. IMPRESSION: Elevated velocities in the proximal left ICA consistent with 50-69% stenosis Less than 50% stenosis on the right Approved by: Pedro Fernandez M.D. on 07/31/2024 at 16:12
== END ==
PROVIDERS: PCP Family Medicine; Referring Provider Family Medicine; Visit Provider Family Medicine
DX: I08.2 Rheumatic disorders of both aortic and tricuspid valves (principal); I65.23 Occlusion and stenosis of bilateral carotid arteries; I11.0 Hypertensive heart disease with heart failure; I50.9 Heart failure, unspecified; H93.19 Tinnitus, unspecified ear; I71.21 Aneurysm of the ascending aorta, without rupture; E87.1 Hypo-osmolality and hyponatremia; I77.89 Other specified disorders of arteries and arterioles
CPT/HCPCS: 93306; 93880

== ENCOUNTER → 2024-12-16 08:43 | Outpatient (CLI) | payer MEDICARE, BC, SELFPAY ==
[2024-04-23 16:49] VITALS: BMI 19.3
[2024-12-16 10:25] LABS: Alanine Aminotransferase 29 IU/L (<35); Albumin 4.4 g/dL (3.5-5.0); Albumin Globulin Ratio 2.0 (1.0-2.8); Alkaline Phosphatase 87 U/L (38-126); Blood Urea Nitrogen 15 mg/dL (7-17); Calcium 9.6 mg/dL (8.4-10.2); Carbon Dioxide 29 mmol/L (22-32); Chloride 99 mmol/L (98-107); Cholesterol 162 mg/dL (140-199); Estimated Glomerular Filt Rate > 60 mL/min (>60); Globulin 2.2 g/dL (1.7-4.1); Glucose 90 mg/dL (70-99); HDL Cholesterol 97 mg/dL (40-60); HEMOLYSIS < 15 (0-50); Potassium 4.4 mmol/L (3.4-5.1); Sodium 135 mmol/L (137-145); Total Protein 6.6 g/dL (6.3-8.2); Triglycerides 69 mg/dL (35-150)
== END ==
PROVIDERS: PCP Family Medicine; Referring Provider Family Medicine; Visit Provider Family Medicine
DX: I65.23 Occlusion and stenosis of bilateral carotid arteries (principal); I71.21 Aneurysm of the ascending aorta, without rupture; I50.9 Heart failure, unspecified
CPT/HCPCS: 36415; 80053; 80061